=== PATIENT | male | born 1935 | race Two or more races ===

== ENCOUNTER 2018-09-14 08:21 | Emergency (ER) | payer OTHER, MEDICAID ==
[~2018-09-14] VITALS: Ht 165.1 cm; Wt 86.2 kg
[~2018-09-14 08:21] MED LIST: ALBU0.084 NEB; CARV12.544 PO; FLUT250M2 IN; GEMF600T7 PO; ISOS20TA49 PO; LISI2.5T47 PO; METF-489 PO; NITR0.4S29 SL; OMEP20TA44 PO; TAMS0.4C36 PO
[2018-09-14 08:34] VITALS: BP 181/76
[2018-09-14] MEDS ORDERED: cefTRIAXone SOD 1,000 MG VL IM ONE (09:45)
== END 2018-09-14 10:10 | disposition home or self-care (01) ==
LOC: ER 08:21
DX: S20.212A Contusion of left front wall of thorax, initial encounter (principal); J44.9 Chronic obstructive pulmonary disease, unspecified; E11.9 Type 2 diabetes mellitus without complications; K21.9 Gastro-esophageal reflux disease without esophagitis; E78.5 Hyperlipidemia, unspecified; I10 Essential (primary) hypertension; I25.10 Atherosclerotic heart disease of native coronary artery without angina pectoris; Z90.49 Acquired absence of other specified parts of digestive tract; Z79.899 Other long term (current) drug therapy; W01.0XXA Fall on same level from slipping, tripping and stumbling without subsequent striking against object, initial encounter; Y93.89 Activity, other specified; Y92.89 Other specified places as the place of occurrence of the external cause; Y99.8 Other external cause status
CPT/HCPCS: 71101; 82962; 96372; 99283; J0696

== ENCOUNTER 2018-11-13 18:16 | Emergency (ER) | payer OTHER, MEDICAID ==
[~2018-11-13] VITALS: Ht 165.1 cm; Wt 86.2 kg
[2018-11-13 22:35] LABS: Basophils # (auto) 0 uL; Basophils % (auto) 0.4 % (0.0-2.0); Eosinophils # (auto) 0.3 uL; Eosinophils % (auto) 5.2 % (0.0-7.0); Hematocrit 42.5 % (41.0-53.0); Hemoglobin 14.2 g/dL (13.5-17.5); Lymphocytes # (auto) 2.2 uL; Lymphocytes % (auto) 34.2 % (10.0-50.0); Mean Corpuscular Hemoglobin 30.5 pg (28.0-32.0); Mean Corpuscular Hgb Conc. 33.5 g/dL (32.0-36.0); Mean Corpuscular Volume 91.2 fL (80.0-100.0); Monocytes % (auto) 15.8 % (0.0-12.0); Neutrophils # (auto) 2.9 uL; Neutrophils % (auto) 44.4 % (37.0-80.0); Nucleated Red Blood Cells % 0.1 %; Platelet Count (auto) 248 10^3/uL (140-450); Red Blood Cells 4.66 10^6/uL (4.5-5.90); Red Cell Distribution Width 15.4 % (11.8-14.3); White Blood Cell 6.5 10^3/uL (4.4-10.8)
[2018-11-13 22:40] LABS: Albumin 3.9 g/dL (3.4-5.0); BUN/Creatinine Ratio 14.4; Calcium 8.7 mg/dL (8.5-10.1); Potassium 4.9 mmol/L (3.5-5.1)
[2018-11-13 22:43] LABS: Bilirubin, Total 0.6 mg/dL (0.2-1.0); Total Protein 8.2 g/dL (6.4-8.2)
[2018-11-14] MEDS ORDERED: ACETAMINOPHEN 325 MG TAB PO ONE (01:45)
[2018-11-14 04:44] VITALS: BP 137/57
== END 2018-11-14 05:10 | disposition home or self-care (01) ==
LOC: ER 18:16
DX: J01.00 Acute maxillary sinusitis, unspecified (principal); J44.9 Chronic obstructive pulmonary disease, unspecified; E11.9 Type 2 diabetes mellitus without complications; K21.9 Gastro-esophageal reflux disease without esophagitis; E78.5 Hyperlipidemia, unspecified; I25.10 Atherosclerotic heart disease of native coronary artery without angina pectoris; I10 Essential (primary) hypertension; Z90.49 Acquired absence of other specified parts of digestive tract
CPT/HCPCS: 36415; 71046; 80053; 85025; 87804; 93005

== ENCOUNTER 2020-08-22 13:18 | Inpatient (IN) | payer OTHER, MEDICAID ==
[~2020-08-22] VITALS: Ht 165.1 cm; Wt 80.8 kg
[~2020-08-22 13:18] MED LIST changes: +ASPI-394 PO; +CHOL20007 PO; +FLUT250M2 INH; +LORA10CA12 PO
[2020-08-22] MEDS ORDERED: SODIUM CHLORIDE 0.9% 1,000 ML IV ONE ×2 (13:45)
[2020-08-22 14:51] LABS: Basophils # (auto) 0 10 ^3/uL (0-0.2); Basophils % (auto) 0.6 % (0.0-2.0); Eosinophils # (auto) 0 10 ^3/uL (0-0.8); Eosinophils % (auto) 0.2 % (0.0-7.0); Hematocrit 46.3 % (41.0-53.0); Hemoglobin 15.2 g/dL (13.5-17.5); Lymphocytes # (auto) 1.4 10 ^3/uL (0.4-5.4); Lymphocytes % (auto) 22.7 % (10.0-50.0); Mean Corpuscular Hemoglobin 29.1 pg (28.0-32.0); Mean Corpuscular Hgb Conc. 32.8 g/dL (32.0-36.0); Mean Corpuscular Volume 88.8 fL (80.0-100.0); Monocytes # (auto) 0.6 10 ^3/uL (0-1.3); Monocytes % (auto) 9.6 % (0.0-12.0); Neutrophils # (auto) 4.2 10 ^3/uL (1.6-8.6); Neutrophils % (auto) 66.9 % (37.0-80.0); Nucleated Red Blood Cells % 0.1 %; Platelet Count (auto) 305 10^3/uL (140-450); Red Blood Cells 5.22 10^6/uL (4.5-5.90); Red Cell Distribution Width 16.5 % (11.8-14.3); White Blood Cell 6.2 10^3/uL (4.4-10.8)
[2020-08-22 15:06] LABS: INR 1.08 (0.9-1.15); Partial Thromboplastin Time 34.1 sec (23.0-31.2)
[2020-08-22 15:08] LABS: Potassium 4.2 mmol/L (3.5-5.1)
[2020-08-22 15:09] LABS: BUN/Creatinine Ratio 15.2
[2020-08-22 15:15] LABS: Bilirubin, Total 0.6 mg/dL (0.2-1.0); Total Protein 9.3 g/dL (6.4-8.2)
[2020-08-22] MEDS ORDERED: MORPHINE SULF INJ 2 MG/ML SYRINGE 1ML IV PRN ×3 (18:30→20:15)
[2020-08-22] MEDS ORDERED: NITROGLYCERIN 0.4 MG SL TAB SL PRN ×2 (18:30→20:15)
[2020-08-22] MEDS ORDERED: OMEP-260 PO (18:42)
[2020-08-22] MEDS ORDERED: METF-869 PO (18:42)
[2020-08-22] MEDS ORDERED: CARV3.1240 PO (18:42)
[2020-08-22] MEDS ORDERED: LISI-648 PO (18:42)
[2020-08-22] MEDS ORDERED: ASPI-498 PO (18:42)
[2020-08-22] MEDS ORDERED: ISOS1TAB37 PO (18:42)
[2020-08-22] MEDS ORDERED: ALBUAER3 IN (18:43)
[2020-08-22] MEDS ORDERED: PANTOPRAZOLE 40 MG/10 ML VIAL INJ IV ONE (20:00)
[2020-08-22] MEDS ORDERED: METOPROLOL SUCCINATE XL 50 MG TAB PO ONE (20:00)
[2020-08-22] MEDS ORDERED: SODIUM CHLORIDE 0.9% 2,000 ML IV ONE (20:00)
[2020-08-22] MEDS: SODIUM CHLORIDE 0.9% 1,000 ML IV SCH (20:00)
[2020-08-22] MEDS ORDERED: HYDROcodone-ACET 5/325MG TAB PO PRN (20:15)
[2020-08-22] MEDS ORDERED: ALUM & MAG HYDROX-SIMETH LIQ(MAALOX) 30 ML PO PRN (20:15)
[2020-08-22] MEDS ORDERED: ISOSORBIDE DINITRATE 10 MG TAB PO ONE (20:15)
[2020-08-22] MEDS ORDERED: LORazepam 0.5 MG TAB PO PRN (20:15)
[2020-08-22] MEDS ORDERED: hydrALAZINE HCL 25 MG TAB PO PRN (20:15)
[2020-08-22] MEDS ORDERED: DOCUSATE SOD 100 MG CAP PO PRN (20:15)
[2020-08-22] MEDS ORDERED: DEXTROSE (50%) 50ML SYRG IV PRN (20:15)
[2020-08-22] MEDS ORDERED: ONDANSETRON HCL 4 MG/2 ML VIAL IV PRN (20:15)
[2020-08-22] MEDS ORDERED: cefTRIAXone 1GM/50ML D5W 50 ML IV ONE ×3 (20:45)
[2020-08-22 21:09] VITALS: BP 126/56
--- NOTE | 2020-08-22 21:09 | NUR ---
Telemetry admit from ER AKI BUSH admitted to Telemetry Assumed care of patient, awake and alert x 3. No S/S of distress/SOB or pain. Tele box 96 matches pt all leads in place. Bed lowered and locked side rails up x 2. Call light and bedside table are within reach. Instructed on POC and to call for assist PRN, will continue to monitor for changes Q1hr and PRN.All questions and concerns addressed, patient verbalized understanding.
[2020-08-22] MEDS ORDERED: CLINDAMYCIN 600MG IV 50 ML IV ONE (21:30)
[2020-08-22 22:00] VITALS: BP 126/56
[2020-08-22] MEDS: BUDESONIDE (INHALATION) 0.5 MG/2 ML NEB NEB SCH (22:00)
[2020-08-22] MEDS: ACCU-CHEK COMFORT CURVE STRIP VI SCH (22:00)
[2020-08-22] MEDS: CARVEDILOL 3.125 MG TAB PO SCH (22:00)
[2020-08-22] MEDS: InsuLIN REG 1unit/0.01ml Soln (100units/ml) SC SCH (22:00)
[2020-08-22] MEDS: ISOSORBIDE DINITRATE 10 MG TAB PO SCH (22:00)
[2020-08-22] MEDS: IPRATROPIUM BROM 0.5 MG/2.5ML INH SOL NEB SCH (22:00)
[2020-08-22] MEDS: CLINDAMYCIN 600MG IV 50 ML IV SCH (22:00)
[2020-08-22] MEDS: ATORVASTATIN 20 MG TAB PO SCH (22:00)
[2020-08-23] MEDS: SODIUM CHLORIDE 0.9% 1,000 ML IV SCH ×2 (02:40→09:20)
[2020-08-23] MEDS: IPRATROPIUM BROM 0.5 MG/2.5ML INH SOL NEB SCH ×6 (04:04→22:37)
[2020-08-23 04:26] VITALS: BP 126/56
[2020-08-23 05:00] VITALS: BP 95/49
[2020-08-23] MEDS: BUDESONIDE (INHALATION) 0.5 MG/2 ML NEB NEB SCH ×2 (05:34→19:10)
[2020-08-23] MEDS: CLINDAMYCIN 600MG IV 50 ML IV SCH (06:01)
[2020-08-23] MEDS: InsuLIN REG 1unit/0.01ml Soln (100units/ml) SC SCH ×4 (07:00→22:30)
[2020-08-23] MEDS: ACCU-CHEK COMFORT CURVE STRIP VI SCH ×4 (07:11→22:27)
[2020-08-23 07:42] LABS: Potassium 4.1 mmol/L (3.5-5.1)
--- NOTE | 2020-08-23 07:45 | NUR ---
Opening Shift Note Assumed care of patient, awake and alert. No S/S of distress/SOB or pain. Instructed on POC and to call for assist PRN, will continue to monitor for changes Q1hr and PRN.
[2020-08-23 07:49] LABS: BUN/Creatinine Ratio 20.3; Calcium 8.2 mg/dL (8.5-10.1)
[2020-08-23 08:00] VITALS: BP 125/56
[2020-08-23 08:55] VITALS: BP 125/56
[2020-08-23] MEDS: cefTRIAXone 1GM/50ML D5W 50 ML IV SCH (08:58)
[2020-08-23] MEDS: PANTOPRAZOLE 40 MG/10 ML VIAL INJ IV SCH (09:03)
[2020-08-23] MEDS: ASPirin 81 mg TAB PO SCH (09:04)
[2020-08-23] MEDS: ISOSORBIDE DINITRATE 10 MG TAB PO SCH ×2 (09:04→22:27)
[2020-08-23] MEDS: CARVEDILOL 3.125 MG TAB PO SCH ×2 (09:05→22:30)
[2020-08-23] MEDS ORDERED: CHOLECALCIFEROL (VITD3) 2,000 UNIT CAP PO SCH (10:00)
[2020-08-23] MEDS ORDERED: ENOXAPARIN SOD 40 MG/0.4 ML SYRINGE SC SCH (10:00)
[2020-08-23] MEDS ORDERED: FLUT1AER6 IN (11:42)
[2020-08-23 13:00] VITALS: BP 110/49
[2020-08-23] MEDS ORDERED: MORPHINE SULF INJ 2 MG/ML SYRINGE 1ML IV PRN (13:00)
[2020-08-23] MEDS ORDERED: ZINC SULFATE 220mg CAP or TAB PO ONE (13:00)
--- NOTE | 2020-08-23 13:15 | NUR ---
COVID SWAB WALKED TO LAB
--- NOTE | 2020-08-23 14:00 | NUR ---
URINE SAMPLE SENT TO LAB
--- NOTE | 2020-08-23 14:00 | NUR ---
PATIENT ARRIVAL TO UNIT FROM [place] NO S/S OF DISTRESS OR SOB NOTED AT TIME OF ARRIVAL. PATENT HOOKED UP TO OXYGEN AND NEW TELE FOR [facility]
--- NOTE | 2020-08-23 14:00 | NUR ---
PATIENT TRANSFERRED TO [facility] FOR THE [facility]INDED ROOM 234 REPORT GIVEN TO JENNIFER HALL. NO DISTRESS NOTED. PATIENT TRANSFERRED VIA WHEELCHAIR WITH ALL PERSONAL BELONGINGS.
--- NOTE | 2020-08-23 14:10 | NUR ---
Respiratory note: MEDICATION HELD PENDING COVID RESULTS.
--- NOTE | 2020-08-23 14:23 | NUR ---
Nutrition Assessment/Consult Notes Please refer to link for full assessment notes. Est Energy needs: [id number] (17-20 kcal/kgBW) Est Protein needs: 90-99 gms/day (1.0-1.1 gm/kgBW) Will continue to monitor and reassess prn. Addendum: 08/23/20 at [address] Amended: Links added.
[2020-08-23 14:35] LABS: Urine Bacteria FEW /hpf (None Seen); Urine Blood 2+ /uL (Negative); Urine Mucus FEW (None Seen); Urine Specific Gravity 1.023 (1.001-1.035); Urine WBC 3 /hpf (0 - 3)
[2020-08-23 14:52] LABS: Alcohol, Urine < 3.0 mg/dL (0-10); Amphetamine Screen, Urine NEGATIVE (NEGATIVE); Barbiturate Scree,Urine NEGATIVE (NEGATIVE); Benzodiazephine Screen, Urine NEGATIVE (NEGATIVE); Cannabinoid Screen, Urine NEGATIVE (NEGATIVE); Cocaine Screen, Urine NEGATIVE (NEGATIVE); Opiate Scree,Urine NEGATIVE (NEGATIVE); Phencyclidine Screen, Urine NEGATIVE (NEGATIVE)
[2020-08-23] MEDS: TAMSULOSIN HYDROCHLORIDE 0.4 MG CAP PO SCH (18:05)
--- NOTE | 2020-08-23 19:40 | NUR ---
OPEN NOTE assumed care of pt upon entering room pt awake and alert. pt on 3L nc no distress noted or expressed. pt denies any pain. pt oriented to this nurse, pt updated on plan of care. pt bed locked, low and 2x rails up. pt voided on bed, pericare and new underpad placed. call light in reach. this nurse to round q1hr and prn. pt encouraged to call as needed.
[2020-08-23 22:06] VITALS: BP 143/61
--- NOTE | 2020-08-23 22:08 | NUR ---
pt had bm in bed, pericare performed and linens changed.
[2020-08-23] MEDS: SUCRALFATE 1 GM/10 ML ORAL SUSP PO SCH (22:27)
[2020-08-23] MEDS: ASCORBIC ACID 500 MG TAB PO SCH (22:27)
[2020-08-23] MEDS: ATORVASTATIN 20 MG TAB PO SCH (22:27)
--- NOTE | 2020-08-23 22:36 | NUR ---
pt had second bout of bowel incontinence in the bed, pt encouraged to stay in bed since his attempt at getting up to restroom prior to elimination unsuccessful and he risks slipping and falling. rehabilitation nurse used to convey this message to which patient agreed. violet care, performed. bed linens changes and evs cleaned floor. bed alarm active.
--- NOTE | 2020-08-23 22:40 | NUR ---
AT BEDSIDE FOR MED WILLARD ROBB.
[2020-08-24] MEDS: IPRATROPIUM BROM 0.5 MG/2.5ML INH SOL NEB SCH ×4 (02:09→23:31)
--- NOTE | 2020-08-24 02:14 | NUR ---
AT BEDSIDE FOR MED WILLARD ROBB.
--- NOTE | 2020-08-24 02:29 | NUR ---
rounds pt breathing even and unlabored on 3L nc. no s/s distress observed. bed locked, low and 2x rails up. call light in reach, will continue to monitor.
[2020-08-24 05:00] VITALS: BP 109/67
[2020-08-24 05:36] LABS: Basophils # (auto) 0 10 ^3/uL (0-0.2); Basophils % (auto) 0.5 % (0.0-2.0); Eosinophils # (auto) 0 10 ^3/uL (0-0.8); Eosinophils % (auto) 0.1 % (0.0-7.0); Hematocrit 41.1 % (41.0-53.0); Hemoglobin 13.2 g/dL (13.5-17.5); Lymphocytes # (auto) 1.2 10 ^3/uL (0.4-5.4); Lymphocytes % (auto) 22.5 % (10.0-50.0); Mean Corpuscular Hemoglobin 28.6 pg (28.0-32.0); Mean Corpuscular Hgb Conc. 32.2 g/dL (32.0-36.0); Mean Corpuscular Volume 88.8 fL (80.0-100.0); Monocytes # (auto) 0.4 10 ^3/uL (0-1.3); Monocytes % (auto) 7.1 % (0.0-12.0); Neutrophils # (auto) 3.8 10 ^3/uL (1.6-8.6); Neutrophils % (auto) 69.8 % (37.0-80.0); Nucleated Red Blood Cells % 0.3 %; Platelet Count (auto) 230 10^3/uL (140-450); Red Blood Cells 4.62 10^6/uL (4.5-5.90); White Blood Cell 5.4 10^3/uL (4.4-10.8)
[2020-08-24 06:01] LABS: Potassium 4.3 mmol/L (3.5-5.1)
[2020-08-24 06:15] LABS: BUN/Creatinine Ratio 19.5; Calcium 8.4 mg/dL (8.5-10.1)
[2020-08-24] MEDS: BUDESONIDE (INHALATION) 0.5 MG/2 ML NEB NEB SCH ×2 (06:25→23:31)
[2020-08-24] MEDS: SUCRALFATE 1 GM/10 ML ORAL SUSP PO SCH ×4 (06:55→22:56)
[2020-08-24] MEDS: InsuLIN REG 1unit/0.01ml Soln (100units/ml) SC SCH ×4 (06:55→21:34)
[2020-08-24] MEDS: ACCU-CHEK COMFORT CURVE STRIP VI SCH ×4 (06:55→21:35)
--- NOTE | 2020-08-24 07:20 | NUR ---
OPENING NOTE ASSUMED CARE OF PT. ALERT AND ORIENTED. NO S/S OF SOB/DISTRESS NOTED. BED SET TO LOWEST POSITION/LOCKED. BEDSIDE RAILS UP X2. CALL LIGHT WITHIN REACH. INSTRUCTED PT TO CALL FOR ASSISTANCE. UPDATE ON POC. PT VERBALIZED UNDERSTANDING. WILL CONTINUE TO MONITOR Q1HR AND PRN FOR CHANGES.
[2020-08-24] MEDS: cefTRIAXone 1GM/50ML D5W 50 ML IV SCH (08:58)
[2020-08-24] MEDS: PANTOPRAZOLE 40 MG/10 ML VIAL INJ IV SCH (08:59)
[2020-08-24] MEDS: ASPirin 81 mg TAB PO SCH (08:59)
[2020-08-24] MEDS: AZITHROMYCIN 500MG/ 250ML 250 ML IV SCH (08:59)
[2020-08-24 09:00] VITALS: BP 116/72
[2020-08-24] MEDS: ZINC SULFATE 220mg CAP or TAB PO SCH (09:00)
[2020-08-24] MEDS: CARVEDILOL 3.125 MG TAB PO SCH ×2 (09:00→22:00)
[2020-08-24] MEDS: ISOSORBIDE DINITRATE 10 MG TAB PO SCH (09:01)
[2020-08-24] MEDS: ASCORBIC ACID 500 MG TAB PO SCH ×2 (09:01→22:56)
[2020-08-24] MEDS: CHOLECALCIFEROL (VITD3) 2,000 UNIT CAP PO SCH (09:01)
--- NOTE | 2020-08-24 11:13 | NUR ---
PAGED RE: PATIENTS INCREASED HR. AWAITING CALL BACK.
[2020-08-24] MEDS ORDERED: CARVEDILOL 3.125 MG TAB PO ONE (12:45)
[2020-08-24 13:00] VITALS: BP 140/60
[2020-08-24 17:00] VITALS: BP 111/54
[2020-08-24] MEDS: TAMSULOSIN HYDROCHLORIDE 0.4 MG CAP PO SCH (17:08)
--- NOTE | 2020-08-24 19:05 | NUR ---
OPENING NOTE- NOC SHIFT PATIENT IS ALERT AND ORIENTED X4 AND MAKES APPROPRIATE EYE CONTACT. PATIENT IS DIVEHI SPEAKING ONLY AND WILL NEED COMPUTER SYSTEMS CONSULTANT. PATIENT IS SITTING IN BED, DANGLING FEET. PATIENT DENIES DIZZINESS. NO S/SX OF DISTRESS, SOB OR PAIN. DISCUSSED POC WITH PATIENT AND INSTRUCTED PATIENT TO CALL PRN; PATIENT VERBALIZED UNDERSTANDING. BEDSIDE TABLE WITHIN REACH, CALL LIGHT WITHIN REACH, PERSONAL BELONGINGS WITHIN REACH. WILL CONTINUE TO MONITOR Q1H AND PRN.
[2020-08-24 20:05] VITALS: BP 110/50
--- NOTE | 2020-08-24 20:48 | NUR ---
REFUSED DINNER TRAY
[2020-08-24 22:00] VITALS: BP 110/50
[2020-08-24] MEDS: ATORVASTATIN 20 MG TAB PO SCH (22:56)
[2020-08-25] VITALS (7 sets, daily range): BP systolic 107–144; BP diastolic 50–84
[2020-08-25 05:30] LABS: Basophils # (auto) 0.1 10 ^3/uL (0-0.2); Basophils % (auto) 1.1 % (0.0-2.0); Eosinophils # (auto) 0 10 ^3/uL (0-0.8); Hemoglobin 13.4 g/dL (13.5-17.5); Lymphocytes # (auto) 1.1 10 ^3/uL (0.4-5.4); Lymphocytes % (auto) 22.5 % (10.0-50.0); Mean Corpuscular Hemoglobin 28.5 pg (28.0-32.0); Mean Corpuscular Volume 89.2 fL (80.0-100.0); Monocytes # (auto) 0.4 10 ^3/uL (0-1.3); Monocytes % (auto) 8.3 % (0.0-12.0); Neutrophils # (auto) 3.3 10 ^3/uL (1.6-8.6); Neutrophils % (auto) 68.1 % (37.0-80.0); Nucleated Red Blood Cells % 0.1 %; Platelet Count (auto) 235 10^3/uL (140-450); Red Blood Cells 4.71 10^6/uL (4.5-5.90); Red Cell Distribution Width 16.2 % (11.8-14.3); White Blood Cell 4.8 10^3/uL (4.4-10.8)
[2020-08-25 05:53] LABS: BUN/Creatinine Ratio 15.3; Calcium 8.5 mg/dL (8.5-10.1)
[2020-08-25] MEDS: InsuLIN REG 1unit/0.01ml Soln (100units/ml) SC SCH ×4 (06:32→23:13)
[2020-08-25] MEDS: SUCRALFATE 1 GM/10 ML ORAL SUSP PO SCH ×4 (06:32→22:38)
[2020-08-25] MEDS: ACCU-CHEK COMFORT CURVE STRIP VI SCH ×4 (06:32→22:00)
[2020-08-25] MEDS: BUDESONIDE (INHALATION) 0.5 MG/2 ML NEB NEB SCH ×2 (07:08→22:00)
[2020-08-25] MEDS: IPRATROPIUM BROM 0.5 MG/2.5ML INH SOL NEB SCH ×3 (07:08→22:00)
--- NOTE | 2020-08-25 08:00 | NUR ---
OPEN NOTE assumed care of pt upon entering room pt awake and alert. pt on 3L nc no distress noted or expressed.pt sitting bedside finished breakfast ate 100%. pt denies any pain. pt oriented to this nurse, pt updated on plan of care. pt bed locked, low and 2x rails up. call light in reach. this nurse to round q1hr and prn. pt encouraged to call as needed.
[2020-08-25] MEDS: cefTRIAXone 1GM/50ML D5W 50 ML IV SCH (08:48)
[2020-08-25] MEDS: ASPirin 81 mg TAB PO SCH (08:52)
[2020-08-25] MEDS: CARVEDILOL 3.125 MG TAB PO SCH ×2 (08:53→22:39)
[2020-08-25] MEDS: ZINC SULFATE 220mg CAP or TAB PO SCH (08:54)
[2020-08-25] MEDS: ASCORBIC ACID 500 MG TAB PO SCH ×2 (08:54→22:39)
[2020-08-25] MEDS: ISOSORBIDE DINITRATE 10 MG TAB PO SCH (08:54)
[2020-08-25] MEDS: CHOLECALCIFEROL (VITD3) 2,000 UNIT CAP PO SCH (08:54)
[2020-08-25] MEDS: AZITHROMYCIN 500MG/ 250ML 250 ML IV SCH (08:55)
[2020-08-25] MEDS: PANTOPRAZOLE 40 MG/10 ML VIAL INJ IV SCH (08:55)
--- NOTE | 2020-08-25 10:30 | NUR ---
BM PATIENT AMBULATED WITH FWW TO THE RESTROOM; REQUIRED STAND BY WITH MINIMAL ASSISTANCE. PATIENT UNABLE TO WIPE SELF; STAFF WIPED CLEAN THE PATIENT AFTER BM. TOLERATED WELL.
[2020-08-25 10:35] LABS: Hepatitis B Surface Antigen Negative (Negative); Hepatitis C Antibody Negative (Negative)
--- NOTE | 2020-08-25 11:24 | NUR ---
caregiver updated this rn spoke with Jaswant one of the patients caregivers. Per cg patient is confirmed to make all his own decisions and is able to sign all documents for consent for plasma and remdesivir.
--- NOTE | 2020-08-25 11:24 | NUR ---
provider bedside new orders to be carried out.
[2020-08-25] MEDS ORDERED: DexAMETHasone SOD PHOS 10MG/1ML VIAL INJ IV ONE (11:30)
--- NOTE | 2020-08-25 13:25 | NUR ---
IV removal INFILTRATED IV DC'd from left wrist with clean sterile technique, catheter fully intact. Pressure dressing applied to site. Patient tolerated well.
--- NOTE | 2020-08-25 15:00 | NUR ---
REMDESIVIR STARTING VITALS BP 107/57 P 83 RR 20 T 98.4 O2% 95 ON 2L NASAL CANNULA. DENIED PAIN OR SOB Addendum: 08/25/20 at 1807 by MATTHIAS MAO RN TIME STARTED 1700
--- NOTE | 2020-08-25 16:30 | NUR ---
IV insertion IV access obtained, via clean sterile technique by inserting 20 gauge catheter at after 1 attempt(s). IV secured properly. No trauma to site. Patient tolerated well.
[2020-08-25] MEDS ORDERED: REMDESIVIR 200 MG in NS 210ml LOADING DOSE ADULT IV ONE (17:00)
--- NOTE | 2020-08-25 17:00 | NUR ---
REMDESIVIR START TIME SEE PREVIOUS NOTE
--- NOTE | 2020-08-25 17:15 | NUR ---
REMDESIVIR VITALS 15 MIN AFTER STARTED BP 123/61 P 83 RR 20 T 100. O2% 91 ON 2L NASAL CANNULA. DENIED PAIN OR SOB
--- NOTE | 2020-08-25 17:30 | NUR ---
IV removal INFILTRATED IV DC'd with clean sterile technique, catheter fully intact. Pressure dressing applied to site. Patient tolerated well.
--- NOTE | 2020-08-25 17:40 | NUR ---
IV insertion LEFT FOREARM IV access obtained, via clean sterile technique by inserting 20 gauge catheter at after 2 attempt(s). IV secured properly. No trauma to site. Patient tolerated well. REMDESIVIR RUNNING
--- NOTE | 2020-08-25 18:30 | NUR ---
REMDESIVIR ENDING VITALS BP 130/60 P 83 RR 16 T 97.9 O2% 91 ON 2L NASAL CANNULA. DENIED PAIN OR SOB. TOLERATED WELL. FLUSHED WITH NS FOLLOWING TREATMENT
[2020-08-25] MEDS: TAMSULOSIN HYDROCHLORIDE 0.4 MG CAP PO SCH (18:53)
--- NOTE | 2020-08-25 19:20 | NUR ---
Opening Shift Note Received report from Blake, Assumed care of patient, awake and alert. No S/S of distress/SOB or pain. Instructed on POC and to call for assist PRN, will continue to monitor for changes Q1hr and PRN. Bed placed in lowest position, bed alarm turned on and call light within reach.
[2020-08-25] MEDS: ATORVASTATIN 20 MG TAB PO SCH (22:39)
[2020-08-26] VITALS (10 sets, daily range): BP systolic 96–142; BP diastolic 52–76
--- NOTE | 2020-08-26 03:29 | NUR ---
Patient is ambulatory using his walker with standby assist but heart rate tends to go up to 140BPM when patient is ambulating but goes down to 80's when at rest. Denies pain this time
--- NOTE | 2020-08-26 05:24 | NUR ---
Plasma infusion started. Patient is resting in bed alert and awake, no distress noted. Vitals are stable.
[2020-08-26] MEDS: BUDESONIDE (INHALATION) 0.5 MG/2 ML NEB NEB SCH ×2 (05:36→21:36)
[2020-08-26] MEDS: IPRATROPIUM BROM 0.5 MG/2.5ML INH SOL NEB SCH ×3 (05:36→21:36)
--- NOTE | 2020-08-26 06:15 | NUR ---
Plasma transfused. No reactions noted. Patient is laying in bed alert and awake, no distress noted and denies pain. Vitals are Blood pressure 100/60, temp 97.8, resp 18, pulse 102.
[2020-08-26 06:35] LABS: Basophils # (auto) 0 10 ^3/uL (0-0.2); Basophils % (auto) 0.1 % (0.0-2.0); Eosinophils # (auto) 0 10 ^3/uL (0-0.8); Hematocrit 42.9 % (41.0-53.0); Lymphocytes # (auto) 0.8 10 ^3/uL (0.4-5.4); Lymphocytes % (auto) 18.8 % (10.0-50.0); Mean Corpuscular Hemoglobin 28.7 pg (28.0-32.0); Mean Corpuscular Hgb Conc. 32.6 g/dL (32.0-36.0); Monocytes # (auto) 0.3 10 ^3/uL (0-1.3); Monocytes % (auto) 7.1 % (0.0-12.0); Neutrophils # (auto) 3.2 10 ^3/uL (1.6-8.6); Nucleated Red Blood Cells % 0.3 %; Platelet Count (auto) 265 10^3/uL (140-450); Red Blood Cells 4.87 10^6/uL (4.5-5.90); Red Cell Distribution Width 16.5 % (11.8-14.3); White Blood Cell 4.3 10^3/uL (4.4-10.8)
[2020-08-26 06:40] LABS: Albumin 2.9 g/dL (3.4-5.0); Calcium 8.6 mg/dL (8.5-10.1); Potassium 4.2 mmol/L (3.5-5.1)
[2020-08-26] MEDS: ACCU-CHEK COMFORT CURVE STRIP VI SCH ×4 (06:41→22:00)
[2020-08-26] MEDS: SUCRALFATE 1 GM/10 ML ORAL SUSP PO SCH ×4 (06:41→22:48)
[2020-08-26] MEDS: InsuLIN REG 1unit/0.01ml Soln (100units/ml) SC SCH ×4 (06:47→23:03)
[2020-08-26 06:50] LABS: BUN/Creatinine Ratio 20.3; Bilirubin, Total 0.3 mg/dL (0.2-1.0); Total Protein 7.5 g/dL (6.4-8.2)
[2020-08-26] MEDS: cefTRIAXone 1GM/50ML D5W 50 ML IV SCH (09:29)
[2020-08-26] MEDS: PANTOPRAZOLE 40 MG/10 ML VIAL INJ IV SCH (09:29)
[2020-08-26] MEDS: DexAMETHasone SOD PHOS 10MG/1ML VIAL INJ IV SCH (09:29)
[2020-08-26] MEDS: ASPirin 81 mg TAB PO SCH (09:29)
[2020-08-26] MEDS: ASCORBIC ACID 500 MG TAB PO SCH ×2 (09:30→22:48)
[2020-08-26] MEDS: ISOSORBIDE DINITRATE 10 MG TAB PO SCH (09:30)
[2020-08-26] MEDS: CARVEDILOL 3.125 MG TAB PO SCH ×2 (09:30→22:48)
[2020-08-26] MEDS: ZINC SULFATE 220mg CAP or TAB PO SCH (09:30)
[2020-08-26] MEDS: CHOLECALCIFEROL (VITD3) 2,000 UNIT CAP PO SCH (09:31)
--- NOTE | 2020-08-26 09:42 | NUR ---
PATIENT SUSTAINING HEART RATE IN 150'S NO S/S OF DISTRESS NOTED AT THIS TIME. SCHEDULED BETA FRANKY ADMINISTERED AT THIS TIME.
--- NOTE | 2020-08-26 10:10 | NUR ---
PAGED MD Jeremias DOUGLASS RE: HR SUSTAINING IN 150'S. AWAITING CALL BACK
[2020-08-26] MEDS ORDERED: DIGOXIN (250MCG/ML) 2 ML AMPULE IV ONE (11:45)
[2020-08-26] MEDS: AZITHROMYCIN 500MG/ 250ML 250 ML IV SCH (12:10)
--- NOTE | 2020-08-26 14:48 | NUR ---
Nutrition Followup Notes Pt wt is 90.0 kg/m2 Pt is positive for COVID. Pt is with a CCHO 75g diet, appetite is fair aeb ave 50% PO intake over 3 meals per RN doc. Consider a Renal Specific 90g protein,2gNa,K2,low phos/CCHO 60g diet. Est Energy needs: [id number] (17-20 kcal/kgBW) Est Protein needs: 90-99 gms/day (1.0-1.1 gm/kgBW) Will continue to monitor and reassess prn. LABS: Gluc 142 H, Alb 2.9 L GI: Pt had 1 BM today per RN doc BS: 20 low risk. Refer to wound assessment report for further details. PES: 1) Obesity r/t energy intake in excess of energy needs aeb BMI of 32.9 kg/m2 2) Altered nutrition related lab values r/t current medical condition aeb elev RFTs, low GFR, hypocalcemia Comments Will continue to monitor PO status, skin status, pertinent labs and weight trends. Will f/u in 3-5 days 1) Continue to closely monitor pt PO intake to meet at least 75% of meals 2) Consider a Renal Specific 90g protein,2gNa,K2,low phos/CCHO 60g diet 3) Continue current plan of care
[2020-08-26] MEDS: TAMSULOSIN HYDROCHLORIDE 0.4 MG CAP PO SCH (17:15)
--- NOTE | 2020-08-26 18:00 | NUR ---
IV insertion IV access obtained, via clean sterile technique by inserting 22 gauge catheter at RIGHT FOREARM after 1 attempt(s). IV secured properly. No trauma to site. Patient tolerated well.
[2020-08-26] MEDS: REMDESIVIR 100mg in NS 230ml DAILYx4DAYS (NO VENT) IV SCH (18:30)
--- NOTE | 2020-08-26 18:30 | NUR ---
PRE-INFUSION VITAL SIGNS BP 95/58 HR 134
--- NOTE | 2020-08-26 18:45 | NUR ---
15 MINUTE INFUSION VITAL SIGNS BP 91/69 HR 72
--- NOTE | 2020-08-26 19:20 | NUR ---
Opening Shift Note Received report from emmie Son RN. Assumed care of patient, awake and alert eating dinner. Assisted patient to cut meat and fixed coffee. No S/S of distress/SOB or pain. Instructed on POC and to call for assist PRN, will continue to monitor for changes Q1hr and PRN. Bed placed in lowest position, bed alarm turned on and call light within reach.
--- NOTE | 2020-08-26 20:30 | NUR ---
Post Remdesivir infusion vitals: 142/67, 90% on 10L Oxymizer, respirations 18, 136HR, temp 97.6. Patient is resting in bed alert and awake, no distress noted.
[2020-08-26] MEDS: ATORVASTATIN 20 MG TAB PO SCH (22:48)
[2020-08-27 05:00] VITALS: BP 142/73
[2020-08-27] MEDS: SUCRALFATE 1 GM/10 ML ORAL SUSP PO SCH ×4 (06:35→22:43)
[2020-08-27] MEDS: ACCU-CHEK COMFORT CURVE STRIP VI SCH ×4 (06:35→22:55)
[2020-08-27] MEDS: BUDESONIDE (INHALATION) 0.5 MG/2 ML NEB NEB SCH ×2 (06:48→21:46)
[2020-08-27] MEDS: IPRATROPIUM BROM 0.5 MG/2.5ML INH SOL NEB SCH ×3 (06:48→21:46)
[2020-08-27] MEDS: InsuLIN REG 1unit/0.01ml Soln (100units/ml) SC SCH ×4 (06:55→22:55)
[2020-08-27 07:55] LABS: Calcium 8.4 mg/dL (8.5-10.1)
[2020-08-27 08:02] LABS: Albumin 2.7 g/dL (3.4-5.0); BUN/Creatinine Ratio 28.7; Bilirubin, Total 0.3 mg/dL (0.2-1.0); Total Protein 7.1 g/dL (6.4-8.2)
[2020-08-27 09:00] VITALS: BP 105/63
[2020-08-27] MEDS: ASPirin 81 mg TAB PO SCH (10:19)
[2020-08-27] MEDS: CHOLECALCIFEROL (VITD3) 2,000 UNIT CAP PO SCH (10:20)
[2020-08-27] MEDS: ASCORBIC ACID 500 MG TAB PO SCH ×2 (10:20→22:43)
[2020-08-27] MEDS: ISOSORBIDE DINITRATE 10 MG TAB PO SCH (10:27)
[2020-08-27] MEDS: ZINC SULFATE 220mg CAP or TAB PO SCH (10:30)
[2020-08-27] MEDS: cefTRIAXone 1GM/50ML D5W 50 ML IV SCH (10:30)
[2020-08-27] MEDS: CARVEDILOL 3.125 MG TAB PO SCH ×2 (10:30→22:43)
[2020-08-27] MEDS: DexAMETHasone SOD PHOS 10MG/1ML VIAL INJ IV SCH (10:31)
[2020-08-27] MEDS: PANTOPRAZOLE 40 MG/10 ML VIAL INJ IV SCH (10:31)
--- NOTE | 2020-08-27 11:40 | NUR ---
Opening Shift Note Assumed patient care from RAFAEL Son. Patient currently out of bed with physical therapy using front wheel walker. No signs of distress at this time. Will continue to monitor q1hr and PRN.
--- NOTE | 2020-08-27 11:41 | NUR ---
CARE ENDORSED TO RAFAEL WELDON
[2020-08-27 12:27] VITALS: BP 89/47
[2020-08-27] MEDS: AZITHROMYCIN 500MG/ 250ML 250 ML IV SCH (12:46)
[2020-08-27 17:16] VITALS: BP 115/56
[2020-08-27] MEDS: TAMSULOSIN HYDROCHLORIDE 0.4 MG CAP PO SCH (17:59)
[2020-08-27] MEDS: REMDESIVIR 100mg in NS 230ml DAILYx4DAYS (NO VENT) IV SCH (17:59)
--- NOTE | 2020-08-27 18:05 | NUR ---
Remdesivir Medication administration starting BP 127/86 HR 84 15minute reassessment: 125/80 HR 69
--- NOTE | 2020-08-27 19:08 | NUR ---
Remdesivir Complete Medication administration complete. No signs of distress at this time. BP 116/53 HR 110 SpO2 93% on 12L oxymizer. Respirations even and unlabored.
--- NOTE | 2020-08-27 19:44 | NUR ---
Closing Shift Note Report given to NOC RN. No signs of distress at this time. Respirations even and unlabored on 12L oxymizer 93%SpO2.
--- NOTE | 2020-08-27 19:48 | NUR ---
Opening Shift Note Assumed care of patient, awake and alert. No S/S of distress/SOB or pain. Patient assisted to use the restroom. heart rate elevates with activity. Denies sob distress or pain. patient assisted back in bed. Instructed on POC and to call for assist PRN, will continue to monitor for changes Q1hr and PRN. bed in low position and call light within reach.
[2020-08-27 22:00] VITALS: BP 147/69
[2020-08-27] MEDS: ATORVASTATIN 20 MG TAB PO SCH (22:43)
--- NOTE | 2020-08-27 22:43 | NUR ---
Patient educated on how to use Incentive spirometer patient verbalized understanding
[2020-08-28] VITALS (8 sets, daily range): BP systolic 109–154; BP diastolic 48–79
--- NOTE | 2020-08-28 05:00 | NUR ---
0500 Patient assisted to use restroom. Upon ambulating and using restroom oxygen saturation is fluctuating between 85%-88%. Patient becomes SOB with activity. patient assisted back in bed, HOB elevated, Oxymizer at 13l, rr 22, HR 65bpm, denies pain.
--- NOTE | 2020-08-28 05:20 | NUR ---
Patient continues to fluctuate within 85%-88% patient denies distress or sob, patient placed on nonrebreather mask 15l, oxygen saturation 92% heart rate 74bpm, rr 21, denies sob distress or pain.
[2020-08-28 05:35] LABS: Basophils # (auto) 0 10 ^3/uL (0-0.2); Eosinophils # (auto) 0 10 ^3/uL (0-0.8); Hematocrit 44.1 % (41.0-53.0); Hemoglobin 14.3 g/dL (13.5-17.5); Lymphocytes # (auto) 0.8 10 ^3/uL (0.4-5.4); Lymphocytes % (auto) 7.1 % (10.0-50.0); Mean Corpuscular Hemoglobin 28.4 pg (28.0-32.0); Mean Corpuscular Hgb Conc. 32.5 g/dL (32.0-36.0); Mean Corpuscular Volume 87.4 fL (80.0-100.0); Monocytes # (auto) 0.9 10 ^3/uL (0-1.3); Monocytes % (auto) 8.2 % (0.0-12.0); Neutrophils % (auto) 84.7 % (37.0-80.0); Nucleated Red Blood Cells % 0.1 %; Platelet Count (auto) 368 10^3/uL (140-450); Red Blood Cells 5.05 10^6/uL (4.5-5.90); Red Cell Distribution Width 16.1 % (11.8-14.3); White Blood Cell 10.6 10^3/uL (4.4-10.8)
[2020-08-28 05:59] LABS: Albumin 3.1 g/dL (3.4-5.0); Bilirubin, Total 0.3 mg/dL (0.2-1.0); Calcium 8.8 mg/dL (8.5-10.1); Total Protein 7.5 g/dL (6.4-8.2)
[2020-08-28] MEDS: InsuLIN REG 1unit/0.01ml Soln (100units/ml) SC SCH ×4 (06:21→22:00)
[2020-08-28] MEDS: ACCU-CHEK COMFORT CURVE STRIP VI SCH ×4 (06:21→22:49)
[2020-08-28] MEDS: SUCRALFATE 1 GM/10 ML ORAL SUSP PO SCH ×4 (06:21→22:47)
--- NOTE | 2020-08-28 06:54 | NUR ---
patient rounds patient resting in bed denies sob distress or pain. patient oxygen titrated down to 13l nonrebreather oxygen saturation 94%. IV is intact and patent . Call light within reach and bed in low position.
--- NOTE | 2020-08-28 07:05 | NUR ---
REPORT GIVEN TO DAYSHIFT RN PATIENT DENIES SOB DISTRESS OR PAIN
[2020-08-28] MEDS: BUDESONIDE (INHALATION) 0.5 MG/2 ML NEB NEB SCH ×2 (07:40→22:21)
[2020-08-28] MEDS: IPRATROPIUM BROM 0.5 MG/2.5ML INH SOL NEB SCH ×3 (07:40→22:21)
[2020-08-28] MEDS: DexAMETHasone SOD PHOS 10MG/1ML VIAL INJ IV SCH (09:32)
[2020-08-28] MEDS: AZITHROMYCIN 500MG/ 250ML 250 ML IV SCH (09:32)
[2020-08-28] MEDS: PANTOPRAZOLE 40 MG/10 ML VIAL INJ IV SCH (09:32)
[2020-08-28] MEDS: cefTRIAXone 1GM/50ML D5W 50 ML IV SCH (09:32)
[2020-08-28] MEDS: CHOLECALCIFEROL (VITD3) 2,000 UNIT CAP PO SCH (09:33)
[2020-08-28] MEDS: ZINC SULFATE 220mg CAP or TAB PO SCH (09:33)
[2020-08-28] MEDS: ASPirin 81 mg TAB PO SCH (09:33)
[2020-08-28] MEDS: ASCORBIC ACID 500 MG TAB PO SCH ×2 (09:33→22:49)
[2020-08-28] MEDS: ISOSORBIDE DINITRATE 10 MG TAB PO SCH (09:34)
[2020-08-28] MEDS: CARVEDILOL 3.125 MG TAB PO SCH ×2 (09:34→22:49)
--- NOTE | 2020-08-28 11:22 | NUR ---
SPOKE WITH HOSPITALIST MARYCRUZ ABOUT PT STATUS. RECEIVED ORDER FOR HF THERAPY. PT WILL BE UPGRADED TO [facility] STATUS. ONCE MOVED HE WILL BE PLACED ON HIGH FLOW.
[2020-08-28] MEDS ORDERED: METOPROLOL TARTRATE 1MG/1ML-5ML VIAL IV ONE (11:44)
--- NOTE | 2020-08-28 12:30 | NUR ---
TELE PT TRANSFER TO [facility] AKI BUSH transferred to 262 via bed on separator operator and portable 02 on non-rebreather mask, oxygen saturation 91%, no distress noted. Patient connected to bedside monitor and oxygen. All patient medications and personal belongings transferred with patient to receiving floor. Physical assessment completed. RT transitioned patient to high flow. Tolerating well at this time with oxygen saturations maintaining greater than 92%. Denies pain or shortness of breath at this time. Patient educated to keep oxygen on as well as no ambulation without RN or tech at bedside. Patient verbalized understanding. Call light and personal belongings placed within reach. Will continue to monitor.
--- NOTE | 2020-08-28 12:36 | NUR ---
PT TRANSPORTED TO [facility] AND TRANSITIONED TO HF AT 60L 100% POX 92-93% PT APPEARS COMFORTABLE. NO DISTRESS NOTED.
--- NOTE | 2020-08-28 12:40 | NUR ---
CARDIOLOGY CONSULT DR.MEHTA MARIA MD REVIEWING MEDICAL CHART. ORDERS RECEIVED.
[2020-08-28] MEDS ORDERED: DIGOXIN (250MCG/ML) 2 ML AMPULE IV ONE (13:00)
--- NOTE | 2020-08-28 14:33 | NUR ---
AFIB RVR PATIENT HAS INTERMITTENT EPISODES OF ATRIAL FIBRILLATION WITH RAPID VENTRICULAR RATE 120-150'S, UNSUSTAINED. RATE WILL STAY FOR APPROXIMATELY 1 MINUTE AND CONVERT BACK TO SINUS 60-70'S. PATIENT RESTING IN BED WITHOUT ACTIVITY DURING EVENT. AWARE DUE TO PATIENT EXPERIENCING EPISODES PRIOR TO ARRIVAL TO [facility]. IV DIGOXIN DOSE ADMINISTERED. PATIENT DENIES PAIN OR DISTRESS.
--- NOTE | 2020-08-28 14:50 | NUR ---
ECHO LOCAL BULK DRIVER AT BEDSIDE.
--- NOTE | 2020-08-28 16:00 | NUR ---
REPOSITIONING PATIENT REFUSING TO BE REPOSITIONED AT THIS TIME. PATIENT NORMALLY ACTIVE AND AMBULATORY. PATIENT EDUCATED ON IMPORTANCE OF REPOSITIONING. PATIENT VERBALIZED UNDERSTANDING.
[2020-08-28] MEDS: REMDESIVIR 100mg in NS 230ml DAILYx4DAYS (NO VENT) IV SCH (17:00)
[2020-08-28] MEDS: TAMSULOSIN HYDROCHLORIDE 0.4 MG CAP PO SCH (17:44)
--- NOTE | 2020-08-28 17:56 | NUR ---
INTAKE/CARES PATIENT REPOSITIONED ON SIDE IN BED. PATIENT DOES NOT WANT TO EAT DINNER AT THIS TIME. CALL LIGHT AND PERSONAL BELONGINGS WITHIN REACH.
--- NOTE | 2020-08-28 18:19 | NUR ---
Respiratory note: RECEIVED PT ON HFNC UNIT, UNIT CHECK DONE FROM PTS ROOM DOOR DUE TO COVID PRECAUTIONS. UNIT CONNECTED TO RED OUTLET, MEDICAL AIR AND WALL O2 SOURCE, AMBU BAG AND MASK AT BEDSIDE. PT COMFORTABLY RESTING IN BEDS. NO S/S OF OF ACTIVE DISTRESS NOTED. WILL CONTINUE TO MONITOR.
--- NOTE | 2020-08-28 19:38 | NUR ---
REPORT REPORT GIVEN TO LEN HALL, CARE ENDORSED.
--- NOTE | 2020-08-28 20:00 | NUR ---
Opening Shift Note Assumed care of patient, awake and alert. No S/S of distress/SOB or pain. Instructed on POC and to call for assist PRN, will continue to monitor for changes. Pt resting, watching TV, and seems calm.
[2020-08-28] MEDS: AMIODARONE HCL 200 MG TAB PO SCH (22:48)
[2020-08-28] MEDS: ATORVASTATIN 20 MG TAB PO SCH (22:49)
[2020-08-29] VITALS (14 sets, daily range): BP systolic 105–156; BP diastolic 48–79
[2020-08-29 04:56] LABS: Albumin 2.6 g/dL (3.4-5.0); Calcium 8.2 mg/dL (8.5-10.1); Potassium 3.7 mmol/L (3.5-5.1)
[2020-08-29 05:02] LABS: BUN/Creatinine Ratio 31.7; Bilirubin, Total 0.4 mg/dL (0.2-1.0); Total Protein 6.3 g/dL (6.4-8.2)
--- NOTE | 2020-08-29 05:11 | NUR ---
Pt has remained stable this shift. Bathed and linens changed this morning. No S/S of distress but there was a recovery time after the bath of O2 sat from 86 up to 91% which took approx 30 minutes to recover. However, during this time pt did not show any stress or physical signs of shortness of breath.
[2020-08-29] MEDS: IPRATROPIUM BROM 0.5 MG/2.5ML INH SOL NEB SCH ×3 (06:37→21:49)
[2020-08-29] MEDS: BUDESONIDE (INHALATION) 0.5 MG/2 ML NEB NEB SCH ×2 (06:38→21:49)
[2020-08-29] MEDS: InsuLIN REG 1unit/0.01ml Soln (100units/ml) SC SCH ×4 (07:00→22:00)
[2020-08-29] MEDS: ACCU-CHEK COMFORT CURVE STRIP VI SCH ×4 (07:01→22:52)
[2020-08-29] MEDS: SUCRALFATE 1 GM/10 ML ORAL SUSP PO SCH ×4 (07:20→22:50)
[2020-08-29] MEDS: cefTRIAXone 1GM/50ML D5W 50 ML IV SCH (09:42)
[2020-08-29] MEDS: PANTOPRAZOLE 40 MG/10 ML VIAL INJ IV SCH (09:50)
[2020-08-29] MEDS: ASPirin 81 mg TAB PO SCH (09:51)
[2020-08-29] MEDS: DexAMETHasone SOD PHOS 10MG/1ML VIAL INJ IV SCH (09:51)
[2020-08-29] MEDS: CHOLECALCIFEROL (VITD3) 2,000 UNIT CAP PO SCH (09:55)
[2020-08-29] MEDS: ISOSORBIDE DINITRATE 10 MG TAB PO SCH (09:55)
[2020-08-29] MEDS: ZINC SULFATE 220mg CAP or TAB PO SCH (09:55)
[2020-08-29] MEDS: ASCORBIC ACID 500 MG TAB PO SCH ×2 (09:56→22:52)
[2020-08-29] MEDS: AMIODARONE HCL 200 MG TAB PO SCH ×2 (09:56→22:50)
[2020-08-29] MEDS: CARVEDILOL 3.125 MG TAB PO SCH ×2 (09:58→22:51)
[2020-08-29] MEDS: AZITHROMYCIN 500MG/ 250ML 250 ML IV SCH (10:54)
[2020-08-29] MEDS ORDERED: FUROSEMIDE 20 MG/2 ML VIAL IV ONE (12:30)
[2020-08-29] MEDS ORDERED: POTASSIUM CHL 20 Meq TABLET PO ONE (12:30)
[2020-08-29] MEDS ORDERED: ENOXAPARIN SOD 40 MG/0.4 ML SYRINGE SC ONE (12:30)
--- NOTE | 2020-08-29 13:02 | NUR ---
Nutrition Followup Notes WT: 90.0 kg Pt is positive for COVID. Pt is with a CCHO 75g 2 gm na ground diet, with adequte PO of 75% x 5 per RN doc. pt with no distress noted per RN Est Energy needs: [id number] (17-20 kcal/kgBW), Est Protein needs: 90-99 gms/day (1.0-1.1 gm/kgBW). Will continue to monitor and reassess prn. LABS: GLU 133 H CA 8.2 L ALB 2.6 L GI: Pt had 1 BM today per RN doc BS: 20 low risk. Refer to wound assessment report for further details. PES: 1) Obesity r/t energy intake in excess of energy needs aeb BMI of 32.9 kg/m2 2) Altered nutrition related lab values r/t current medical condition aeb elev RFTs, low GFR, hypocalcemia Comments Will continue to monitor PO status, skin status, pertinent labs and weight trends. Will f/u in 3-5 days 1) Refer to CDE on DC. 2) Continue current plan of care
--- NOTE | 2020-08-29 15:33 | NUR ---
Villa catheter insertion Patient assessed and determined to be in need of villa catheter. Order obtained from MD. Patient educated on catheter and reason for insertion. All questions answered. Villa catheter 16 gauge Danish inserted with clean sterile technique. Patient tolerated well.
--- NOTE | 2020-08-29 16:58 | NUR ---
REPORT GIVEN TO RECEIVING RAFAEL HUTCHINS RN VERBALIZED UNDERSTANDING. WILL PREPARE PATIENT FOR TRANSFER AFTER ACCU CHECK COMPLETE. Addendum: 08/29/20 at 1700 by Carlene Pena RN LAST ENTRY IN ERROR, WRONG PATIENT.
[2020-08-29] MEDS: TAMSULOSIN HYDROCHLORIDE 0.4 MG CAP PO SCH (17:02)
[2020-08-29] MEDS: REMDESIVIR 100mg in NS 230ml DAILYx4DAYS (NO VENT) IV SCH (17:07)
--- NOTE | 2020-08-29 20:00 | NUR ---
Opening Shift Note Assumed care of patient, awake and alert. No S/S of distress/SOB or pain. Instructed on POC and to call for assist PRN, will continue to monitor for changes.
[2020-08-29] MEDS: ATORVASTATIN 20 MG TAB PO SCH (22:52)
--- NOTE | 2020-08-29 23:48 | NUR ---
Pt remains stable. Pt was able to assist nurse in pushing himself up in bed with assist from nurse and bed positioning. Denies pain. Resting in bed watching TV, extra blanket given for comfort. Will continue to monitor.
[2020-08-30] VITALS (8 sets, daily range): BP systolic 97–173; BP diastolic 45–137
[2020-08-30 04:09] LABS: Calcium 8.2 mg/dL (8.5-10.1); Potassium 3.8 mmol/L (3.5-5.1)
[2020-08-30 04:12] LABS: BUN/Creatinine Ratio 31.3
[2020-08-30] MEDS: IPRATROPIUM BROM 0.5 MG/2.5ML INH SOL NEB SCH ×3 (06:48→18:38)
[2020-08-30] MEDS: BUDESONIDE (INHALATION) 0.5 MG/2 ML NEB NEB SCH ×2 (06:48→18:38)
--- NOTE | 2020-08-30 06:48 | NUR ---
Respiratory note: RECEIVED PT FROM PEANUT SHAKER ON HFNC ON 70L, 95% FIO2. NASAL PRONGS IN PLACE. NO SKIN REDNESS/BREAK DOWN NOTED. WATER LEVEL ADEQUATE. BS ARE COARSE/DIMINISHED BILATERALLY. MEDNEB TX GIVEN INLINE VIA AEROGEN WITH NO ADVERSE EFFECTS NOTED. FLOW DECREASED TO 60L, FIO2 85%. PT TOLERATED CHANGE WELL. RN AWARE OF CHANGES. WILL CONTINUE TO MONITOR PT. CHARTING COMPLETE FROM OUTSIDE OF PT ROOM PER COVID-19 PRECAUTIONS/PROTOCOL.
[2020-08-30] MEDS: InsuLIN REG 1unit/0.01ml Soln (100units/ml) SC SCH ×3 (07:00→18:16)
--- NOTE | 2020-08-30 08:09 | NUR ---
Pt remained stable this shift. No changes. Report given to AM shift, care endorsed.
[2020-08-30] MEDS: ACCU-CHEK COMFORT CURVE STRIP VI SCH ×4 (08:15→22:40)
[2020-08-30] MEDS: SUCRALFATE 1 GM/10 ML ORAL SUSP PO SCH ×4 (08:15→22:37)
[2020-08-30] MEDS: CARVEDILOL 3.125 MG TAB PO SCH ×2 (08:53→22:38)
[2020-08-30] MEDS: ASCORBIC ACID 500 MG TAB PO SCH ×2 (08:54→22:39)
[2020-08-30] MEDS: PANTOPRAZOLE 40 MG/10 ML VIAL INJ IV SCH (08:54)
[2020-08-30] MEDS: ASPirin 81 mg TAB PO SCH (08:54)
[2020-08-30] MEDS: DexAMETHasone SOD PHOS 10MG/1ML VIAL INJ IV SCH (08:54)
[2020-08-30] MEDS: AMIODARONE HCL 200 MG TAB PO SCH ×2 (08:54→22:37)
[2020-08-30] MEDS: ENOXAPARIN SOD 40 MG/0.4 ML SYRINGE SC SCH (08:54)
[2020-08-30] MEDS: ISOSORBIDE DINITRATE 10 MG TAB PO SCH (08:55)
[2020-08-30] MEDS: ZINC SULFATE 220mg CAP or TAB PO SCH (08:55)
[2020-08-30] MEDS: cefTRIAXone 1GM/50ML D5W 50 ML IV SCH (08:56)
[2020-08-30] MEDS: CHOLECALCIFEROL (VITD3) 2,000 UNIT CAP PO SCH (08:56)
[2020-08-30] MEDS: AZITHROMYCIN 500MG/ 250ML 250 ML IV SCH (10:00)
--- NOTE | 2020-08-30 10:12 | NUR ---
Family updated on pt status Family of AKI BUSH updated on patient's status and condition after password verification. All questions and concerns addressed. Jaswant verbalized understanding.
--- NOTE | 2020-08-30 12:10 | NUR ---
Respiratory note: ROUTINE HFNC CHECK COMPLETE. NASAL PRONGS IN PLACE. NO SKIN BREAK DOWN NOTED. WATER LEVEL ADEQUATE. DECREASED FLOW TO 55L, 70% FIO2. PT TOLERATED CHANGE WELL. SPO2 94%, HR 60, RR 16. RN AWARE. WILL CONTINUE TO MONITOR PT. CHARTING COMPLETE FROM OUTSIDE OF PT ROOM PER COVID-19 PRECAUTIONS/PROTOCOL.
[2020-08-30] MEDS ORDERED: FUROSEMIDE 20 MG/2 ML VIAL IV ONE (12:45)
[2020-08-30] MEDS ORDERED: POTASSIUM CHL 20 Meq TABLET PO ONE (12:45)
--- NOTE | 2020-08-30 14:48 | NUR ---
Respiratory note: ROUTINE HFNC CHECK COMPLETE. NASAL PRONGS IN PLACE. NO SKIN BREAK DOWN NOTED. WATER LEVEL ADEQUATE. INCREASED FLOW TO 60L, 85% FIO2 DUE TO PT DESATURATIONS IN MID 70'S. MEDNEB TX GIVEN INLINE VIA AEROGEN. CXR ORDERED FOR POSSIBLE ASPIRATION. RN AWARE. WILL CONTINUE TO MONITOR PT. CHARTING COMPLETE FROM OUTSIDE OF PT ROOM PER COVID-19 PRECAUTIONS/PROTOCOL.
[2020-08-30] MEDS: TAMSULOSIN HYDROCHLORIDE 0.4 MG CAP PO SCH (16:56)
--- NOTE | 2020-08-30 17:18 | NUR ---
Pt is an alert and oriented, primarily bengali speaking male. Pt resides alone and has an [facility] caregiver that comes for 5 hours a day , 5 days a week. Per caregiver she was ill for several days and unable to see patient. Pt has no family in the area and will be returning home or possible SNF. Pt will have to be reassessed once closer to discharge and more stable. Will followup and provide intervention as appropriate. Addendum: 08/30/20 at 1720 by CODY FOLEY Amended: Links added.
[2020-08-30] MEDS: ATORVASTATIN 20 MG TAB PO SCH (22:39)
[2020-08-31] VITALS (12 sets, daily range): BP systolic 106–148; BP diastolic 50–73
--- NOTE | 2020-08-31 | NUR ---
Pt remains stable. Desat to 67% but able to rebound after 15 min of coaching. Will continue to monitor.
[2020-08-31] MEDS: InsuLIN REG 1unit/0.01ml Soln (100units/ml) SC SCH ×5 (00:03→21:54)
[2020-08-31] MEDS: BUDESONIDE (INHALATION) 0.5 MG/2 ML NEB NEB SCH ×2 (06:29→22:38)
[2020-08-31] MEDS: IPRATROPIUM BROM 0.5 MG/2.5ML INH SOL NEB SCH ×3 (06:29→22:38)
[2020-08-31] MEDS: SUCRALFATE 1 GM/10 ML ORAL SUSP PO SCH ×4 (07:00→21:49)
[2020-08-31] MEDS: ACCU-CHEK COMFORT CURVE STRIP VI SCH ×4 (07:00→21:52)
--- NOTE | 2020-08-31 07:00 | NUR ---
Pt remains stable this shift. No further episodes of desat. Report given, care endorsed.
--- NOTE | 2020-08-31 08:00 | NUR ---
REPORT REPORT RECEIVED FROM LEN HALL, CARE ASSUMED. PT RESTING IN BED, NO DISTRESS. VS REMAIN STABLE.
--- NOTE | 2020-08-31 08:25 | NUR ---
INITIAL CONTACT MALE PATIENT SITTING IN HIGH FOWLERS FOR BREAKFAST. DENIES PAIN OR DISTRESS AT THIS TIME. AFEBRILE. PATIENT IS ALERT AND ORIENTED. MOVES ALL EXTREMITIES WITH EQUAL STRENGTH, ABLE TO REPOSITION SELF WITH SOME ASSISTANCE. PULSES PALPABLE RADIAL AND PEDAL BILATERALLY NO EDEMA NOTED. LUNGS HAVE EXPIRATORY WHEEZES. TOLERATING HIGH FLOW OXYGEN SATURATION 94% WITH 60 L AND FIO2 80%. NON-PRODUCTIVE COUGH, DESATURATION OCCURS WITH COUGHING TO 80%. HATFIELD CATHETER PRESENT, PATENT, AND SECURED BELOW BLADDER. PERFORMED ORAL AND PERSONAL CARE. SKIN INTACT. BED LOCKED IN LOWEST POSITION, ALL PERSONAL BELONGINGS PLACED WITHIN REACH. PATIENT INSTRUCTED TO CALL FOR ASSISTANCE. PATIENT VERBALIZED UNDERSTANDING.
[2020-08-31] MEDS: ASCORBIC ACID 500 MG TAB PO SCH ×2 (09:11→21:52)
[2020-08-31] MEDS: ASPirin 81 mg TAB PO SCH (09:11)
[2020-08-31] MEDS: ENOXAPARIN SOD 40 MG/0.4 ML SYRINGE SC SCH (09:11)
[2020-08-31] MEDS: AMIODARONE HCL 200 MG TAB PO SCH ×2 (09:11→21:49)
[2020-08-31] MEDS: PANTOPRAZOLE 40 MG/10 ML VIAL INJ IV SCH (09:11)
[2020-08-31] MEDS: ZINC SULFATE 220mg CAP or TAB PO SCH (09:11)
[2020-08-31] MEDS: CHOLECALCIFEROL (VITD3) 2,000 UNIT CAP PO SCH (09:12)
[2020-08-31] MEDS: CARVEDILOL 3.125 MG TAB PO SCH ×2 (09:12→21:51)
[2020-08-31] MEDS: ISOSORBIDE DINITRATE 10 MG TAB PO SCH (09:13)
--- NOTE | 2020-08-31 10:45 | NUR ---
PT PHYSICAL THERAPIST AT BEDSIDE FOR RANGE OF MOTION EXERCISE.
[2020-08-31] MEDS: cefTRIAXone 1GM/50ML D5W 50 ML IV SCH (10:49)
[2020-08-31] MEDS: DexAMETHasone SOD PHOS 10MG/1ML VIAL INJ IV SCH (11:02)
[2020-08-31] MEDS: AZITHROMYCIN 500MG/ 250ML 250 ML IV SCH (11:02)
--- NOTE | 2020-08-31 11:32 | NUR ---
DESATURATION PATIENT HAS FREQUENT COUGHING EPISODES CAUSING PATIENTS O2 SATURATIONS TO DROP TO 77%. PATIENT WAS NOT RECOVERING, SATURATIONS MAINTAINING ONLY 74-77%. RT PAGED. HIGH FLOW CHANGED TO 60L AND 90% FIO2. PATIENT POSITIONED IN HIGH FOWLERS. SATURATIONS INCREASED BRIEFLY TO 88-90%. PATIENT HAD ANOTHER COUGHING EPISODE WITH O2 SATURATIONS DECREASING TO 77%. MD PAGED FOR COUGHING MEDICATION.
--- NOTE | 2020-08-31 11:39 | NUR ---
MD RETURNED PAGED AWARE OF COUGHING EPISODES AND DESATURATION. ORDERS OBTAINED FOR COUGH MEDICATION.
[2020-08-31] MEDS ORDERED: PROMETHAZINE W/CODEINE 5 ML ORAL SYRUP PO PRN (11:45)
--- NOTE | 2020-08-31 12:08 | NUR ---
MD VISIT DR.GOMEZ SIFUENTES AT BEDSIDE. WANING TO ODER FIVE ADDITIONAL DOSES OF REMDESIVER FOR PATIENT. SPOKE WITH ESSIE PHARMACIST, SHE IS CONTACTING HER DATABASE PROGRAMMER ANALYST. PER PHARMACIST, THEY WILL NOT APPROVE OF ADDITIONAL DOSES. WILL NOTIFY .
--- NOTE | 2020-08-31 12:16 | NUR ---
MD VISIT DR.NOROHNA SIFUENTES AT BEDSIDE.
[2020-08-31] MEDS ORDERED: FUROSEMIDE 20 MG/2 ML VIAL IV ONE (12:45)
[2020-08-31] MEDS ORDERED: POTASSIUM CHL 20 Meq TABLET PO ONE (12:45)
--- NOTE | 2020-08-31 13:41 | NUR ---
ROUNDS PATIENT SLEEPING IN HIGH FOWLERS. NO SIGNS OF DISTRESS. OXYGEN SATURATION 96%. WILL CONTINUE TO MONITOR.
--- NOTE | 2020-08-31 14:30 | NUR ---
IV INSERTION IV access obtained, via clean sterile technique by inserting 22 gauge catheter at right hand after 1 attempt. IV secured properly. No trauma to site. Patient tolerated well.
--- NOTE | 2020-08-31 16:26 | NUR ---
CONTACT CALLED FOR UPDATED ON PATIENT. PASSWORD VERIFIED.
[2020-08-31] MEDS: TAMSULOSIN HYDROCHLORIDE 0.4 MG CAP PO SCH (17:28)
--- NOTE | 2020-08-31 17:50 | NUR ---
ROUNDS PATIENT REPOSITIONED IN BED FOR DINNER. VITAL REMAIN STABLE AT THIS TIME. OXYGEN SATURATION MAINTAINING 90-91%. DENIES PAIN OR DISTRESS. CALL LIGHT AND PERSONAL BELONGINGS WITHIN REACH.
--- NOTE | 2020-08-31 19:05 | NUR ---
Opening Shift Note Received shift report and assumed care of patient, awake and alert watching TV patient currently on HF NC 50L @ 90% FIO2 No S/s of distress at this time.
--- NOTE | 2020-08-31 19:11 | NUR ---
REPORT REPORT GIVEN TO BRYSON HALL, CARE ENDORSED.
--- NOTE | 2020-08-31 20:00 | NUR ---
Elevated Temp Patient temp is 99.0 cooling measures implemented will continue to monitor. Addendum: 08/31/20 at 2101 by BRYSON AMBROCIO RN RN Documented on the wrong patient.
[2020-08-31] MEDS: ATORVASTATIN 20 MG TAB PO SCH (21:52)
--- NOTE | 2020-08-31 22:12 | NUR ---
Medication Held Coreg Held HR 56 BP 114/52
[2020-09-01] VITALS (11 sets, daily range): BP systolic 116–148; BP diastolic 54–70
--- NOTE | 2020-09-01 00:24 | NUR ---
Patient Rounding Patient resting quietly in bed without any s/s of distress, assisted patient with position changed, patient tolerated process with Minimal distress.
--- NOTE | 2020-09-01 03:00 | NUR ---
PATIENT ROUNDING Patient resting quietly in bed with eyes closed without s/s of distress
[2020-09-01 04:47] LABS: Hematocrit 44.2 % (41.0-53.0); Hemoglobin 14.2 g/dL (13.5-17.5); Mean Corpuscular Hemoglobin 28.2 pg (28.0-32.0); Mean Corpuscular Hgb Conc. 32.1 g/dL (32.0-36.0); Mean Corpuscular Volume 87.9 fL (80.0-100.0); Platelet Count (auto) 456 10^3/uL (140-450); Red Blood Cells 5.03 10^6/uL (4.5-5.90); Red Cell Distribution Width 16.7 % (11.8-14.3); White Blood Cell 9.7 10^3/uL (4.4-10.8)
[2020-09-01 04:48] LABS: Potassium 4.3 mmol/L (3.5-5.1)
[2020-09-01 04:53] LABS: BUN/Creatinine Ratio 34.4; Calcium 8.8 mg/dL (8.5-10.1)
[2020-09-01 05:13] LABS: Basophils % (manual) 0 (0.0-2.0); Blast Cells 0; Eosinophils % (manual) 0 (0-7); Myelocytes % 0; Promyelocytes % 0; Reactive Lymphocytes 0
[2020-09-01 05:50] LABS: Band Neutrophils % (manual) 2; Lymphocytes % (manual) 17 (10.0-50.0); Metamyelocytes % 1; Monocytes % (manual) 5 (0-12)
[2020-09-01] MEDS: IPRATROPIUM BROM 0.5 MG/2.5ML INH SOL NEB SCH ×3 (06:04→21:22)
[2020-09-01] MEDS: BUDESONIDE (INHALATION) 0.5 MG/2 ML NEB NEB SCH ×2 (06:04→21:22)
[2020-09-01] MEDS: SUCRALFATE 1 GM/10 ML ORAL SUSP PO SCH ×4 (06:12→22:29)
[2020-09-01] MEDS: ACCU-CHEK COMFORT CURVE STRIP VI SCH ×4 (06:13→22:31)
[2020-09-01] MEDS: InsuLIN REG 1unit/0.01ml Soln (100units/ml) SC SCH ×4 (06:23→22:30)
--- NOTE | 2020-09-01 06:36 | NUR ---
Shift END Note Will provide report and endorse care, patient has been stable thought out the shift, patient remains sinus jose c on HF NC 60L@ 90% FIO2 with oxygen saturation in the mid 90's through out the shift.
--- NOTE | 2020-09-01 07:45 | NUR ---
INITIAL CONTACT REPORT RECEIVED FROM BRYSON HALL, CARE ASSUMED. MALE PATIENT OBSERVED SITTING IN HIGH FOWLERS. DENIES PAIN OR DISTRESS AT THIS TIME. AFEBRILE. PATIENT IS ALERT AND ORIENTED. MOVES ALL EXTREMITIES WITH EQUAL STRENGTH, NEEDS ASSISTANCE WITH REPOSITIONING. LOWER EXTREMITIES OFF LOADED ON PILLOWS. PULSES PALPABLE RADIAL AND PEDAL BILATERALLY NO EDEMA NOTED. LUNGS DIMINISHED, TOLERATING HIGH FLOW. OXYGEN SATURATION 96%. NON-PRODUCTIVE COUGH. HATFIELD CATHETER PRESENT, PATENT, AND SECURED BELOW BLADDER. PERFORMED ORAL AND PERSONAL CARE. SKIN INTACT. BED LOCKED IN LOWEST POSITION, ALL PERSONAL BELONGINGS PLACED WITHIN REACH. PATIENT INSTRUCTED TO CALL FOR ASSISTANCE. PATIENT VERBALIZED UNDERSTANDING.
[2020-09-01] MEDS: cefTRIAXone 1GM/50ML D5W 50 ML IV SCH (08:57)
--- NOTE | 2020-09-01 09:20 | NUR ---
PT PHYSICAL THERAPIST AT BEDSIDE.
--- NOTE | 2020-09-01 09:29 | NUR ---
CONTACT PATIENT BROTHER WHO LIVES IN [place] CALLED FOR UPDATE. DID NOT KNOW PASSWORD. PHONE CALL TRANSFERRED TO BEDSIDE PHONE.
[2020-09-01] MEDS: AZITHROMYCIN 250 MG TAB PO SCH (09:43)
[2020-09-01] MEDS: ENOXAPARIN SOD 40 MG/0.4 ML SYRINGE SC SCH (09:44)
[2020-09-01] MEDS: DexAMETHasone SOD PHOS 10MG/1ML VIAL INJ IV SCH (09:44)
[2020-09-01] MEDS: ZINC SULFATE 220mg CAP or TAB PO SCH (09:44)
[2020-09-01] MEDS: POTASSIUM CHL 20 Meq TABLET PO SCH (09:44)
[2020-09-01] MEDS: ASCORBIC ACID 500 MG TAB PO SCH ×2 (09:44→22:30)
[2020-09-01] MEDS: CHOLECALCIFEROL (VITD3) 2,000 UNIT CAP PO SCH (09:44)
[2020-09-01] MEDS: PANTOPRAZOLE 40 MG/10 ML VIAL INJ IV SCH (09:44)
[2020-09-01] MEDS: ASPirin 81 mg TAB PO SCH (09:44)
[2020-09-01] MEDS: ISOSORBIDE DINITRATE 10 MG TAB PO SCH (09:45)
[2020-09-01] MEDS: AMIODARONE HCL 200 MG TAB PO SCH ×2 (09:46→22:32)
[2020-09-01] MEDS: CARVEDILOL 3.125 MG TAB PO SCH ×2 (09:46→22:00)
[2020-09-01] MEDS: FUROSEMIDE 20 MG/2 ML VIAL IV SCH (10:00)
--- NOTE | 2020-09-01 10:20 | NUR ---
CARES PARTIAL LINEN CHANGE COMPLETED. PATIENT HAD SMALL SMEAR BOWEL MOVEMENT. EMILEE CARE COMPLETED AND GENTLE OPTIFOAM PLACED ON SACRUM FOR PREVENTION. PATIENT PULLED UP AND REPOSITION IN BED IN HIGH FOWLERS. PATIENT TOLERATED ACTIVITY WITHOUT DESATURATION LESS THAN 90%. PATIENT DID HAVE COUGHING EPISODE AFTER MEDICATION ADMINISTRATION IN WHICH HIS OXYGEN SATURATION DROPPED TO 77%, RECOVERED TO 89% AFTER 5 MINUTES. HEART RATE INCREASED TO 120'S FOR SHORT PERIOD, BUT THEN CONVERTED BACK TO SINUS RHYTHM WITH PAC'S 60'S. ALL OTHER VIAL SIGNS REMAIN STABLE. ALL EXTREMITIES OFF LOADED ON PILLOWS. CALL LIGHT AND PERSONAL BELONGINGS PLACED WITHIN REACH. PATIENT INSTRUCTED TO CALL FOR ASSISTANCE. PATIENT VERBALIZED UNDERSTANDING.
--- NOTE | 2020-09-01 12:08 | NUR ---
Nutrition Followup Notes WT: 89.6 kg Pt is positive for COVID. Pt is with a CCHO 75g 2 gm na ground diet, with a fair appetite aeb pt with 59% of po intake avg x 2 days per Rn nutrition note Est Energy needs: 6550-3867 (17-20 kcal/kgBW), Est Protein needs: 90-99 gms/day (1.0-1.1 gm/kgBW). Will continue to monitor and reassess prn. LABS: GLU 137H, alb 2.6L, BUN 42H GI: Pt had 1 BM 08/31 per RN doc BS: 18 mod risk. Refer to wound assessment report for further details. PES: 1) Obesity r/t energy intake in excess of energy needs aeb BMI of 32.9 kg/m2 2) Altered nutrition related lab values r/t current medical condition aeb elev RFTs, low GFR, hypocalcemia Comments Will continue to monitor PO intake, skin status, pertinent labs and weight trends. Will f/u in 3-5 days 1) Refer to CDE on DC. 2) Continue current plan of care
--- NOTE | 2020-09-01 12:10 | NUR ---
ROUNDS PATIENT REPOSITIONED IN HIGH FOWLERS FOR LUNCH. VITAL SIGNS STABLE. CALL LIGHT WITHIN REACH.
--- NOTE | 2020-09-01 14:40 | NUR ---
MD VISIT DR.NOROHNA SIFUENTES AT BEDSIDE.
[2020-09-01] MEDS: TAMSULOSIN HYDROCHLORIDE 0.4 MG CAP PO SCH (18:04)
--- NOTE | 2020-09-01 18:10 | NUR ---
ROUNDS PATIENT REPOSITIONED IN BED FOR DINNER. DENIES PAIN OR DISTRESS. VITALS REMAIN STABLE. CALL LIGHT AND PERSONAL BELONGINGS PLACED WITHIN REACH. WILL CONTINUE TO MONITOR.
--- NOTE | 2020-09-01 19:13 | NUR ---
REPORT REPORT GIVEN TO TERESA HALL, CARE ENDORSED.
--- NOTE | 2020-09-01 20:00 | NUR ---
Opening Shift Note Received report from day shift RN Lauren Jang RN. Pt came in on 08/22/20 with a CC of weakness and body pain for 4 days. Patient was COVID positive. Patient was admitted to TELE with a diagnosis of COVID, dehydration, and ROD. On 08/28 the patient was brought to [facility] due to the requirement of high flow o2. Pt's pertinent PMH includes CHF, COPD, Asthma, CAD, HTN, jeremías, Afib. Pt has had 4 doses of remdesivir and 1 dose of convalescent plasma. In this visit, patient has had intermittent episodes of A Fib RVR in which he is getting Amiodarone and digoxin PO. Pt is currently AAOx4, afebrile, oriented to staff and POC. Pt is currently on high flow o2 60L FIO2 at 90% spo2 95%. VSS at this time. Bed is locked at lowest position, side rails are up, call light is within reach. Pt educated aviation technical systems specialist light use and instructed to call if he needs anything. Pt verbalized understanding. Will continue to monitor.
--- NOTE | 2020-09-01 22:00 | NUR ---
Carvedilol held beta rosalia held due to patients HR being in the 50's, at times in the 40's.
[2020-09-01] MEDS: ATORVASTATIN 20 MG TAB PO SCH (22:30)
[2020-09-02] VITALS (10 sets, daily range): BP systolic 100–152; BP diastolic 43–80
--- NOTE | 2020-09-02 03:45 | NUR ---
Linen change provided Linen change provided for the patient. Pt spo2 desaturation to 81% upon turning. Within a couple minutes pt went up to 92-94%. No s/s of distress noted. Will continue to monitor
[2020-09-02] MEDS: BUDESONIDE (INHALATION) 0.5 MG/2 ML NEB NEB SCH ×2 (05:43→23:12)
[2020-09-02] MEDS: IPRATROPIUM BROM 0.5 MG/2.5ML INH SOL NEB SCH ×3 (05:44→23:12)
[2020-09-02] MEDS: InsuLIN REG 1unit/0.01ml Soln (100units/ml) SC SCH ×4 (06:34→22:38)
[2020-09-02] MEDS: ACCU-CHEK COMFORT CURVE STRIP VI SCH ×4 (06:34→22:17)
[2020-09-02] MEDS: SUCRALFATE 1 GM/10 ML ORAL SUSP PO SCH ×4 (06:34→22:17)
[2020-09-02] MEDS: cefTRIAXone 1GM/50ML D5W 50 ML IV SCH (07:51)
[2020-09-02] MEDS: DexAMETHasone SOD PHOS 10MG/1ML VIAL INJ IV SCH (07:51)
[2020-09-02] MEDS: FUROSEMIDE 20 MG/2 ML VIAL IV SCH (07:52)
[2020-09-02] MEDS: ASCORBIC ACID 500 MG TAB PO SCH ×2 (07:52→22:17)
[2020-09-02] MEDS: ENOXAPARIN SOD 40 MG/0.4 ML SYRINGE SC SCH (07:52)
[2020-09-02] MEDS: PANTOPRAZOLE 40 MG/10 ML VIAL INJ IV SCH (07:52)
[2020-09-02] MEDS: ISOSORBIDE DINITRATE 10 MG TAB PO SCH (07:53)
[2020-09-02] MEDS: POTASSIUM CHL 20 Meq TABLET PO SCH (07:53)
[2020-09-02] MEDS: CHOLECALCIFEROL (VITD3) 2,000 UNIT CAP PO SCH (07:54)
[2020-09-02] MEDS: AZITHROMYCIN 250 MG TAB PO SCH (07:54)
[2020-09-02] MEDS: ZINC SULFATE 220mg CAP or TAB PO SCH (07:54)
[2020-09-02] MEDS: ASPirin 81 mg TAB PO SCH (07:54)
--- NOTE | 2020-09-02 08:00 | NUR ---
HFNC PT RESTING IN BED. NO DISTRESS NOTED. BREATHING EVEN AND UNLABORED. CONNECTED TO MONITOR POX 93%, CALL LIGHT WITHIN REACH.
[2020-09-02] MEDS: CARVEDILOL 3.125 MG TAB PO SCH (09:19)
[2020-09-02] MEDS: AMIODARONE HCL 200 MG TAB PO SCH (09:20)
[2020-09-02] MEDS ORDERED: FUROSEMIDE 20 MG/2 ML VIAL IV ONE (14:30)
[2020-09-02] MEDS ORDERED: POTASSIUM EFFERVESENT TAB 25 MEQ PO ONE (14:30)
[2020-09-02] MEDS ORDERED: hydrALAZINE HCL 20 MG/ML VL IV PRN (14:45)
[2020-09-02] MEDS: TAMSULOSIN HYDROCHLORIDE 0.4 MG CAP PO SCH (16:34)
--- NOTE | 2020-09-02 20:00 | NUR ---
Opening Shift Note Received report from day shift Josue. HALL. Pt came in on 08/22/20 with a CC of weakness and body pain for 4 days. Patient was COVID positive. Patient was admitted to TELE with a diagnosis of COVID, dehydration, and ROD. On 08/28 the patient was brought to [facility] due to the requirement of high flow o2. Pt's pertinent PMH includes CHF, COPD, Asthma, CAD, HTN, jeremías, Afib. Pt has had 4 doses of remdesivir and 1 dose of convalescent plasma. Per report, RT tried titrating down the FIO2 by 5% and pt spo2 went down to hgih 80's-low 90's. RT then went back up on FIO2. Pt is currently AAOx4, afebrile, oriented to staff and POC. Pt is currently on high flow o2 60L FIO2 at 90% spo2 97%. VSS at this time. Bed is locked at lowest position, side rails are up, call light is within reach. Pt educated mobile application development lead light use and instructed to call if he needs anything. Pt verbalized understanding. Will continue to monitor.
--- NOTE | 2020-09-02 20:30 | NUR ---
IV dressing change Left wrist IV dressing changed with aseptic technique. Pt tolerated well. IV saline flush with no tenderness at the site. Site is clean and free of any redness of s/s of infection. Will continue to monitor.
[2020-09-02] MEDS: ATORVASTATIN 20 MG TAB PO SCH (22:17)
[2020-09-03] VITALS (10 sets, daily range): BP systolic 115–147; BP diastolic 56–112
--- NOTE | 2020-09-03 00:10 | NUR ---
Complete linen change/CHG wipes Complete linen change provided at this time. CHG wipes used for bed bath. Pt tolerated well. Will continue to monitor.
[2020-09-03 04:25] LABS: Eosinophils # (auto) 0 10 ^3/uL (0-0.8); Hematocrit 46.5 % (41.0-53.0); Hemoglobin 15.2 g/dL (13.5-17.5); Lymphocytes # (auto) 0.6 10 ^3/uL (0.4-5.4); Mean Corpuscular Volume 87.6 fL (80.0-100.0); Red Blood Cells 5.31 10^6/uL (4.5-5.90)
[2020-09-03 04:31] LABS: Basophils # (auto) 0 10 ^3/uL (0-0.2); Basophils % (auto) 0.4 % (0.0-2.0); Mean Corpuscular Hemoglobin 28.7 pg (28.0-32.0); Mean Corpuscular Hgb Conc. 32.8 g/dL (32.0-36.0); Monocytes # (auto) 0.8 10 ^3/uL (0-1.3); Monocytes % (auto) 6.4 % (0.0-12.0); Neutrophils # (auto) 10.6 10 ^3/uL (1.6-8.6); Neutrophils % (auto) 88.2 % (37.0-80.0); Nucleated Red Blood Cells % 0.2 %; Platelet Count (auto) 511 10^3/uL (140-450); Red Cell Distribution Width 15.9 % (11.8-14.3); White Blood Cell 12.1 10^3/uL (4.4-10.8)
[2020-09-03 05:06] LABS: Calcium 8.9 mg/dL (8.5-10.1); Potassium 4.2 mmol/L (3.5-5.1)
[2020-09-03] MEDS: IPRATROPIUM BROM 0.5 MG/2.5ML INH SOL NEB SCH ×3 (06:09→22:00)
[2020-09-03] MEDS: BUDESONIDE (INHALATION) 0.5 MG/2 ML NEB NEB SCH ×2 (06:09→22:00)
[2020-09-03] MEDS: ACCU-CHEK COMFORT CURVE STRIP VI SCH ×4 (06:14→22:27)
[2020-09-03] MEDS: SUCRALFATE 1 GM/10 ML ORAL SUSP PO SCH ×4 (06:15→22:26)
[2020-09-03] MEDS: InsuLIN REG 1unit/0.01ml Soln (100units/ml) SC SCH ×4 (06:35→22:28)
[2020-09-03] MEDS: cefTRIAXone 1GM/50ML D5W 50 ML IV SCH (08:33)
[2020-09-03] MEDS: DexAMETHasone SOD PHOS 10MG/1ML VIAL INJ IV SCH (08:36)
[2020-09-03] MEDS: FUROSEMIDE 20 MG/2 ML VIAL IV SCH (08:36)
[2020-09-03] MEDS: PANTOPRAZOLE 40 MG/10 ML VIAL INJ IV SCH (08:38)
[2020-09-03] MEDS: AMIODARONE HCL 200 MG TAB PO SCH (08:39)
[2020-09-03] MEDS: ZINC SULFATE 220mg CAP or TAB PO SCH (08:39)
[2020-09-03] MEDS: ASPirin 81 mg TAB PO SCH (08:39)
[2020-09-03] MEDS: ISOSORBIDE DINITRATE 10 MG TAB PO SCH (08:40)
[2020-09-03] MEDS: POTASSIUM CHL 20 Meq TABLET PO SCH (08:41)
[2020-09-03] MEDS: ASCORBIC ACID 500 MG TAB PO SCH ×2 (08:41→22:27)
[2020-09-03] MEDS: ENOXAPARIN SOD 40 MG/0.4 ML SYRINGE SC SCH (08:41)
[2020-09-03] MEDS: CHOLECALCIFEROL (VITD3) 2,000 UNIT CAP PO SCH (08:41)
[2020-09-03] MEDS: AZITHROMYCIN 250 MG TAB PO SCH (08:41)
--- NOTE | 2020-09-03 09:00 | NUR ---
RESTING IN BED NO DISTRESS NOTED. HFNC, POX 94%. WILL CONTINUE TO MONITOR.
--- NOTE | 2020-09-03 13:00 | NUR ---
BM PT ASSISTED AFTER HAVING BM. PT TOLERATED TURNING. CALL LIGHT REMAINS WITHIN REACH.
[2020-09-03] MEDS: TAMSULOSIN HYDROCHLORIDE 0.4 MG CAP PO SCH (17:55)
--- NOTE | 2020-09-03 20:00 | NUR ---
Opening Shift Note Received report from day shift Josue. HALL. Pt came in on 08/22/20 with a CC of weakness and body pain for 4 days. Patient was COVID positive. Patient was admitted to TELE with a diagnosis of COVID, dehydration, and ROD. On 08/28 the patient was brought to [facility] due to the requirement of high flow o2. Pt's pertinent PMH includes CHF, COPD, Asthma, CAD, HTN, jeremías, Afib. Pt has had 4 doses of remdesivir and 1 dose of convalescent plasma. Per report, RT titrated down FIO2 slowly during the day and patient tolerated well. Pt is currently AAOx4, afebrile, oriented to staff and POC. Pt is currently on high flow o2 60L FIO2 at 70% spo2 100%. VSS at this time. Bed is locked at lowest position, side rails are up, call light is within reach. Pt educated quality control projectionist light use and instructed to call if he needs anything. Pt verbalized understanding. Will continue to monitor.
[2020-09-03] MEDS: ATORVASTATIN 20 MG TAB PO SCH (22:27)
[2020-09-04] VITALS (12 sets, daily range): BP systolic 132–169; BP diastolic 44–98
--- NOTE | 2020-09-04 03:00 | NUR ---
Lab at bedside for blood draw
[2020-09-04 03:18] LABS: Eosinophils # (auto) 0 10 ^3/uL (0-0.8); Mean Corpuscular Hemoglobin 28.6 pg (28.0-32.0); Monocytes # (auto) 0.8 10 ^3/uL (0-1.3)
[2020-09-04 03:22] LABS: Basophils # (auto) 0 10 ^3/uL (0-0.2); Basophils % (auto) 0.2 % (0.0-2.0); Hematocrit 47.8 % (41.0-53.0); Hemoglobin 15.4 g/dL (13.5-17.5); Lymphocytes # (auto) 0.6 10 ^3/uL (0.4-5.4); Lymphocytes % (auto) 4.5 % (10.0-50.0); Mean Corpuscular Hgb Conc. 32.3 g/dL (32.0-36.0); Mean Corpuscular Volume 88.6 fL (80.0-100.0); Monocytes % (auto) 5.9 % (0.0-12.0); Neutrophils # (auto) 12.3 10 ^3/uL (1.6-8.6); Neutrophils % (auto) 89.4 % (37.0-80.0); Platelet Count (auto) 458 10^3/uL (140-450); Red Cell Distribution Width 16.3 % (11.8-14.3); White Blood Cell 13.8 10^3/uL (4.4-10.8)
[2020-09-04 03:46] LABS: Calcium 8.8 mg/dL (8.5-10.1); Potassium 4.4 mmol/L (3.5-5.1)
[2020-09-04 03:59] LABS: BUN/Creatinine Ratio 36.4; CRP High Sensitivity 1.26 mg/dL (< 0.3)
--- NOTE | 2020-09-04 05:30 | NUR ---
Complete linen change/CHG wipes Complete linen change and CHG bath provided for the patient by CCT. Pt tolerated well. Will continue to monitor.
[2020-09-04] MEDS: ACCU-CHEK COMFORT CURVE STRIP VI SCH ×4 (06:17→22:43)
[2020-09-04] MEDS: IPRATROPIUM BROM 0.5 MG/2.5ML INH SOL NEB SCH ×3 (06:21→21:52)
[2020-09-04] MEDS: BUDESONIDE (INHALATION) 0.5 MG/2 ML NEB NEB SCH ×2 (06:21→21:52)
[2020-09-04] MEDS: InsuLIN REG 1unit/0.01ml Soln (100units/ml) SC SCH ×4 (06:39→22:46)
[2020-09-04] MEDS: SUCRALFATE 1 GM/10 ML ORAL SUSP PO SCH ×4 (06:39→22:43)
[2020-09-04] MEDS: ISOSORBIDE DINITRATE 10 MG TAB PO SCH (08:30)
[2020-09-04] MEDS: AMIODARONE HCL 200 MG TAB PO SCH (08:30)
[2020-09-04] MEDS: ASCORBIC ACID 500 MG TAB PO SCH ×2 (10:16→22:43)
[2020-09-04] MEDS: POTASSIUM CHL 20 Meq TABLET PO SCH (10:16)
[2020-09-04] MEDS: DexAMETHasone SOD PHOS 10MG/1ML VIAL INJ IV SCH (10:16)
[2020-09-04] MEDS: ASPirin 81 mg TAB PO SCH (10:16)
[2020-09-04] MEDS: ZINC SULFATE 220mg CAP or TAB PO SCH (10:16)
[2020-09-04] MEDS: PANTOPRAZOLE 40 MG/10 ML VIAL INJ IV SCH (10:16)
[2020-09-04] MEDS: ENOXAPARIN SOD 40 MG/0.4 ML SYRINGE SC SCH (10:17)
[2020-09-04] MEDS: CHOLECALCIFEROL (VITD3) 2,000 UNIT CAP PO SCH (10:17)
[2020-09-04] MEDS: AZITHROMYCIN 250 MG TAB PO SCH (10:17)
--- NOTE | 2020-09-04 10:45 | NUR ---
FAMILY CALLED: UPDATE TALKED WITH PATIENT'S BROTHER, PW VERIFIED. UPDATED FAMILY ON PT'S CURRENT STATUS, V/S AND POC FOR TODAY. WILL CONTINUE TO MONITOR.
[2020-09-04] MEDS: cefTRIAXone 1GM/50ML D5W 50 ML IV SCH (11:15)
--- NOTE | 2020-09-04 12:18 | NUR ---
Nutrition Followup Notes WT: 84.8 kg Pt is positive for COVID. Pt is with a CCHO 75g 2 gm na ground diet, with adequate Po of 75% x 2 days per RN doc Est Energy needs: 1573-7103 (17-20 kcal/kgBW), Est Protein needs: 90-99 gms/day (1.0-1.1 gm/kgBW). Will continue to monitor and reassess prn. LABS: BUN 55 H CREAT 1.51 H GLU 146 H GI: Pt had 1 BM today per RN doc BS: 18 mod risk. Refer to wound assessment report for further details. PES: 1) Obesity r/t energy intake in excess of energy needs aeb BMI of 32.9 kg/m2 2) Altered nutrition related lab values r/t current medical condition aeb elev RFTs, low GFR, hypocalcemia Comments Will continue to monitor PO intake, skin status, pertinent labs and weight trends. Will f/u in 3-5 days 1) Refer to CDE on DC. 2) Continue current plan of care
--- NOTE | 2020-09-04 16:00 | NUR ---
REPORT: Report received, assumed care of patient.
[2020-09-04] MEDS: TAMSULOSIN HYDROCHLORIDE 0.4 MG CAP PO SCH (17:35)
[2020-09-04] MEDS: ATORVASTATIN 20 MG TAB PO SCH (22:43)
[2020-09-05] VITALS (8 sets, daily range): BP systolic 120–151; BP diastolic 42–110
[2020-09-05 04:32] LABS: BUN/Creatinine Ratio 38.2; Calcium 8.6 mg/dL (8.5-10.1); Potassium 4.3 mmol/L (3.5-5.1)
[2020-09-05] MEDS: ACCU-CHEK COMFORT CURVE STRIP VI SCH ×4 (06:12→21:25)
[2020-09-05] MEDS: SUCRALFATE 1 GM/10 ML ORAL SUSP PO SCH ×4 (06:13→21:24)
[2020-09-05] MEDS: InsuLIN REG 1unit/0.01ml Soln (100units/ml) SC SCH ×4 (06:13→21:25)
[2020-09-05] MEDS: IPRATROPIUM BROM 0.5 MG/2.5ML INH SOL NEB SCH ×3 (06:15→22:13)
[2020-09-05] MEDS: BUDESONIDE (INHALATION) 0.5 MG/2 ML NEB NEB SCH ×2 (06:16→22:13)
--- NOTE | 2020-09-05 06:16 | NUR ---
Respiratory note: RECEIVED PT ON HFNC ON ABOVE SETTINGS, WITH NASAL PRONGS IN PLACE. NO SKIN REDNESS, OR BREAK DOWN NOTED. WATER LEVEL ADEQUATE. BS ARE SLIGHTLY COARSE/DIMINISHED BILATERALLY. MEDNEB TX GIVEN VIA AEROGEN. WITH NO ADVERSE EFFECTS NOTED. NO NEW CHANGES ORDERED AT THIS TIME. WILL CONTINUE TO MONITOR PT.
--- NOTE | 2020-09-05 07:00 | NUR ---
Pt remained stable this shift. Independently worked IS. Denies pain. Report given to AM shift, care endorsed.
[2020-09-05] MEDS: cefTRIAXone 1GM/50ML D5W 50 ML IV SCH (09:00)
[2020-09-05] MEDS: AZITHROMYCIN 250 MG TAB PO SCH (10:00)
[2020-09-05] MEDS: PANTOPRAZOLE 40 MG/10 ML VIAL INJ IV SCH (10:00)
[2020-09-05] MEDS: POTASSIUM CHL 20 Meq TABLET PO SCH (10:00)
[2020-09-05] MEDS: ASCORBIC ACID 500 MG TAB PO SCH ×2 (10:00→21:25)
[2020-09-05] MEDS: DexAMETHasone SOD PHOS 10MG/1ML VIAL INJ IV SCH (10:00)
[2020-09-05] MEDS: ASPirin 81 mg TAB PO SCH (10:00)
[2020-09-05] MEDS: ENOXAPARIN SOD 40 MG/0.4 ML SYRINGE SC SCH (10:00)
[2020-09-05] MEDS: ZINC SULFATE 220mg CAP or TAB PO SCH (10:00)
[2020-09-05] MEDS: ISOSORBIDE DINITRATE 10 MG TAB PO SCH (10:00)
[2020-09-05] MEDS: CHOLECALCIFEROL (VITD3) 2,000 UNIT CAP PO SCH (10:00)
[2020-09-05] MEDS: AMIODARONE HCL 200 MG TAB PO SCH (10:00)
--- NOTE | 2020-09-05 10:30 | NUR ---
Respiratory note: PT TAKEN OFF HFNC, AND PLACED ON 15L OXYMIZER. RN AWARE. PT TOLERATED CHANGE WELL. SPO2 91%, HR 78, RR 20. WILL CONTINUE TO MONITOR PT. CHARTING COMPLETER FROM OUTSIDE OF PT ROOM PER COVID-19 PRECAUTIONS/PROTOCOL.
--- NOTE | 2020-09-05 13:35 | NUR ---
Respiratory note: PT FIO2 TITRATED TO 12L OXYMIZER. PT TOLERATED CHANGE WELL. SPO2 92%, HR 77, RR 22. RN AWARE. WILL CONTINUE TO MONITOR PT. CHARTING COMPLETE FROM OUT SIDE OF PT ROOM PER COVID-19 PRECAUTIONS/PROTOCOL.
[2020-09-05] MEDS ORDERED: FUROSEMIDE 40 MG TAB PO ONE (14:30)
[2020-09-05] MEDS: TAMSULOSIN HYDROCHLORIDE 0.4 MG CAP PO SCH (17:17)
[2020-09-05] MEDS: ATORVASTATIN 20 MG TAB PO SCH (21:25)
[2020-09-06 04:15] VITALS: BP 134/96
[2020-09-06 04:38] LABS: Basophils # (auto) 0 10 ^3/uL (0-0.2); Basophils % (auto) 0.2 % (0.0-2.0); Eosinophils # (auto) 0 10 ^3/uL (0-0.8); Hematocrit 47.6 % (41.0-53.0); Hemoglobin 15.4 g/dL (13.5-17.5); Lymphocytes # (auto) 0.6 10 ^3/uL (0.4-5.4); Lymphocytes % (auto) 5.5 % (10.0-50.0); Mean Corpuscular Hemoglobin 28.6 pg (28.0-32.0); Mean Corpuscular Hgb Conc. 32.4 g/dL (32.0-36.0); Mean Corpuscular Volume 88.3 fL (80.0-100.0); Monocytes # (auto) 0.5 10 ^3/uL (0-1.3); Monocytes % (auto) 4.7 % (0.0-12.0); Neutrophils # (auto) 9.6 10 ^3/uL (1.6-8.6); Neutrophils % (auto) 89.6 % (37.0-80.0); Nucleated Red Blood Cells % 0.1 %; Platelet Count (auto) 391 10^3/uL (140-450); White Blood Cell 10.7 10^3/uL (4.4-10.8)
[2020-09-06 05:04] LABS: Potassium 4.1 mmol/L (3.5-5.1)
[2020-09-06 05:12] LABS: BUN/Creatinine Ratio 32.7; Calcium 8.6 mg/dL (8.5-10.1)
[2020-09-06] MEDS: IPRATROPIUM BROM 0.5 MG/2.5ML INH SOL NEB SCH ×3 (06:05→21:28)
[2020-09-06] MEDS: BUDESONIDE (INHALATION) 0.5 MG/2 ML NEB NEB SCH ×2 (06:06→21:28)
[2020-09-06] MEDS: SUCRALFATE 1 GM/10 ML ORAL SUSP PO SCH ×4 (06:39→21:22)
[2020-09-06] MEDS: ACCU-CHEK COMFORT CURVE STRIP VI SCH ×4 (06:39→21:22)
[2020-09-06] MEDS: InsuLIN REG 1unit/0.01ml Soln (100units/ml) SC SCH ×4 (06:40→21:20)
--- NOTE | 2020-09-06 06:44 | NUR ---
Pt has remained stable this shift. No S/S of distress and has tolerated Oxymizer well at 8LPM. BM this morning, normal. Pt doing well and transferred to room [address] [facility], report given to Stephanie HALL, care endorsed.
--- NOTE | 2020-09-06 06:49 | NUR ---
Patient transferred to tele from [facility] FLOWERS admitted to Telemetry unit after SBAR received. Patient oriented to YANET HASKINS RN primary RN, unit, room, bed, and unit policies regarding patient care and visiting hours. Patient now on continuous telemetry monitoring, tele box # 21 and telemetry reading on arrival to unit is Sr 99bpm. Patient placed on bedside oxygen, weighed by bedscale and encouraged to call if they need something. All questions and concerns addressed, patient verbalized understanding.
[2020-09-06 07:01] VITALS: BP 144/70
--- NOTE | 2020-09-06 07:30 | NUR ---
Report given to dayshift rn patient denies sob distress or pain.
--- NOTE | 2020-09-06 07:30 | NUR ---
Opening Shift Note Assumed care of patient, awake and alert. No S/S of distress/SOB or pain. Instructed on POC and to call for assist PRN, will continue to monitor for changes Q1hr and PRN. Fall precautions in place per safety protocol. Patient currently on 8L Via Oxymizer with an 02 saturation of 94%.
--- NOTE | 2020-09-06 08:00 | NUR ---
Respiratory note: PT FIO2 TITRATED TO 8L OXYMIZER. PT TOLERATED CHANGE WELL. SPO2 94%, HR 78, RR 20. RN AWARE. WILL CONTINUE TO MONITOR PT.
[2020-09-06] MEDS: cefTRIAXone 1GM/50ML D5W 50 ML IV SCH (09:37)
[2020-09-06] MEDS: DexAMETHasone SOD PHOS 10MG/1ML VIAL INJ IV SCH (09:38)
[2020-09-06] MEDS: ZINC SULFATE 220mg CAP or TAB PO SCH (09:38)
[2020-09-06] MEDS: ASPirin 81 mg TAB PO SCH (09:38)
[2020-09-06] MEDS: AMIODARONE HCL 200 MG TAB PO SCH (09:39)
[2020-09-06] MEDS: ISOSORBIDE DINITRATE 10 MG TAB PO SCH (09:40)
[2020-09-06] MEDS: POTASSIUM CHL 20 Meq TABLET PO SCH (09:40)
[2020-09-06] MEDS: FUROSEMIDE 40 MG TAB PO SCH (09:41)
[2020-09-06] MEDS: FAMOTIDINE 20 MG TAB PO SCH (09:43)
[2020-09-06] MEDS: ASCORBIC ACID 500 MG TAB PO SCH ×2 (09:43→21:23)
[2020-09-06] MEDS: CHOLECALCIFEROL (VITD3) 2,000 UNIT CAP PO SCH (09:43)
[2020-09-06] MEDS: AZITHROMYCIN 250 MG TAB PO SCH (09:44)
[2020-09-06] MEDS: ENOXAPARIN SOD 40 MG/0.4 ML SYRINGE SC SCH ×2 (09:44→21:23)
--- NOTE | 2020-09-06 11:00 | NUR ---
Hospitalist MD Ignacio paged to notify of patients HR in the 130's. Patient Asymptomatic, however 02 Saturation in the high 80's. Patient changed from on Oxymizer to Non-Rebreather on 11L, patient's O2 now 95%. Awaiting call back at this time. Will cont to monitor patient.
--- NOTE | 2020-09-06 11:30 | NUR ---
Hospitalist MD Ignacio repaged, Patient HR continues to be ST in the 130's. Now on 15L non-rebreather with an O2 sat of 93%. Will cont to monitor patient.
--- NOTE | 2020-09-06 12:00 | NUR ---
Cardio Paged MD Wilkerson as patients HR continues to be in the 130's. Awaiting call back at this time. Will cont to monitor patient.
[2020-09-06 13:00] VITALS: BP 115/75
[2020-09-06] MEDS ORDERED: CARVEDILOL 3.125 MG TAB PO ONE (13:15)
[2020-09-06] MEDS ORDERED: FUROSEMIDE 20 MG/2 ML VIAL IV ONE (13:15)
--- NOTE | 2020-09-06 13:15 | NUR ---
Hospitalist MD Ignacio at bedside, aware of patient status. Per MD Ignacio, he will look over chart, make changes to medication, and order new tests. Will cont to monitor patient. Patient currently cont to be in the 130's HR with 15L Oxymizer.
[2020-09-06 17:00] VITALS: BP 101/54
[2020-09-06 17:52] VITALS: BP 101/54
[2020-09-06] MEDS: TAMSULOSIN HYDROCHLORIDE 0.4 MG CAP PO SCH (17:56)
--- NOTE | 2020-09-06 19:30 | NUR ---
Opening Shift Note Assumed care of patient, awake and alert. No S/S of distress/SOB or pain. Provided patient with water, patient tolerated well no signs or symptoms of aspiration noted or reported. HR 68bpm and oxygen saturation via 8l Oxymizer is at 93% Instructed on POC and to call for assist PRN, will continue to monitor for changes Q1hr and PRN.Bed in low position and call light within reach. fall precautions in place.
[2020-09-06] MEDS: ATORVASTATIN 20 MG TAB PO SCH (21:22)
[2020-09-06] MEDS: CARVEDILOL 3.125 MG TAB PO SCH (21:22)
[2020-09-06 22:00] VITALS: BP 134/63
--- NOTE | 2020-09-06 23:30 | NUR ---
Patient Oxygen saturation Patient oxygen saturation trending at 86-89% RR21, HR 64bpm. patient denies pain or distress.Patient is alert and awake. HOB elevated and Patient oxygen increased from 8l to 10l Oxymizer. Patient oxygen saturation continues to trend at 88-90%. Patient placed on 15 l nonrebreather oxygen saturation 93% rr 20 denies sob distress or pain. Patient continues to be on continuos oxygen saturation monitoring. Call light within reach and bed in low position.
--- NOTE | 2020-09-07 00:09 | NUR ---
patient oxygenation patient oxygen saturation 99% via 15l nonrebreather. Titrated patient oxygen to 10l Oxymizer patient saturation 94% denies sob distress or pain. 0029 patient oxygen saturation 94% denies sob distress or pain
[2020-09-07 00:36] VITALS: BP 134/63
[2020-09-07 05:00] VITALS: BP 133/73
[2020-09-07] MEDS: BUDESONIDE (INHALATION) 0.5 MG/2 ML NEB NEB SCH ×2 (06:05→20:36)
[2020-09-07] MEDS: IPRATROPIUM BROM 0.5 MG/2.5ML INH SOL NEB SCH ×3 (06:05→20:36)
--- NOTE | 2020-09-07 06:14 | NUR ---
Patient oxygen titrated to 8l Oxymizer patient oxygen saturation 93% patient tolerating well. Denies sob distress or pain. RT at bedside to give breathing treatment.
[2020-09-07] MEDS: ACCU-CHEK COMFORT CURVE STRIP VI SCH ×4 (06:16→22:24)
[2020-09-07] MEDS: InsuLIN REG 1unit/0.01ml Soln (100units/ml) SC SCH ×4 (06:16→22:24)
[2020-09-07] MEDS: SUCRALFATE 1 GM/10 ML ORAL SUSP PO SCH ×4 (06:16→22:17)
--- NOTE | 2020-09-07 07:16 | NUR ---
Report given to dayshift rn patient denies sob distress or pain
[2020-09-07 07:38] LABS: Calcium 8.6 mg/dL (8.5-10.1)
[2020-09-07 07:40] LABS: BUN/Creatinine Ratio 35.1
[2020-09-07 09:00] VITALS: BP 113/81
[2020-09-07] MEDS: CHOLECALCIFEROL (VITD3) 2,000 UNIT CAP PO SCH (09:06)
[2020-09-07] MEDS: cefTRIAXone 1GM/50ML D5W 50 ML IV SCH (09:06)
[2020-09-07] MEDS: ENOXAPARIN SOD 40 MG/0.4 ML SYRINGE SC SCH ×2 (09:06→22:17)
[2020-09-07] MEDS: DexAMETHasone SOD PHOS 10MG/1ML VIAL INJ IV SCH (09:06)
[2020-09-07] MEDS: ZINC SULFATE 220mg CAP or TAB PO SCH (09:07)
[2020-09-07] MEDS: AMIODARONE HCL 200 MG TAB PO SCH (09:07)
[2020-09-07] MEDS: ASPirin 81 mg TAB PO SCH (09:07)
[2020-09-07] MEDS: FUROSEMIDE 40 MG TAB PO SCH (09:08)
[2020-09-07] MEDS: ISOSORBIDE DINITRATE 10 MG TAB PO SCH (09:08)
[2020-09-07] MEDS: FAMOTIDINE 20 MG TAB PO SCH (09:08)
[2020-09-07] MEDS: AZITHROMYCIN 250 MG TAB PO SCH (09:08)
[2020-09-07] MEDS: ASCORBIC ACID 500 MG TAB PO SCH ×2 (09:08→22:18)
[2020-09-07] MEDS: POTASSIUM CHL 20 Meq TABLET PO SCH (09:09)
[2020-09-07] MEDS: CARVEDILOL 3.125 MG TAB PO SCH ×2 (09:10→22:21)
--- NOTE | 2020-09-07 12:33 | NUR ---
Nutrition Followup Notes WT: 83.6 kg Pt is positive for COVID. Pt is with a CCHO 75g 2 gm na ground diet, with adequate PO of 90% x 2 days per RN doc Est Energy needs: 5562-8673 (17-20 kcal/kgBW), Est Protein needs: 90-99 gms/day (1.0-1.1 gm/kgBW). Will continue to monitor and reassess prn. LABS: BUN 52 H CREAT 1.48 H GLU 126 H, Alb 2.6 L GI: Pt had 1 BM on 09/06 per RN doc BS: 19 low risk. Refer to wound assessment report for further details. PES: 1) Obesity r/t energy intake in excess of energy needs aeb BMI of 32.9 kg/m2 2) Altered nutrition related lab values r/t current medical condition aeb elev RFTs, low GFR, hypocalcemia Comments Will continue to monitor PO intake, skin status, pertinent labs and weight trends. Will f/u in 3-5 days 1) Refer to CDE on DC. 2) Continue current plan of care
[2020-09-07 13:00] VITALS: BP 118/47
--- NOTE | 2020-09-07 15:08 | NUR ---
Medicare IM Patient is on the covid unit and is covid positive. Ronan LANDEROS has been provided with IM for patient to sign and place in chart. Addendum: 09/07/20 at 1509 by Billie FOLEY Amended: Links added.
[2020-09-07 17:00] VITALS: BP 132/59
[2020-09-07] MEDS: TAMSULOSIN HYDROCHLORIDE 0.4 MG CAP PO SCH (17:49)
--- NOTE | 2020-09-07 18:39 | NUR ---
Titrated patients O2 to 7 L Oxymizer patients O2 saturation is 94%
--- NOTE | 2020-09-07 19:19 | NUR ---
Opening Shift Note Assumed care of patient, awake and alert. No S/S of distress/SOB or pain. HR 71 oxygen saturation 95% on 10 l oxymizer. Patient on continuos oxygen monitoring.Instructed on POC and to call for assist PRN, will continue to monitor for changes Q1hr and PRN. Bed in low position and call light within reach. Fall precautions in place
[2020-09-07 22:00] VITALS: BP 115/52
[2020-09-07] MEDS: ATORVASTATIN 20 MG TAB PO SCH (22:18)
--- NOTE | 2020-09-07 22:21 | NUR ---
Patient educated on how to use Incentive Spirometer patient verbalized understanding
--- NOTE | 2020-09-07 22:21 | NUR ---
Optifoam to scarum placed as preventative. Patient sacrum noted to be red skin intact. Patient encourage to reposition q2hrs as tolerated.
[2020-09-08 06:23] VITALS: BP 133/83
[2020-09-08] MEDS: BUDESONIDE (INHALATION) 0.5 MG/2 ML NEB NEB SCH ×2 (06:42→21:34)
[2020-09-08] MEDS: IPRATROPIUM BROM 0.5 MG/2.5ML INH SOL NEB SCH ×3 (06:42→21:34)
[2020-09-08] MEDS: SUCRALFATE 1 GM/10 ML ORAL SUSP PO SCH ×4 (06:44→21:58)
[2020-09-08] MEDS: InsuLIN REG 1unit/0.01ml Soln (100units/ml) SC SCH ×4 (06:50→22:08)
[2020-09-08] MEDS: ACCU-CHEK COMFORT CURVE STRIP VI SCH ×4 (06:50→22:06)
--- NOTE | 2020-09-08 07:19 | NUR ---
Report given to dayshift rn patient denies sob distress or pain
[2020-09-08] MEDS: ASPirin 81 mg TAB PO SCH (10:50)
[2020-09-08] MEDS: DexAMETHasone SOD PHOS 10MG/1ML VIAL INJ IV SCH (10:50)
[2020-09-08] MEDS: AMIODARONE HCL 200 MG TAB PO SCH (10:50)
[2020-09-08] MEDS: ZINC SULFATE 220mg CAP or TAB PO SCH (10:50)
[2020-09-08] MEDS: POTASSIUM CHL 20 Meq TABLET PO SCH (10:51)
[2020-09-08] MEDS: CARVEDILOL 3.125 MG TAB PO SCH ×2 (10:51→22:05)
[2020-09-08] MEDS: CHOLECALCIFEROL (VITD3) 2,000 UNIT CAP PO SCH (10:52)
[2020-09-08] MEDS: ASCORBIC ACID 500 MG TAB PO SCH ×2 (10:52→22:06)
[2020-09-08] MEDS: ENOXAPARIN SOD 40 MG/0.4 ML SYRINGE SC SCH ×2 (10:52→22:06)
[2020-09-08] MEDS: FAMOTIDINE 20 MG TAB PO SCH (10:52)
[2020-09-08] MEDS: ISOSORBIDE DINITRATE 10 MG TAB PO SCH (10:54)
[2020-09-08] MEDS: FUROSEMIDE 40 MG TAB PO SCH (10:54)
[2020-09-08 12:41] VITALS: BP 118/72
[2020-09-08 16:37] VITALS: BP 150/69
[2020-09-08] MEDS: TAMSULOSIN HYDROCHLORIDE 0.4 MG CAP PO SCH (17:22)
--- NOTE | 2020-09-08 19:20 | NUR ---
OPENING SHIFT NOTE Assumed care of patient who is Arabic speaker, alert and oriented, currently on 10L Oxymizer with no S/S of distress or SOB noted at this time. Patient denies any pain at this time. POC discussed with patient, all questions answered, patient verbalized understanding. Mendes is draining clear yellow urine, no kinks in tubing, hanging to the lowest part of the bed draining by gravity. Sacrum is reddened, optifoam applied, patient is encouraged to reposition q2hr. Bed locked in lowest position, side rails up x2. Call light within reach, encouraged to call for assistance as needed. Will continue to monitor PRN/Q1hr.
[2020-09-08] MEDS: ATORVASTATIN 20 MG TAB PO SCH (22:06)
[2020-09-08 22:10] VITALS: BP 133/69
[2020-09-08] MEDS ORDERED: SODIUM CHLORIDE 0.9% 1,000 ML IV SCH (22:30)
[2020-09-08] MEDS ORDERED: hydrALAZINE HCL 20 MG/ML VL IV PRN (22:45)
[2020-09-09 05:15] VITALS: BP 125/60
[2020-09-09] MEDS: FUROSEMIDE 40 MG TAB PO SCH ×2 (06:02→17:22)
[2020-09-09] MEDS: BUDESONIDE (INHALATION) 0.5 MG/2 ML NEB NEB SCH ×2 (06:05→21:30)
[2020-09-09] MEDS: IPRATROPIUM BROM 0.5 MG/2.5ML INH SOL NEB SCH ×3 (06:05→21:30)
[2020-09-09] MEDS: InsuLIN REG 1unit/0.01ml Soln (100units/ml) SC SCH ×4 (06:36→22:32)
[2020-09-09] MEDS: ACCU-CHEK COMFORT CURVE STRIP VI SCH ×4 (06:36→22:00)
[2020-09-09] MEDS: SUCRALFATE 1 GM/10 ML ORAL SUSP PO SCH ×4 (07:03→22:25)
--- NOTE | 2020-09-09 07:18 | NUR ---
CARE ENDORSED TO DAY SHIFT RN
[2020-09-09 08:49] VITALS: BP 124/59
[2020-09-09] MEDS: DexAMETHasone SOD PHOS 10MG/1ML VIAL INJ IV SCH (09:49)
[2020-09-09] MEDS: ASPirin 81 mg TAB PO SCH (09:50)
[2020-09-09] MEDS: ZINC SULFATE 220mg CAP or TAB PO SCH (09:53)
[2020-09-09] MEDS: AMIODARONE HCL 200 MG TAB PO SCH (09:53)
[2020-09-09] MEDS: CARVEDILOL 3.125 MG TAB PO SCH ×2 (09:54→22:26)
[2020-09-09] MEDS: ISOSORBIDE DINITRATE 10 MG TAB PO SCH (09:55)
[2020-09-09] MEDS: POTASSIUM CHL 20 Meq TABLET PO SCH (09:55)
[2020-09-09] MEDS: ASCORBIC ACID 500 MG TAB PO SCH ×2 (09:56→22:26)
[2020-09-09] MEDS: ENOXAPARIN SOD 40 MG/0.4 ML SYRINGE SC SCH ×2 (09:56→22:27)
[2020-09-09] MEDS: FAMOTIDINE 20 MG TAB PO SCH (09:56)
[2020-09-09] MEDS: CHOLECALCIFEROL (VITD3) 2,000 UNIT CAP PO SCH (09:56)
[2020-09-09 12:29] VITALS: BP 132/63
[2020-09-09 17:11] VITALS: BP 122/53
[2020-09-09] MEDS: TAMSULOSIN HYDROCHLORIDE 0.4 MG CAP PO SCH (17:22)
[2020-09-09 22:00] VITALS: BP 124/54
[2020-09-09] MEDS: ATORVASTATIN 20 MG TAB PO SCH (22:26)
[2020-09-10 02:56] VITALS: BP 124/54
[2020-09-10 05:00] VITALS: BP 125/51
[2020-09-10] MEDS: BUDESONIDE (INHALATION) 0.5 MG/2 ML NEB NEB SCH ×2 (05:58→21:26)
[2020-09-10] MEDS: IPRATROPIUM BROM 0.5 MG/2.5ML INH SOL NEB SCH ×3 (05:58→21:26)
[2020-09-10] MEDS: InsuLIN REG 1unit/0.01ml Soln (100units/ml) SC SCH ×4 (06:01→22:10)
[2020-09-10] MEDS: ACCU-CHEK COMFORT CURVE STRIP VI SCH ×4 (06:01→22:07)
[2020-09-10] MEDS: FUROSEMIDE 40 MG TAB PO SCH ×2 (06:04→17:45)
[2020-09-10] MEDS: SUCRALFATE 1 GM/10 ML ORAL SUSP PO SCH ×4 (06:04→22:14)
--- NOTE | 2020-09-10 07:03 | NUR ---
Care endorsed to AM RN, no SOB or distress. Pt resting in bed.
[2020-09-10 07:50] LABS: Basophils # (auto) 0 10 ^3/uL (0-0.2); Basophils % (auto) 0.1 % (0.0-2.0); Eosinophils # (auto) 0.1 10 ^3/uL (0-0.8); Eosinophils % (auto) 0.5 % (0.0-7.0); Hematocrit 46.9 % (41.0-53.0); Hemoglobin 15.4 g/dL (13.5-17.5); Lymphocytes # (auto) 0.8 10 ^3/uL (0.4-5.4); Lymphocytes % (auto) 7.1 % (10.0-50.0); Mean Corpuscular Hemoglobin 29.2 pg (28.0-32.0); Mean Corpuscular Hgb Conc. 32.9 g/dL (32.0-36.0); Mean Corpuscular Volume 88.8 fL (80.0-100.0); Monocytes # (auto) 0.7 10 ^3/uL (0-1.3); Monocytes % (auto) 6.3 % (0.0-12.0); Neutrophils # (auto) 9.9 10 ^3/uL (1.6-8.6); Platelet Count (auto) 270 10^3/uL (140-450); Red Blood Cells 5.28 10^6/uL (4.5-5.90); Red Cell Distribution Width 16.4 % (11.8-14.3); White Blood Cell 11.5 10^3/uL (4.4-10.8)
[2020-09-10 08:13] LABS: Potassium 4.1 mmol/L (3.5-5.1)
[2020-09-10 08:23] LABS: BUN/Creatinine Ratio 36.1; Calcium 8.6 mg/dL (8.5-10.1)
[2020-09-10 09:09] VITALS: BP 140/65
[2020-09-10] MEDS: DexAMETHasone SOD PHOS 10MG/1ML VIAL INJ IV SCH (09:57)
[2020-09-10] MEDS: ASPirin 81 mg TAB PO SCH (09:57)
[2020-09-10] MEDS: ZINC SULFATE 220mg CAP or TAB PO SCH (09:57)
[2020-09-10] MEDS: AMIODARONE HCL 200 MG TAB PO SCH (09:58)
[2020-09-10] MEDS: POTASSIUM CHL 20 Meq TABLET PO SCH (09:59)
[2020-09-10] MEDS: FAMOTIDINE 20 MG TAB PO SCH (09:59)
[2020-09-10] MEDS: ISOSORBIDE DINITRATE 10 MG TAB PO SCH (09:59)
[2020-09-10] MEDS: CARVEDILOL 3.125 MG TAB PO SCH ×2 (09:59→22:14)
[2020-09-10] MEDS: CHOLECALCIFEROL (VITD3) 2,000 UNIT CAP PO SCH (10:00)
[2020-09-10] MEDS: ENOXAPARIN SOD 40 MG/0.4 ML SYRINGE SC SCH ×2 (10:00→22:15)
[2020-09-10] MEDS: ASCORBIC ACID 500 MG TAB PO SCH ×2 (10:00→22:14)
--- NOTE | 2020-09-10 10:01 | NUR ---
REGARDING SKIN: OPTIFOAM APPLIED TO PATIENTS SACRUM. SKIN TO SACRUM BLANCHABLE REDNESS. ENCOURAGED TO TURN. PATIENT POSITIONED TO LEFT SIDE.
--- NOTE | 2020-09-10 11:57 | NUR ---
Ajith DOUGLASS AT BEDSIDE.
--- NOTE | 2020-09-10 12:35 | NUR ---
HATFIELD CATHETER REMOVED PER M.D. ORDERS. PATIENT TOLERATED WELL. URINAL PLACED AT BEDSIDE.
[2020-09-10 13:00] VITALS: BP 119/60
--- NOTE | 2020-09-10 13:28 | NUR ---
Nutrition Followup Notes WT: 82.6 kg Pt is positive for COVID. Pt is with a CCHO 75g/ 2gm Na diet, with adequate PO of 80% x 2 days per RN doc Est Energy needs: 4079-8102 (17-20 kcal/kgBW), Est Protein needs: 90-99 gms/day (1.0-1.1 gm/kgBW). Will continue to monitor and reassess prn. LABS: BUN 44 H, GLU 121 H, Alb 2.6 L GI: Pt had 1 BM on 09/06 per RN doc BS: 19 low risk. Refer to wound assessment report for further details. PES: 1) Obesity r/t energy intake in excess of energy needs aeb BMI of 32.9 kg/m2 2) Altered nutrition related lab values r/t current medical condition aeb elev RFTs, low GFR, hypocalcemia Comments Will continue to monitor PO intake, skin status, pertinent labs and weight trends. Will f/u in 3-5 days 1) Refer to CDE on DC. 2) Continue current plan of care
--- NOTE | 2020-09-10 15:54 | NUR ---
PATIENT URINATED 150MLS OF CLEAR YELLOW URINE.
[2020-09-10 17:00] VITALS: BP 111/56
[2020-09-10] MEDS: TAMSULOSIN HYDROCHLORIDE 0.4 MG CAP PO SCH (17:42)
[2020-09-10 22:00] VITALS: BP 104/53
[2020-09-10] MEDS: ATORVASTATIN 20 MG TAB PO SCH (22:14)
--- NOTE | 2020-09-11 00:40 | NUR ---
Dr. Chao Wallace by bedside. Aware of elevated BUN and Cr. New orders for repeat covid inhouse test. Addendum: 09/11/20 at 0403 by TREMAYNE STEPHENS RN RN Disregard Note. Clarification.
[2020-09-11 05:00] VITALS: BP 112/57
[2020-09-11] MEDS: IPRATROPIUM BROM 0.5 MG/2.5ML INH SOL NEB SCH ×3 (05:45→22:11)
[2020-09-11] MEDS: BUDESONIDE (INHALATION) 0.5 MG/2 ML NEB NEB SCH ×2 (05:45→22:11)
[2020-09-11] MEDS: ACCU-CHEK COMFORT CURVE STRIP VI SCH ×4 (06:13→22:26)
[2020-09-11] MEDS: InsuLIN REG 1unit/0.01ml Soln (100units/ml) SC SCH ×4 (06:13→22:24)
[2020-09-11] MEDS: FUROSEMIDE 40 MG TAB PO SCH ×2 (06:13→17:47)
[2020-09-11] MEDS: SUCRALFATE 1 GM/10 ML ORAL SUSP PO SCH ×4 (06:13→22:24)
--- NOTE | 2020-09-11 06:31 | NUR ---
Pt activity Pt urinated throughout the night using urinal. No bladder distention or difficultly. Pt able to assist in turning and repositioning in bed. Still assisted turning pt q2 hours due to redness on sacrum.
[2020-09-11 09:00] VITALS: BP 145/64
--- NOTE | 2020-09-11 09:11 | NUR ---
PATIENT HAD LARGE BM. PATIENT CLEANED UP. SKIN TO SACRUM BLANCHABLE RED. OPTIFOAM PLACED AND PATIENT TURNED FOR COMFORT. BED IN LOWEST LOCKED POSITION WITH CALL LIGHT WITHIN REACH.
[2020-09-11] MEDS: FAMOTIDINE 20 MG TAB PO SCH (10:00)
[2020-09-11] MEDS: ASCORBIC ACID 500 MG TAB PO SCH ×2 (10:00→22:25)
[2020-09-11] MEDS: CHOLECALCIFEROL (VITD3) 2,000 UNIT CAP PO SCH (10:00)
[2020-09-11] MEDS: ZINC SULFATE 220mg CAP or TAB PO SCH (11:01)
[2020-09-11] MEDS: DexAMETHasone SOD PHOS 10MG/1ML VIAL INJ IV SCH (11:01)
[2020-09-11] MEDS: AMIODARONE HCL 200 MG TAB PO SCH (11:01)
[2020-09-11] MEDS: ASPirin 81 mg TAB PO SCH (11:01)
[2020-09-11] MEDS: POTASSIUM CHL 20 Meq TABLET PO SCH (11:03)
[2020-09-11] MEDS: ENOXAPARIN SOD 40 MG/0.4 ML SYRINGE SC SCH ×2 (11:04→22:25)
[2020-09-11] MEDS: CARVEDILOL 3.125 MG TAB PO SCH ×2 (11:07→22:25)
[2020-09-11] MEDS: ISOSORBIDE DINITRATE 10 MG TAB PO SCH (11:12)
[2020-09-11 13:00] VITALS: BP 109/61
[2020-09-11 17:00] VITALS: BP 129/66
[2020-09-11] MEDS: TAMSULOSIN HYDROCHLORIDE 0.4 MG CAP PO SCH (17:46)
--- NOTE | 2020-09-11 19:00 | NUR ---
NEW OPTIFOAM PLACED ON PATIENT SACRUM. SKIN TO AREA BLANCHABLE RED. WILL CONTINUE TO TURN PATIENT Q2HR.
[2020-09-11 22:00] VITALS: BP 124/54
[2020-09-11] MEDS: ATORVASTATIN 20 MG TAB PO SCH (22:25)
[2020-09-12 05:00] VITALS: BP 120/57
[2020-09-12] MEDS: BUDESONIDE (INHALATION) 0.5 MG/2 ML NEB NEB SCH ×2 (05:50→22:00)
[2020-09-12] MEDS: IPRATROPIUM BROM 0.5 MG/2.5ML INH SOL NEB SCH ×3 (05:50→22:00)
[2020-09-12] MEDS: SUCRALFATE 1 GM/10 ML ORAL SUSP PO SCH ×4 (05:56→22:24)
[2020-09-12] MEDS: FUROSEMIDE 40 MG TAB PO SCH ×2 (05:57→19:06)
[2020-09-12] MEDS: InsuLIN REG 1unit/0.01ml Soln (100units/ml) SC SCH ×4 (06:02→22:17)
[2020-09-12] MEDS: ACCU-CHEK COMFORT CURVE STRIP VI SCH ×4 (06:08→22:11)
--- NOTE | 2020-09-12 06:34 | NUR ---
New IV placed 22g Left Wrist. Total attempts 2. Previous LFA IV 22g removed. Pressure dressing placed. Pt tolerated well. No injury or complaints.
[2020-09-12 09:00] VITALS: BP 134/65
[2020-09-12] MEDS: ASPirin 81 mg TAB PO SCH (09:36)
[2020-09-12] MEDS: ZINC SULFATE 220mg CAP or TAB PO SCH (09:36)
[2020-09-12] MEDS: DexAMETHasone SOD PHOS 10MG/1ML VIAL INJ IV SCH (09:36)
[2020-09-12] MEDS: AMIODARONE HCL 200 MG TAB PO SCH (09:37)
[2020-09-12] MEDS: CARVEDILOL 3.125 MG TAB PO SCH ×2 (09:37→22:25)
[2020-09-12] MEDS: ASCORBIC ACID 500 MG TAB PO SCH ×2 (09:38→22:24)
[2020-09-12] MEDS: POTASSIUM CHL 20 Meq TABLET PO SCH (09:38)
[2020-09-12] MEDS: ISOSORBIDE DINITRATE 10 MG TAB PO SCH (09:38)
[2020-09-12] MEDS: FAMOTIDINE 20 MG TAB PO SCH (09:38)
[2020-09-12] MEDS: CHOLECALCIFEROL (VITD3) 2,000 UNIT CAP PO SCH (09:38)
[2020-09-12] MEDS: ENOXAPARIN SOD 40 MG/0.4 ML SYRINGE SC SCH ×2 (09:39→22:24)
--- NOTE | 2020-09-12 11:15 | NUR ---
at bedside Dr. Parker at bedside informing patient on POC to discharge to a SNF tomorrow on 09/13/20 for rehabilitation. Patient agrees with POC.
[2020-09-12 13:00] VITALS: BP 110/53
[2020-09-12 17:00] VITALS: BP 143/58
[2020-09-12] MEDS: TAMSULOSIN HYDROCHLORIDE 0.4 MG CAP PO SCH (19:05)
[2020-09-12] MEDS: ATORVASTATIN 20 MG TAB PO SCH (22:24)
[2020-09-13 00:57] VITALS: BP 127/57
[2020-09-13] MEDS: BUDESONIDE (INHALATION) 0.5 MG/2 ML NEB NEB SCH (05:52)
[2020-09-13] MEDS: IPRATROPIUM BROM 0.5 MG/2.5ML INH SOL NEB SCH (05:52)
[2020-09-13 06:00] VITALS: BP 125/67
[2020-09-13 06:32] LABS: Potassium 4.1 mmol/L (3.5-5.1)
[2020-09-13 06:38] LABS: BUN/Creatinine Ratio 34.2; Calcium 8.9 mg/dL (8.5-10.1)
[2020-09-13] MEDS: ACCU-CHEK COMFORT CURVE STRIP VI SCH ×3 (07:05→17:05)
[2020-09-13] MEDS: SUCRALFATE 1 GM/10 ML ORAL SUSP PO SCH ×3 (07:05→17:05)
[2020-09-13] MEDS: FUROSEMIDE 40 MG TAB PO SCH ×2 (07:05→18:48)
[2020-09-13] MEDS: InsuLIN REG 1unit/0.01ml Soln (100units/ml) SC SCH ×3 (07:06→18:48)
[2020-09-13 08:40] VITALS: BP 105/40
[2020-09-13] MEDS ORDERED: DexAMETHasone 4 MG TAB PO SCH (10:00)
[2020-09-13] MEDS: CARVEDILOL 3.125 MG TAB PO SCH (11:48)
[2020-09-13] MEDS: ZINC SULFATE 220mg CAP or TAB PO SCH (11:48)
[2020-09-13] MEDS: ISOSORBIDE DINITRATE 10 MG TAB PO SCH (11:48)
[2020-09-13] MEDS: ASPirin 81 mg TAB PO SCH (11:48)
[2020-09-13] MEDS: POTASSIUM CHL 20 Meq TABLET PO SCH (11:48)
[2020-09-13] MEDS: ENOXAPARIN SOD 40 MG/0.4 ML SYRINGE SC SCH (11:48)
[2020-09-13] MEDS: FAMOTIDINE 20 MG TAB PO SCH (11:48)
[2020-09-13] MEDS: CHOLECALCIFEROL (VITD3) 2,000 UNIT CAP PO SCH (11:48)
[2020-09-13] MEDS: ASCORBIC ACID 500 MG TAB PO SCH (11:48)
[2020-09-13 12:16] VITALS: BP 107/71
[2020-09-13] MEDS: AMIODARONE HCL 200 MG TAB PO SCH (12:51)
--- NOTE | 2020-09-13 12:53 | NUR ---
Nutrition Followup Notes WT: 80.8 kg Pt is positive for COVID. Pt is with a CCHO 75g/ 2gm Na diet, with adequate PO of 81% x 4 meals per RN doc Est Energy needs: 7596-4270 (17-20 kcal/kgBW), Est Protein needs: 90-99 gms/day (1.0-1.1 gm/kgBW). Will continue to monitor and reassess prn. LABS: BUN 52 H, Creat 1.52 H, GLU 154 H, Alb 2.6 L GI: Pt had 1 BM today per RN doc BS: 19 low risk. Refer to wound assessment report for further details. PES: 1) Obesity r/t energy intake in excess of energy needs aeb BMI of 32.9 kg/m2 2) Altered nutrition related lab values r/t current medical condition aeb elev RFTs, low GFR, hypocalcemia Comments Will continue to monitor PO intake, skin status, pertinent labs and weight trends. Will f/u in 3-5 days 1) Refer to CDE on DC. 2) Continue current plan of care
--- NOTE | 2020-09-13 13:29 | NUR ---
Patient has orders for discharge to SNF 09/13/2020, Per T[facility] ([facility] requesting patient to be on 4 -5 L n/c to be accepted. Informed Geno HALL. Per Sydnie, ([facility]), requesting patient to have recent Covid test (last test 08/23/2020) Informed Geno HALL. [facility] has accepted patient. Geno HALL notify
--- NOTE | 2020-09-13 13:46 | NUR ---
In house COVID-19 swab collected In house COVID-19 swab collected and taken to lab at this time.
--- NOTE | 2020-09-13 15:52 | NUR ---
Reassessment Patient was accepted to [facility], patient room is [address]. Garnica is the accepting MD. SW faxed to [facility] to [facility] and transportation was arrange. typing pool supervisor time is 6:30 pm 09/13/2020
--- NOTE | 2020-09-13 15:59 | NUR ---
Authorization number for [facility] [id number], Authorization for transportation is [id number]
--- NOTE | 2020-09-13 16:11 | NUR ---
RT NOTE PT IS NOT IN SINGLE PT ROOM. PT GOT MOVED TO A SHARED ROOM. UNABLE TO ADMINISTER AEROSOLIZED MED NEB TX AT THIS TIME. RAFAEL MONTILLA IS AWARE. PT SHOWS NO SIGNS OR SYMPTOMS OF RESPIRATORY DISTRESS AT THIS TIME.
[2020-09-13 17:03] VITALS: BP 132/66
--- NOTE | 2020-09-13 18:45 | NUR ---
DC packet/education provided Discharge packet and education provided to patient at this time. IV line removed with catheter fully intact, pressure dressing applied. MRSA swab collected and sent to lab. Scheduled pickup time 1830, patient awaiting pickup. Will endorse DC to LUIS RN.
[2020-09-13] MEDS: TAMSULOSIN HYDROCHLORIDE 0.4 MG CAP PO SCH (18:48)
--- NOTE | 2020-09-13 19:37 | NUR ---
Handoff report given to [facility] Called [facility] at and spoke with Deya HALL. Handoff report provided at this time. Deya informed patient is still awaiting to be picked up by transportation. RN made aware scheduled pickup time was at 1830.
--- NOTE | 2020-09-13 21:20 | NUR ---
DISCHARGE Discharge instructions given as ordered by day shift RN and reinforced by this RN. All questions and concerns addressed. Patient verbalized understanding. IV removed by day shift RN. Tele box removed and returned to ICU by dayshift RN. Report was given to Deya HALL at 1937 by Geno HALL. Patient transported via stretcher with all personal belongings. Patient's caregiver was notified of patient's transfer by this RN. No distress noted upon time of departure.
== END 2020-09-13 21:20 | DRG 177 ==
LOC: ER 13:18 → EDBD 13:18 → TELE 13:19 → TELE-WESTW 21:07 → TELE-EAST 08-23 14:04 → DOU IN ICU 08-28 12:12 → TELE-EAST 09-06 06:46 → EAST 09-13 10:45
PROVIDERS: ADMIT Hospitalist; ATTEND Internal Medicine
PROC: XW033E5 Introduction of Remdesivir Anti-infective into Peripheral Vein, Percutaneous Approach, New Technology Group 5 (ICD-10-PCS; 2020-08-25)
PROC: XW13325 Transfusion of Convalescent Plasma (Nonautologous) into Peripheral Vein, Percutaneous Approach, New Technology Group 5 (ICD-10-PCS; principal; 2020-08-26)
PROC: 5A0955A Assistance with Respiratory Ventilation, Greater than 96 Consecutive Hours, High Flow/Velocity Cannula (ICD-10-PCS; 2020-08-28)
DX: U07.1 COVID-19 (principal); J12.89 Other viral pneumonia; J96.21 Acute and chronic respiratory failure with hypoxia; I50.41 Acute combined systolic (congestive) and diastolic (congestive) heart failure; N17.0 Acute kidney failure with tubular necrosis; J44.1 Chronic obstructive pulmonary disease with (acute) exacerbation; I13.0 Hypertensive heart and chronic kidney disease with heart failure and stage 1 through stage 4 chronic kidney disease, or unspecified chronic kidney disease; J44.0 Chronic obstructive pulmonary disease with (acute) lower respiratory infection; E86.0 Dehydration; N18.30 Chronic kidney disease, stage 3 unspecified; K52.9 Noninfective gastroenteritis and colitis, unspecified; E66.01 Morbid (severe) obesity due to excess calories; N40.0 Benign prostatic hyperplasia without lower urinary tract symptoms; I48.91 Unspecified atrial fibrillation; K21.9 Gastro-esophageal reflux disease without esophagitis; E11.40 Type 2 diabetes mellitus with diabetic neuropathy, unspecified; E78.5 Hyperlipidemia, unspecified; K29.00 Acute gastritis without bleeding; E11.22 Type 2 diabetes mellitus with diabetic chronic kidney disease; I25.10 Atherosclerotic heart disease of native coronary artery without angina pectoris; M19.90 Unspecified osteoarthritis, unspecified site; Z79.51 Long term (current) use of inhaled steroids; Z79.899 Other long term (current) drug therapy; Z83.3 Family history of diabetes mellitus; Z87.11 Personal history of peptic ulcer disease; Z90.49 Acquired absence of other specified parts of digestive tract; Z68.29 Body mass index [BMI] 29.0-29.9, adult
CPT/HCPCS: 36415; 36600; 71045; 76705; 80048; 80053; 80061; 80307; 81001; 82728; 82805; 82962; 83036; 83615; 83690; 83880; 84484; 85007; 85025; 85027; 85379; 85610; 85730; 86141; 86677; 86803; 86850; 86900; 86901; 87040; 87081; 87086; 87340; 93306; 93970; 94640; 97110; 97116; 97530; C9113; G0378; J0696; J1100; J1815; J2405; J3490

== ENCOUNTER 2023-03-03 10:04 | Inpatient (IN) | payer OTHER, MEDICAID ==
[~2023-03-03] VITALS: Ht 165.1 cm; Wt 84.0 kg
[~2023-03-03 10:04] MED LIST changes: -ALBU0.084 NEB; +ALBUAER3 IN; -ASPI-394 PO; +ASPI-498 PO; -CARV12.544 PO; +CARV3.1240 PO; +FLUT1AER6 IN; -FLUT250M2 IN; -FLUT250M2 INH; +GEMF-19 PO; -GEMF600T7 PO; +ISOS1TAB37 PO; -ISOS20TA49 PO; -LISI2.5T47 PO; -METF-489 PO; +METF-869 PO; +OMEP-260 PO; -OMEP20TA44 PO; -TAMS0.4C36 PO
[2023-03-03] MEDS ORDERED: cefTRIAXone 1GM/50ML D5W 50 ML IV ONE (10:45)
[2023-03-03] MEDS ORDERED: ACETAMINOPHEN 500 MG TAB PO ONE (10:45)
[2023-03-03 11:04] LABS: Basophils # (auto) 0.1 10 ^3/uL (0-0.2); Basophils % (auto) 0.6 % (0.0-2.0); Eosinophils # (auto) 0 10 ^3/uL (0-0.8); Eosinophils % (auto) 0.3 % (0.0-7.0); Hematocrit 37.2 % (41.0-53.0); Hemoglobin 12.4 g/dL (13.5-17.5); Lymphocytes # (auto) 1.3 10 ^3/uL (0.4-5.4); Lymphocytes % (auto) 11.1 % (10.0-50.0); Mean Corpuscular Hemoglobin 28.3 pg (28.0-32.0); Mean Corpuscular Hgb Conc. 33.3 g/dL (32.0-36.0); Mean Corpuscular Volume 85.1 fL (80.0-100.0); Monocytes # (auto) 1.1 10 ^3/uL (0-1.3); Monocytes % (auto) 10.1 % (0.0-12.0); Neutrophils # (auto) 8.9 10 ^3/uL (1.6-8.6); Neutrophils % (auto) 77.9 % (37.0-80.0); Red Blood Cells 4.37 10^6/uL (4.5-5.90); White Blood Cell 11.4 10^3/uL (4.4-10.8)
[2023-03-03 11:07] LABS: Red Cell Distribution Width 22.3 % (11.8-14.3)
[2023-03-03 11:40] LABS: Urine Bacteria NONE SEEN /hpf (None Seen); Urine Blood Negative /uL (Negative); Urine Specific Gravity 1.014 (1.001-1.035); Urine WBC 1 /hpf (0 - 3)
[2023-03-03] MEDS ORDERED: FUROSEMIDE 40 MG/4 ML VIAL IV ONE (12:15)
[2023-03-03 13:11] LABS: Albumin 3.6 g/dL (3.4-5.0); Calcium 8.8 mg/dL (8.5-10.1); Potassium 4.7 mmol/L (3.5-5.1)
[2023-03-03 13:15] LABS: Bilirubin, Total 1.2 mg/dL (0.2-1.0); Total Protein 7.7 g/dL (6.4-8.2)
[2023-03-03] MEDS ORDERED: DEXTROSE (50%) 50ML SYRG IV PRN (14:00)
[2023-03-03] MEDS ORDERED: NITROGLYCERIN 0.4 MG SL TAB SL PRN (14:00)
[2023-03-03] MEDS ORDERED: ALBUTEROL SULF 2.5 MG/0.5ML(0.5%) NEB SOLN NEB PRN (14:00)
[2023-03-03] MEDS ORDERED: MORPHINE SULFATE INJ 2 MG/ml SYRG IV PRN (14:00)
[2023-03-03] MEDS ORDERED: PANTOPRAZOLE 40 MG/10 ML VIAL INJ IV ONE (14:00)
[2023-03-03 15:27] LABS: Cholesterol 146 mg/dL (< 200)
[2023-03-03 15:31] LABS: HDL Cholesterol 19 mg/dL (40-59); LDL Cholesterol 101 mg/dL (< 100); Triglycerides 137 mg/dL (< 150)
[2023-03-03] MEDS: ALBUTEROL SULF 2.5 MG/0.5ML(0.5%) NEB SOLN NEB SCH ×3 (16:35→23:21)
[2023-03-03] MEDS: IPRATROPIUM BROM 0.5 MG/2.5ML INH SOL NEB SCH ×3 (16:36→23:21)
[2023-03-03] MEDS ORDERED: SODIUM CHLORIDE 0.9% 500 ML IV ONE (16:45)
[2023-03-03] MEDS: ACCU-CHEK COMFORT CURVE STRIP VI SCH ×2 (17:22→23:03)
[2023-03-03] MEDS: InsuLIN REG 1unit/0.01ml Soln (100units/ml) SC SCH ×2 (17:22→23:03)
[2023-03-03] MEDS: ACETAMINOPHEN 325 MG TAB PO PRN (20:49)
[2023-03-03] MEDS: CARVEDILOL 3.125 MG TAB PO SCH (23:15)
[2023-03-04 02:16] VITALS: BP 124/85
[2023-03-04] MEDS: ALBUTEROL SULF 2.5 MG/0.5ML(0.5%) NEB SOLN NEB SCH ×6 (02:29→22:11)
[2023-03-04] MEDS: IPRATROPIUM BROM 0.5 MG/2.5ML INH SOL NEB SCH ×6 (02:29→22:11)
[2023-03-04 06:09] LABS: Basophils # (auto) 0 10 ^3/uL (0-0.2); Basophils % (auto) 0.3 % (0.0-2.0); Eosinophils # (auto) 0 10 ^3/uL (0-0.8); Eosinophils % (auto) 0.4 % (0.0-7.0); Hematocrit 38.4 % (41.0-53.0); Hemoglobin 12.5 g/dL (13.5-17.5); Lymphocytes # (auto) 1.4 10 ^3/uL (0.4-5.4); Lymphocytes % (auto) 12.7 % (10.0-50.0); Mean Corpuscular Hgb Conc. 32.6 g/dL (32.0-36.0); Monocytes # (auto) 1.2 10 ^3/uL (0-1.3); Neutrophils # (auto) 8.4 10 ^3/uL (1.6-8.6); Neutrophils % (auto) 75.6 % (37.0-80.0); Nucleated Red Blood Cells % 0.1 %; Red Blood Cells 4.46 10^6/uL (4.5-5.90); White Blood Cell 11.1 10^3/uL (4.4-10.8)
[2023-03-04 06:11] LABS: Red Cell Distribution Width 22.4 % (11.8-14.3)
[2023-03-04 06:27] LABS: Potassium 4.1 mmol/L (3.5-5.1)
[2023-03-04 06:37] LABS: Albumin 3.2 g/dL (3.4-5.0); BUN/Creatinine Ratio 21.1 (10.0-20.0); Bilirubin, Total 1.4 mg/dL (0.2-1.0); Calcium 8.8 mg/dL (8.5-10.1)
[2023-03-04] MEDS: InsuLIN REG 1unit/0.01ml Soln (100units/ml) SC SCH ×4 (06:38→21:45)
[2023-03-04] MEDS: ACCU-CHEK COMFORT CURVE STRIP VI SCH ×4 (06:38→21:46)
[2023-03-04] MEDS ORDERED: cefTRIAXone 1GM/50ML D5W 50 ML IV SCH (09:00)
[2023-03-04] MEDS ORDERED: ENOXAPARIN SOD 40 MG/0.4 ML SYRINGE SC SCH (10:00)
[2023-03-04] MEDS ORDERED: AZITHROMYCIN 500MG/ 250ML 250 ML IV SCH (10:00)
[2023-03-04] MEDS ORDERED: ISOSORBIDE DINITRATE 10 MG TAB PO SCH (10:00)
[2023-03-04] MEDS: PANTOPRAZOLE 40 MG/10 ML VIAL INJ IV SCH (10:17)
[2023-03-04] MEDS: ASPirin-EC 81 mg tab PO SCH (10:19)
[2023-03-04] MEDS: CARVEDILOL 3.125 MG TAB PO SCH (10:19)
[2023-03-04] MEDS: CHOLECALCIFEROL (VITD3) 2,000 UNIT CAP/TAB PO SCH (10:19)
[2023-03-04] MEDS: NOREPINEPHRINE 8 MG/250ML KIT 250 ML IV SCH (14:15)
[2023-03-04] MEDS ORDERED: SODIUM CHLORIDE 0.9% 500 ML IV ONE (14:15)
[2023-03-04] MEDS: LINEZOLID 600MG/300ML 300 ML IV SCH (21:45)
[2023-03-04] MEDS: ENOXAPARIN SOD 80 MG/0.8ML SYRINGE SC SCH (21:47)
[2023-03-04] MEDS: CEFEPIME 2 GM in SODIUM CHL 0.9% 50 ML IV SCH (23:45)
[2023-03-05] MEDS: IPRATROPIUM BROM 0.5 MG/2.5ML INH SOL NEB SCH ×6 (02:50→22:28)
[2023-03-05] MEDS: ALBUTEROL SULF 2.5 MG/0.5ML(0.5%) NEB SOLN NEB SCH ×6 (02:50→22:28)
[2023-03-05 06:05] LABS: Basophils # (auto) 0 10 ^3/uL (0-0.2); Basophils % (auto) 0.3 % (0.0-2.0); Eosinophils # (auto) 0.1 10 ^3/uL (0-0.8); Eosinophils % (auto) 0.8 % (0.0-7.0); Hemoglobin 11.5 g/dL (13.5-17.5); Lymphocytes # (auto) 1.3 10 ^3/uL (0.4-5.4); Lymphocytes % (auto) 15.5 % (10.0-50.0); Mean Corpuscular Hemoglobin 28.6 pg (28.0-32.0); Mean Corpuscular Hgb Conc. 32.9 g/dL (32.0-36.0); Mean Corpuscular Volume 86.7 fL (80.0-100.0); Monocytes # (auto) 1.3 10 ^3/uL (0-1.3); Monocytes % (auto) 15.5 % (0.0-12.0); Neutrophils # (auto) 5.5 10 ^3/uL (1.6-8.6); Neutrophils % (auto) 67.9 % (37.0-80.0); Nucleated Red Blood Cells % 0.1 %; Red Blood Cells 4.04 10^6/uL (4.5-5.90); White Blood Cell 8.1 10^3/uL (4.4-10.8)
[2023-03-05] MEDS: ACCU-CHEK COMFORT CURVE STRIP VI SCH ×4 (06:19→21:15)
[2023-03-05] MEDS: InsuLIN REG 1unit/0.01ml Soln (100units/ml) SC SCH ×4 (06:19→21:15)
[2023-03-05 06:20] LABS: Potassium 4.3 mmol/L (3.5-5.1)
[2023-03-05 06:22] LABS: Red Cell Distribution Width 22.1 % (11.8-14.3)
[2023-03-05 06:28] LABS: Albumin 2.9 g/dL (3.4-5.0); BUN/Creatinine Ratio 20.9 (10.0-20.0); Bilirubin, Total 1.2 mg/dL (0.2-1.0); Calcium 8.6 mg/dL (8.5-10.1); Total Protein 7.5 g/dL (6.4-8.2)
[2023-03-05] MEDS: ENOXAPARIN SOD 80 MG/0.8ML SYRINGE SC SCH ×2 (10:33→22:59)
[2023-03-05] MEDS: ASPirin-EC 81 mg tab PO SCH (10:33)
[2023-03-05] MEDS: CHOLECALCIFEROL (VITD3) 2,000 UNIT CAP/TAB PO SCH (10:33)
[2023-03-05] MEDS: CEFEPIME 2 GM in SODIUM CHL 0.9% 50 ML IV SCH ×2 (10:33→22:59)
[2023-03-05] MEDS: PANTOPRAZOLE 40 MG/10 ML VIAL INJ IV SCH (10:33)
[2023-03-05] MEDS: methylPREDNISolone SOD SUCC 40 MG/ML VL IV SCH (10:34)
[2023-03-05] MEDS: LINEZOLID 600MG/300ML 300 ML IV SCH ×2 (12:40→21:01)
[2023-03-05] MEDS: ACETAMINOPHEN 325 MG TAB PO PRN (13:02)
[2023-03-05] MEDS: NOREPINEPHRINE 8 MG/250ML KIT 250 ML IV SCH (14:15)
[2023-03-05] MEDS ORDERED: FUROSEMIDE 20 MG TAB PO ONE (16:00)
[2023-03-05 16:30] VITALS: BP 132/70
[2023-03-05 17:50] VITALS: BP 132/70
[2023-03-05] MEDS: METOPROLOL TARTRATE 25 MG TAB PO SCH (21:24)
[2023-03-05 22:00] VITALS: BP 117/56
[2023-03-06] MEDS: ALBUTEROL SULF 2.5 MG/0.5ML(0.5%) NEB SOLN NEB SCH ×6 (02:28→21:56)
[2023-03-06] MEDS: IPRATROPIUM BROM 0.5 MG/2.5ML INH SOL NEB SCH ×6 (02:28→21:56)
[2023-03-06 05:00] VITALS: BP 110/59
[2023-03-06] MEDS: InsuLIN REG 1unit/0.01ml Soln (100units/ml) SC SCH ×4 (06:03→22:14)
[2023-03-06] MEDS: ACCU-CHEK COMFORT CURVE STRIP VI SCH ×4 (06:03→22:12)
[2023-03-06 06:11] LABS: Basophils # (auto) 0 10 ^3/uL (0-0.2); Basophils % (auto) 0.2 % (0.0-2.0); Eosinophils # (auto) 0.1 10 ^3/uL (0-0.8); Eosinophils % (auto) 1.4 % (0.0-7.0); Hematocrit 33.1 % (41.0-53.0); Hemoglobin 11.2 g/dL (13.5-17.5); Lymphocytes # (auto) 0.8 10 ^3/uL (0.4-5.4); Lymphocytes % (auto) 11.7 % (10.0-50.0); Mean Corpuscular Hgb Conc. 33.8 g/dL (32.0-36.0); Mean Corpuscular Volume 85.8 fL (80.0-100.0); Monocytes # (auto) 0.9 10 ^3/uL (0-1.3); Monocytes % (auto) 12.4 % (0.0-12.0); Neutrophils # (auto) 5.2 10 ^3/uL (1.6-8.6); Neutrophils % (auto) 74.3 % (37.0-80.0); Nucleated Red Blood Cells % 0.1 %; Red Blood Cells 3.86 10^6/uL (4.5-5.90)
[2023-03-06 06:28] LABS: BUN/Creatinine Ratio 16.2 (10.0-20.0); Calcium 8.9 mg/dL (8.5-10.1); Potassium 3.9 mmol/L (3.5-5.1)
[2023-03-06 09:00] VITALS: BP 110/52
[2023-03-06] MEDS: methylPREDNISolone SOD SUCC 40 MG/ML VL IV SCH (09:15)
[2023-03-06] MEDS: ENOXAPARIN SOD 80 MG/0.8ML SYRINGE SC SCH ×2 (09:16→22:15)
[2023-03-06] MEDS: ASPirin-EC 81 mg tab PO SCH (09:16)
[2023-03-06] MEDS: LINEZOLID 600MG/300ML 300 ML IV SCH ×2 (09:16→21:52)
[2023-03-06] MEDS: CHOLECALCIFEROL (VITD3) 2,000 UNIT CAP/TAB PO SCH (09:16)
[2023-03-06] MEDS: PANTOPRAZOLE 40 MG/10 ML VIAL INJ IV SCH (09:16)
[2023-03-06] MEDS: METOPROLOL TARTRATE 25 MG TAB PO SCH ×2 (09:17→21:57)
[2023-03-06] MEDS: CEFEPIME 2 GM in SODIUM CHL 0.9% 50 ML IV SCH ×2 (11:27→22:12)
[2023-03-06] MEDS ORDERED: FUROSEMIDE 20 MG TAB PO ONE (11:45)
[2023-03-06 13:00] VITALS: BP 106/63
[2023-03-06 17:00] VITALS: BP 108/54
[2023-03-06] MEDS: predniSONE 20 MG TAB PO SCH (17:10)
[2023-03-06] MEDS: ACETYLCYSTEINE 10 %(100MG/ML) SOL 4ML NEB SCH ×2 (18:12→23:36)
[2023-03-06 22:00] VITALS: BP 139/58
[2023-03-06] MEDS: DOCUSATE SOD 100 MG CAP PO SCH (22:11)
[2023-03-07 00:41] VITALS: BP 139/58
[2023-03-07] MEDS: IPRATROPIUM BROM 0.5 MG/2.5ML INH SOL NEB SCH ×6 (02:06→22:17)
[2023-03-07] MEDS: ALBUTEROL SULF 2.5 MG/0.5ML(0.5%) NEB SOLN NEB SCH ×6 (02:06→22:17)
[2023-03-07 05:00] VITALS: BP 126/60
[2023-03-07] MEDS: ACETYLCYSTEINE 10 %(100MG/ML) SOL 4ML NEB SCH ×2 (05:43→14:08)
[2023-03-07] MEDS: InsuLIN REG 1unit/0.01ml Soln (100units/ml) SC SCH ×4 (06:17→21:13)
[2023-03-07] MEDS: ACCU-CHEK COMFORT CURVE STRIP VI SCH ×4 (06:17→21:12)
[2023-03-07 06:59] LABS: Potassium 4.1 mmol/L (3.5-5.1)
[2023-03-07 07:05] LABS: Albumin 2.8 g/dL (3.4-5.0); BUN/Creatinine Ratio 17.1 (10.0-20.0); Bilirubin, Total 0.7 mg/dL (0.2-1.0); Calcium 8.8 mg/dL (8.5-10.1); Total Protein 7.6 g/dL (6.4-8.2)
[2023-03-07 08:48] VITALS: BP 129/64
[2023-03-07] MEDS: PANTOPRAZOLE 40 MG/10 ML VIAL INJ IV SCH (08:57)
[2023-03-07] MEDS: DOCUSATE SOD 100 MG CAP PO SCH ×2 (08:57→21:10)
[2023-03-07] MEDS: CHOLECALCIFEROL (VITD3) 2,000 UNIT CAP/TAB PO SCH (08:57)
[2023-03-07] MEDS: ENOXAPARIN SOD 80 MG/0.8ML SYRINGE SC SCH ×2 (08:57→21:12)
[2023-03-07] MEDS: LINEZOLID 600MG/300ML 300 ML IV SCH ×2 (08:57→21:06)
[2023-03-07] MEDS: predniSONE 20 MG TAB PO SCH (08:57)
[2023-03-07] MEDS: ASPirin-EC 81 mg tab PO SCH (08:57)
[2023-03-07] MEDS: METOPROLOL TARTRATE 25 MG TAB PO SCH ×2 (08:58→21:11)
[2023-03-07] MEDS: CEFEPIME 2 GM in SODIUM CHL 0.9% 50 ML IV SCH ×2 (11:47→22:50)
[2023-03-07 13:00] VITALS: BP 120/48
[2023-03-07] MEDS ORDERED: FUROSEMIDE 20 MG TAB PO ONE (13:15)
[2023-03-07 16:46] VITALS: BP 127/69
[2023-03-07 22:00] VITALS: BP 135/67
[2023-03-08] MEDS: IPRATROPIUM BROM 0.5 MG/2.5ML INH SOL NEB SCH ×5 (02:17→18:28)
[2023-03-08] MEDS: ALBUTEROL SULF 2.5 MG/0.5ML(0.5%) NEB SOLN NEB SCH ×5 (02:17→18:28)
[2023-03-08 05:00] VITALS: BP 132/81
[2023-03-08 06:03] LABS: BUN/Creatinine Ratio 20.8 (10.0-20.0); Calcium 9.2 mg/dL (8.5-10.1)
[2023-03-08] MEDS: InsuLIN REG 1unit/0.01ml Soln (100units/ml) SC SCH ×3 (06:22→17:57)
[2023-03-08] MEDS: ACCU-CHEK COMFORT CURVE STRIP VI SCH ×3 (06:22→17:56)
[2023-03-08 06:25] LABS: Hematocrit 33.6 % (41.0-53.0); Hemoglobin 11.3 g/dL (13.5-17.5); Mean Corpuscular Hemoglobin 29.1 pg (28.0-32.0); Mean Corpuscular Hgb Conc. 33.6 g/dL (32.0-36.0); Mean Corpuscular Volume 86.5 fL (80.0-100.0); Red Blood Cells 3.88 10^6/uL (4.5-5.90); White Blood Cell 6.9 10^3/uL (4.4-10.8)
[2023-03-08 06:32] LABS: Red Cell Distribution Width 22.4 % (11.8-14.3)
[2023-03-08 06:33] LABS: Basophils % (manual) 0 (0.0-2.0); Blast Cells 0; Eosinophils % (manual) 0 (0-7); Metamyelocytes % 0; Myelocytes % 0; Promyelocytes % 0; Reactive Lymphocytes 0
[2023-03-08] MEDS ORDERED: LEVO500T31 PO (08:03)
[2023-03-08] MEDS ORDERED: PRED20TA2 PO (08:03)
[2023-03-08 08:29] LABS: Band Neutrophils % (manual) 2; Lymphocytes % (manual) 21 (10.0-50.0); Monocytes % (manual) 11 (0-12)
[2023-03-08 08:52] VITALS: BP 132/71
[2023-03-08] MEDS: DOCUSATE SOD 100 MG CAP PO SCH (09:38)
[2023-03-08] MEDS: predniSONE 20 MG TAB PO SCH (09:38)
[2023-03-08] MEDS: ENOXAPARIN SOD 80 MG/0.8ML SYRINGE SC SCH (09:38)
[2023-03-08] MEDS: LINEZOLID 600MG/300ML 300 ML IV SCH (09:38)
[2023-03-08] MEDS: PANTOPRAZOLE 40 MG/10 ML VIAL INJ IV SCH (09:38)
[2023-03-08] MEDS: CHOLECALCIFEROL (VITD3) 2,000 UNIT CAP/TAB PO SCH (09:38)
[2023-03-08] MEDS: ASPirin-EC 81 mg tab PO SCH (09:38)
[2023-03-08] MEDS: METOPROLOL TARTRATE 25 MG TAB PO SCH (09:39)
[2023-03-08] MEDS: CEFEPIME 2 GM in SODIUM CHL 0.9% 50 ML IV SCH (12:32)
[2023-03-08 12:47] VITALS: BP 128/71
[2023-03-08 15:58] VITALS: BP 136/56
[2023-03-08 17:08] VITALS: BP 127/69
== END 2023-03-08 20:50 | disposition home health service (06) | DRG 871 ==
LOC: ER 10:04 → TELE 13:56 → TELE-WESTW 03-05 17:58
PROVIDERS: ADMIT Nurse Practitioner Family; ATTEND Nurse Practitioner Acute Care
PROC: 5A0935A Assistance with Respiratory Ventilation, Less than 24 Consecutive Hours, High Flow/Velocity Cannula (ICD-10-PCS; principal; 2023-03-04)
DX: A41.9 Sepsis, unspecified organism (principal); I50.23 Acute on chronic systolic (congestive) heart failure; R65.21 Severe sepsis with septic shock; J96.21 Acute and chronic respiratory failure with hypoxia; J15.6 Pneumonia due to other Gram-negative bacteria; I13.0 Hypertensive heart and chronic kidney disease with heart failure and stage 1 through stage 4 chronic kidney disease, or unspecified chronic kidney disease; J44.0 Chronic obstructive pulmonary disease with (acute) lower respiratory infection; I48.20 Chronic atrial fibrillation, unspecified; Z20.822 Contact with and (suspected) exposure to COVID-19; I25.10 Atherosclerotic heart disease of native coronary artery without angina pectoris; N18.32 Chronic kidney disease, stage 3b; E78.5 Hyperlipidemia, unspecified; E11.22 Type 2 diabetes mellitus with diabetic chronic kidney disease; K21.9 Gastro-esophageal reflux disease without esophagitis; Z90.49 Acquired absence of other specified parts of digestive tract; Z83.3 Family history of diabetes mellitus
CPT/HCPCS: 36415; 36600; 71045; 80048; 80053; 80061; 81001; 82805; 82962; 83036; 83605; 83735; 83880; 84443; 84484; 85007; 85025; 85027; 85379; 87040; 87426; 87804; 93005; 93306; 94640; 96361; 96365; 96375; 97110; 97116; 97163; 97530; C9113; G0378; J0696; J1815

== ENCOUNTER 2023-03-20 16:02 | Inpatient (IN) | payer OTHER, MEDICAID ==
[~2023-03-20] VITALS: Ht 167.6 cm; Wt 101.1 kg
[~2023-03-20 16:02] MED LIST changes: +AMIO200T33 PO; +APIX2.5T PO; -ASPI-498 PO; +FLUO10TA18 PO; +FLUT1AER3 INH; +FUR20T PO; -GEMF-19 PO; +GEMF-66 PO; +LOS25T PO; -OMEP-260 PO; +OMEP1CAP70 PO
[2023-03-20 17:49] LABS: Albumin 3.3 g/dL (3.4-5.0); Calcium 8.6 mg/dL (8.5-10.1); Magnesium 2.7 mg/dL (1.6-2.6); Potassium 5.5 mmol/L (3.5-5.1)
[2023-03-20 17:53] LABS: BUN/Creatinine Ratio 21.3 (10.0-20.0); Bilirubin, Total 0.8 mg/dL (0.2-1.0); Total Protein 6.8 g/dL (6.4-8.2)
[2023-03-20] MEDS ORDERED: SODIUM ZIRCONIUM CYCL 10 GM PAK PO ONE (18:30)
[2023-03-20] MEDS ORDERED: ALBUTEROL SULF 2.5 MG/0.5ML(0.5%) NEB SOLN NEB ONE (18:30)
[2023-03-20] MEDS ORDERED: DexAMETHasone SOD PHOS 10MG/1ML VIAL INJ IV ONE (18:30)
[2023-03-20] MEDS ORDERED: InsuLIN REG 1unit/0.01ml Soln (100units/ml) IV ONE (18:30)
[2023-03-20] MEDS ORDERED: IPRATROPIUM BROM 0.5 MG/2.5ML INH SOL NEB ONE (18:30)
[2023-03-20] MEDS ORDERED: DEXTROSE (50%) 50ML SYRG IV ONE (18:30)
[2023-03-20] MEDS ORDERED: CALCIUM GLUC 1,000mg/50ml-NS 50 ML IV ONE (18:30)
[2023-03-20 18:31] LABS: Hemoglobin 11.6 g/dL (13.5-17.5); Mean Corpuscular Hemoglobin 29.1 pg (28.0-32.0); Mean Corpuscular Hgb Conc. 32.2 g/dL (32.0-36.0); Mean Corpuscular Volume 90.3 fL (80.0-100.0); Red Blood Cells 3.98 10^6/uL (4.5-5.90); White Blood Cell 12.6 10^3/uL (4.4-10.8)
[2023-03-20 18:32] LABS: Red Cell Distribution Width 23.3 % (11.8-14.3)
[2023-03-20 18:34] LABS: Basophils % (manual) 0 (0.0-2.0); Blast Cells 0; Metamyelocytes % 0; Myelocytes % 0; Promyelocytes % 0; Reactive Lymphocytes 0
[2023-03-20 19:18] LABS: Band Neutrophils % (manual) 5; Eosinophils % (manual) 1 (0-7); Lymphocytes % (manual) 10 (10.0-50.0); Monocytes % (manual) 14 (0-12)
[2023-03-20] MEDS ORDERED: FUROSEMIDE 40 MG/4 ML VIAL IV ONE (21:00)
[2023-03-20] MEDS ORDERED: MORPHINE SULFATE INJ 2 MG/ml SYRG IV PRN (21:00)
[2023-03-20] MEDS ORDERED: ALBUMIN 25% 50 ML IV ONE (21:00)
[2023-03-20] MEDS ORDERED: IPRATROPIUM BROM 0.5 MG/2.5ML INH SOL NEB PRN (21:00)
[2023-03-20] MEDS ORDERED: ALBUTEROL SULF 2.5 MG/0.5ML(0.5%) NEB SOLN NEB PRN (21:00)
[2023-03-20] MEDS ORDERED: DEXTROSE (50%) 50ML SYRG IV PRN (21:00)
[2023-03-20] MEDS ORDERED: ONDANSETRON HCL 4 MG/2 ML VIAL IV PRN (21:00)
[2023-03-20] MEDS ORDERED: NITROGLYCERIN 0.4 MG SL TAB SL PRN (21:00)
[2023-03-20] MEDS ORDERED: ACETAMINOPHEN 325 MG TAB PO PRN (21:00)
[2023-03-20 21:12] VITALS: BP 97/53
[2023-03-20] MEDS: ACCU-CHEK COMFORT CURVE STRIP VI SCH (22:00)
[2023-03-20] MEDS ORDERED: DEXTROSE 10% 250 ML Bag IV ONE (22:00)
[2023-03-20] MEDS: InsuLIN REG 1unit/0.01ml Soln (100units/ml) SC SCH (22:00)
[2023-03-21] MEDS: APIXABAN 2.5 MG TAB PO SCH ×3 (01:29→23:22)
[2023-03-21] MEDS ORDERED: FUROSEMIDE 20 MG/2 ML VIAL IV SCH (06:00)
[2023-03-21 07:05] LABS: Basophils # (auto) 0 10 ^3/uL (0-0.2); Basophils % (auto) 0.1 % (0.0-2.0); Eosinophils # (auto) 0 10 ^3/uL (0-0.8); Hematocrit 32.6 % (41.0-53.0); Hemoglobin 10.9 g/dL (13.5-17.5); Lymphocytes # (auto) 0.8 10 ^3/uL (0.4-5.4); Lymphocytes % (auto) 10.5 % (10.0-50.0); Mean Corpuscular Hemoglobin 29.5 pg (28.0-32.0); Mean Corpuscular Hgb Conc. 33.3 g/dL (32.0-36.0); Mean Corpuscular Volume 88.6 fL (80.0-100.0); Monocytes # (auto) 0.1 10 ^3/uL (0-1.3); Monocytes % (auto) 1.4 % (0.0-12.0); Neutrophils # (auto) 6.8 10 ^3/uL (1.6-8.6); Nucleated Red Blood Cells % 0.1 %; Red Blood Cells 3.69 10^6/uL (4.5-5.90); Red Cell Distribution Width 22.6 % (11.8-14.3); White Blood Cell 7.7 10^3/uL (4.4-10.8)
[2023-03-21 07:07] LABS: Albumin 3.3 g/dL (3.4-5.0); Potassium 5.2 mmol/L (3.5-5.1)
[2023-03-21 07:11] LABS: BUN/Creatinine Ratio 24.9 (10.0-20.0); Bilirubin, Total 1.1 mg/dL (0.2-1.0)
[2023-03-21] MEDS: ACCU-CHEK COMFORT CURVE STRIP VI SCH ×4 (07:59→23:15)
[2023-03-21] MEDS: InsuLIN REG 1unit/0.01ml Soln (100units/ml) SC SCH ×4 (08:00→23:28)
[2023-03-21] MEDS ORDERED: LOSARTAN POTASSIUM 25 MG TAB PO SCH (10:00)
[2023-03-21] MEDS ORDERED: FUROSEMIDE 20 MG TAB PO SCH (10:00)
[2023-03-21] MEDS ORDERED: CARVEDILOL 3.125 MG TAB PO SCH (10:00)
[2023-03-21] MEDS ORDERED: ISOSORBIDE MONONITRATE ER 60 MG TAB PO SCH (10:00)
[2023-03-21] MEDS: AMIODARONE HCL 200 MG TAB PO SCH (10:42)
[2023-03-21] MEDS ORDERED: FUROSEMIDE 40 MG/4 ML VIAL IV ONE (12:30)
[2023-03-21 15:02] LABS: Urine Bacteria FEW /hpf (None Seen); Urine Blood Negative /uL (Negative); Urine WBC 1 /hpf (0 - 3)
[2023-03-21] MEDS ORDERED: FUROSEMIDE 40 MG/4 ML VIAL IV SCH (18:00)
[2023-03-21 22:58] VITALS: BP 122/53
[2023-03-22 04:57] VITALS: BP 119/69
[2023-03-22 06:15] LABS: Basophils # (auto) 0 10 ^3/uL (0-0.2); Basophils % (auto) 0.2 % (0.0-2.0); Eosinophils # (auto) 0 10 ^3/uL (0-0.8); Hematocrit 34.6 % (41.0-53.0); Hemoglobin 11.5 g/dL (13.5-17.5); Lymphocytes % (auto) 8.2 % (10.0-50.0); Mean Corpuscular Hemoglobin 29.2 pg (28.0-32.0); Mean Corpuscular Hgb Conc. 33.2 g/dL (32.0-36.0); Mean Corpuscular Volume 87.9 fL (80.0-100.0); Monocytes % (auto) 8.2 % (0.0-12.0); Neutrophils # (auto) 10.4 10 ^3/uL (1.6-8.6); Neutrophils % (auto) 83.4 % (37.0-80.0); Red Blood Cells 3.94 10^6/uL (4.5-5.90); Red Cell Distribution Width 22.6 % (11.8-14.3); White Blood Cell 12.5 10^3/uL (4.4-10.8)
[2023-03-22] MEDS: ACCU-CHEK COMFORT CURVE STRIP VI SCH ×4 (06:18→21:19)
[2023-03-22] MEDS: InsuLIN REG 1unit/0.01ml Soln (100units/ml) SC SCH ×4 (06:20→21:26)
[2023-03-22 06:26] LABS: BUN/Creatinine Ratio 36.1 (10.0-20.0); Calcium 9.1 mg/dL (8.5-10.1)
[2023-03-22 09:00] VITALS: BP 107/50
[2023-03-22] MEDS: APIXABAN 2.5 MG TAB PO SCH ×2 (10:23→21:18)
[2023-03-22] MEDS: AMIODARONE HCL 200 MG TAB PO SCH (10:23)
[2023-03-22] MEDS: FUROSEMIDE 40 MG TAB PO SCH (10:23)
[2023-03-22 12:39] VITALS: BP 121/58
[2023-03-22 17:00] VITALS: BP 97/47
[2023-03-22 23:24] VITALS: BP 117/48
[2023-03-23 05:00] VITALS: BP 126/64
[2023-03-23 06:00] LABS: Basophils # (auto) 0 10 ^3/uL (0-0.2); Basophils % (auto) 0.3 % (0.0-2.0); Eosinophils # (auto) 0.1 10 ^3/uL (0-0.8); Eosinophils % (auto) 1.2 % (0.0-7.0); Hematocrit 38.6 % (41.0-53.0); Hemoglobin 12.8 g/dL (13.5-17.5); Lymphocytes # (auto) 1.1 10 ^3/uL (0.4-5.4); Lymphocytes % (auto) 10.3 % (10.0-50.0); Mean Corpuscular Hemoglobin 29.5 pg (28.0-32.0); Mean Corpuscular Hgb Conc. 33.1 g/dL (32.0-36.0); Mean Corpuscular Volume 88.9 fL (80.0-100.0); Monocytes # (auto) 1.2 10 ^3/uL (0-1.3); Neutrophils # (auto) 7.9 10 ^3/uL (1.6-8.6); Neutrophils % (auto) 76.2 % (37.0-80.0); Red Blood Cells 4.34 10^6/uL (4.5-5.90); White Blood Cell 10.3 10^3/uL (4.4-10.8)
[2023-03-23 06:01] LABS: Calcium 9.2 mg/dL (8.5-10.1); Potassium 4.5 mmol/L (3.5-5.1); Red Cell Distribution Width 22.7 % (11.8-14.3)
[2023-03-23] MEDS: InsuLIN REG 1unit/0.01ml Soln (100units/ml) SC SCH ×4 (06:39→22:50)
[2023-03-23] MEDS: ACCU-CHEK COMFORT CURVE STRIP VI SCH ×4 (06:40→22:48)
[2023-03-23 08:00] VITALS: BP 107/43
[2023-03-23] MEDS: APIXABAN 2.5 MG TAB PO SCH ×2 (10:25→22:50)
[2023-03-23] MEDS: FUROSEMIDE 40 MG TAB PO SCH (10:25)
[2023-03-23] MEDS: AMIODARONE HCL 200 MG TAB PO SCH (10:25)
[2023-03-23 13:14] VITALS: BP_SYST 121; BP_SYST 130; BP_DIAS 51; BP_DIAS 81
[2023-03-23 16:41] VITALS: BP 111/52
[2023-03-23] MEDS: FUROSEMIDE 40 MG/4 ML VIAL IV SCH (18:28)
[2023-03-23 22:00] VITALS: BP 117/53
[2023-03-24 05:00] VITALS: BP 105/49
[2023-03-24 06:09] LABS: Hematocrit 38.4 % (41.0-53.0); Hemoglobin 12.8 g/dL (13.5-17.5); Mean Corpuscular Hemoglobin 29.4 pg (28.0-32.0); Mean Corpuscular Hgb Conc. 33.3 g/dL (32.0-36.0); Mean Corpuscular Volume 88.5 fL (80.0-100.0); Red Blood Cells 4.33 10^6/uL (4.5-5.90); White Blood Cell 9.4 10^3/uL (4.4-10.8)
[2023-03-24 06:23] LABS: Calcium 8.7 mg/dL (8.5-10.1); Potassium 3.9 mmol/L (3.5-5.1)
[2023-03-24 06:25] LABS: BUN/Creatinine Ratio 28.7 (10.0-20.0)
[2023-03-24 06:26] LABS: Basophils % (manual) 0 (0.0-2.0); Blast Cells 0; Eosinophils % (manual) 0 (0-7); Promyelocytes % 0; Reactive Lymphocytes 0
[2023-03-24] MEDS: ACCU-CHEK COMFORT CURVE STRIP VI SCH ×4 (06:28→22:32)
[2023-03-24] MEDS: InsuLIN REG 1unit/0.01ml Soln (100units/ml) SC SCH ×4 (06:30→22:43)
[2023-03-24 09:00] VITALS: BP 102/92
[2023-03-24] MEDS ORDERED: IPRATROPIUM BROM 0.5 MG/2.5ML INH SOL NEB PRN (11:00)
[2023-03-24] MEDS ORDERED: IPRATROPIUM BROM 0.5 MG/2.5ML INH SOL NEB ONE (11:00)
[2023-03-24] MEDS: FUROSEMIDE 40 MG/4 ML VIAL IV SCH (11:11)
[2023-03-24] MEDS: AMIODARONE HCL 200 MG TAB PO SCH (11:11)
[2023-03-24] MEDS: APIXABAN 2.5 MG TAB PO SCH ×2 (11:11→22:32)
[2023-03-24 13:00] VITALS: BP 122/54
[2023-03-24 14:52] LABS: Band Neutrophils % (manual) 8; Lymphocytes % (manual) 14 (10.0-50.0); Metamyelocytes % 1; Monocytes % (manual) 10 (0-12); Myelocytes % 1
[2023-03-24 17:00] VITALS: BP 127/89
[2023-03-24 20:43] VITALS: BP 127/89
[2023-03-24 22:00] VITALS: BP 115/54
[2023-03-25 05:00] VITALS: BP 112/60
[2023-03-25] MEDS: InsuLIN REG 1unit/0.01ml Soln (100units/ml) SC SCH ×2 (06:38→11:30)
[2023-03-25] MEDS: ACCU-CHEK COMFORT CURVE STRIP VI SCH ×2 (06:38→11:30)
[2023-03-25 06:49] LABS: Albumin 3.2 g/dL (3.4-5.0); Calcium 8.8 mg/dL (8.5-10.1); Potassium 3.6 mmol/L (3.5-5.1)
[2023-03-25 06:54] LABS: BUN/Creatinine Ratio 28.6 (10.0-20.0); Bilirubin, Total 0.7 mg/dL (0.2-1.0); Total Protein 7.7 g/dL (6.4-8.2)
[2023-03-25 09:00] VITALS: BP 108/62
[2023-03-25] MEDS: APIXABAN 2.5 MG TAB PO SCH (10:46)
[2023-03-25] MEDS: AMIODARONE HCL 200 MG TAB PO SCH (10:46)
[2023-03-25] MEDS: FUROSEMIDE 40 MG/4 ML VIAL IV SCH (10:46)
[2023-03-25 12:00] VITALS: BP 97/54
[2023-03-25 17:00] VITALS: BP 100/50
[2023-03-25 17:41] VITALS: BP 108/62
== END 2023-03-25 18:54 | disposition home or self-care (01) | DRG 308 ==
LOC: ER 16:02 → EDBD 16:02 → TELE 22:52 → TELE-WESTW 03-21 21:46
PROVIDERS: ADMIT Nurse Practitioner; ATTEND Internal Medicine
DX: I49.5 Sick sinus syndrome (principal); I50.43 Acute on chronic combined systolic (congestive) and diastolic (congestive) heart failure; N17.0 Acute kidney failure with tubular necrosis; J96.21 Acute and chronic respiratory failure with hypoxia; I13.0 Hypertensive heart and chronic kidney disease with heart failure and stage 1 through stage 4 chronic kidney disease, or unspecified chronic kidney disease; D68.69 Other thrombophilia; J44.0 Chronic obstructive pulmonary disease with (acute) lower respiratory infection; J44.9 Chronic obstructive pulmonary disease, unspecified; D64.9 Anemia, unspecified; N18.32 Chronic kidney disease, stage 3b; I95.9 Hypotension, unspecified; E87.5 Hyperkalemia; I48.91 Unspecified atrial fibrillation; E11.22 Type 2 diabetes mellitus with diabetic chronic kidney disease; I25.10 Atherosclerotic heart disease of native coronary artery without angina pectoris; E66.01 Morbid (severe) obesity due to excess calories; K21.9 Gastro-esophageal reflux disease without esophagitis; E78.5 Hyperlipidemia, unspecified; D63.1 Anemia in chronic kidney disease; Z79.01 Long term (current) use of anticoagulants; Z87.11 Personal history of peptic ulcer disease; Z83.3 Family history of diabetes mellitus; Z90.49 Acquired absence of other specified parts of digestive tract; Z68.35 Body mass index [BMI] 35.0-35.9, adult
CPT/HCPCS: 36415; 71045; 80048; 80053; 81001; 82962; 83605; 83735; 83880; 84484; 85007; 85025; 85027; 87081; 93005; 94640; 96365; 96375; 97110; 97116; 97163; 97530; G0378; J1100; J1815

== ENCOUNTER 2023-04-05 14:41 | Inpatient (IN) | payer OTHER, MEDICAID ==
[~2023-04-05] VITALS: Ht 165.1 cm; Wt 88.6 kg
[~2023-04-05 14:41] MED LIST changes: +levoFLOXacin 500MG 100 ML IV ONE
[2023-04-05] MEDS ORDERED: DexAMETHasone INJECTION 10 MG in D5W 5% 50 ML IV ONE (15:15)
[2023-04-05] MEDS ORDERED: IPRATROPIUM BROM 0.5 MG/2.5ML INH SOL NEB ONE (15:15)
[2023-04-05] MEDS ORDERED: ALBUTEROL SULF 2.5 MG/0.5ML(0.5%) NEB SOLN NEB ONE (15:15)
[2023-04-05 15:41] LABS: Albumin 2.9 g/dL (3.4-5.0); Calcium 8.7 mg/dL (8.5-10.1); Magnesium 1.8 mg/dL (1.6-2.6); Potassium 4.5 mmol/L (3.5-5.1)
[2023-04-05] MEDS ORDERED: AZITHROMYCIN 500MG/ 250ML 250 ML IV ONE (15:45)
[2023-04-05 15:46] LABS: BUN/Creatinine Ratio 17.5 (10.0-20.0); Bilirubin, Total 0.7 mg/dL (0.2-1.0); Total Protein 7.7 g/dL (6.4-8.2)
[2023-04-05 16:00] LABS: Hematocrit 34.2 % (41.0-53.0); Hemoglobin 11.4 g/dL (13.5-17.5); Mean Corpuscular Hemoglobin 30.3 pg (28.0-32.0); Mean Corpuscular Hgb Conc. 33.2 g/dL (32.0-36.0); Mean Corpuscular Volume 91.1 fL (80.0-100.0); Red Blood Cells 3.75 10^6/uL (4.5-5.90); White Blood Cell 6.5 10^3/uL (4.4-10.8)
[2023-04-05 16:03] LABS: Lactic Acid w/Reflex 2.4 mmol/L (0.4-2.0)
[2023-04-05 16:09] LABS: Red Cell Distribution Width 21.8 % (11.8-14.3)
[2023-04-05 16:11] LABS: Band Neutrophils % (manual) 0; Basophils % (manual) 0 (0.0-2.0); Blast Cells 0; Eosinophils % (manual) 0 (0-7); Metamyelocytes % 0; Myelocytes % 0; Promyelocytes % 0; Reactive Lymphocytes 0
[2023-04-05 16:39] LABS: Lymphocytes % (manual) 28 (10.0-50.0); Monocytes % (manual) 15 (0-12)
[2023-04-05] MEDS ORDERED: MORPHINE SULFATE INJ 2 MG/ml SYRG IV PRN (18:15)
[2023-04-05] MEDS ORDERED: IPRATROPIUM BROM 0.5 MG/2.5ML INH SOL NEB PRN (18:15)
[2023-04-05] MEDS ORDERED: DOCUSATE SOD 100 MG CAP PO PRN (18:15)
[2023-04-05] MEDS ORDERED: ONDANSETRON HCL 4 MG/2 ML VIAL IV PRN (18:15)
[2023-04-05] MEDS ORDERED: POTASSIUM CHL 20MEQ/100ML 100 ML IV SCH (18:15)
[2023-04-05] MEDS ORDERED: ALBUTEROL SULF 2.5 MG/0.5ML(0.5%) NEB SOLN NEB PRN (18:15)
[2023-04-05] MEDS ORDERED: levoFLOXacin 500MG 100 ML IV ONE (19:15)
[2023-04-05] MEDS: APIXABAN 2.5 MG TAB PO SCH (23:00)
[2023-04-05] MEDS: CARVEDILOL 3.125 MG TAB PO SCH (23:02)
[2023-04-05] MEDS: methylPREDNISolone SOD SUCC 40 MG/ML VL IV SCH (23:02)
[2023-04-05] MEDS: AMIODARONE HCL 200 MG TAB PO SCH (23:02)
[2023-04-06 01:52] VITALS: BP 99/51
[2023-04-06 05:44] LABS: Potassium 4.6 mmol/L (3.5-5.1)
[2023-04-06 05:55] LABS: Albumin 2.6 g/dL (3.4-5.0); BUN/Creatinine Ratio 21.5 (10.0-20.0); Bilirubin, Total 0.6 mg/dL (0.2-1.0); Calcium 9.1 mg/dL (8.5-10.1); Total Protein 7.1 g/dL (6.4-8.2)
[2023-04-06] MEDS: methylPREDNISolone SOD SUCC 40 MG/ML VL IV SCH (06:35)
[2023-04-06] MEDS ORDERED: DEXTROSE (50%) 50ML SYRG IV PRN (07:00)
[2023-04-06] MEDS: ACCU-CHEK COMFORT CURVE STRIP VI SCH ×3 (07:00→17:20)
[2023-04-06] MEDS ORDERED: DexAMETHasone SOD PHOS 10MG/1ML VIAL INJ IV ONE (07:30)
[2023-04-06] MEDS: InsuLIN REG 1unit/0.01ml Soln (100units/ml) SC SCH ×3 (07:44→17:20)
[2023-04-06 08:51] LABS: Basophils # (auto) 0.2 10 ^3/uL (0-0.2); Basophils % (auto) 4.2 % (0.0-2.0); Eosinophils # (auto) 0 10 ^3/uL (0-0.8); Eosinophils % (auto) 0.3 % (0.0-7.0); Hematocrit 33.5 % (41.0-53.0); Hemoglobin 10.9 g/dL (13.5-17.5); Lymphocytes # (auto) 0.9 10 ^3/uL (0.4-5.4); Lymphocytes % (auto) 20.1 % (10.0-50.0); Mean Corpuscular Hemoglobin 30.1 pg (28.0-32.0); Mean Corpuscular Hgb Conc. 32.4 g/dL (32.0-36.0); Mean Corpuscular Volume 92.8 fL (80.0-100.0); Monocytes # (auto) 0.1 10 ^3/uL (0-1.3); Neutrophils # (auto) 3.3 10 ^3/uL (1.6-8.6); Neutrophils % (auto) 73.4 % (37.0-80.0); Nucleated Red Blood Cells % 0.1 %; Red Blood Cells 3.61 10^6/uL (4.5-5.90); Red Cell Distribution Width 21.7 % (11.8-14.3); White Blood Cell 4.5 10^3/uL (4.4-10.8)
[2023-04-06] MEDS: Fluticasone-Umeclidinium-Vilan (Trelegy Ellipta 100-62.5-25 Mcg/I IN SCH (10:00)
[2023-04-06] MEDS ORDERED: levoFLOXacin 250MG 50 ML IV SCH (10:00)
[2023-04-06] MEDS ORDERED: FUROSEMIDE 20 MG/2 ML VIAL IV SCH ×2 (10:00→18:00)
[2023-04-06] MEDS ORDERED: ISOSORBIDE DINITRATE 10 MG TAB PO SCH (10:00)
[2023-04-06] MEDS: PANTOPRAZOLE 40 MG/10 ML VIAL INJ IV SCH (10:30)
[2023-04-06] MEDS: AMIODARONE HCL 200 MG TAB PO SCH (10:31)
[2023-04-06] MEDS: GEMFIBROZIL 600 MG TAB PO SCH (10:31)
[2023-04-06] MEDS: CHOLECALCIFEROL (VITD3) 2,000 UNIT CAP/TAB PO SCH (10:31)
[2023-04-06] MEDS: CARVEDILOL 3.125 MG TAB PO SCH (10:34)
[2023-04-06] MEDS: APIXABAN 2.5 MG TAB PO SCH (10:35)
[2023-04-06] MEDS: LOSARTAN POTASSIUM 25 MG TAB PO SCH (10:35)
[2023-04-06] MEDS: FLUoxetine HCL 10 MG CAP PO SCH (10:37)
[2023-04-06] MEDS ORDERED: DOXYCYCLINE 100 MG TAB/CAP PO ONE (11:00)
[2023-04-06] MEDS ORDERED: cefTRIAXone 1GM/50ML D5W 50 ML IV ONE (11:00)
[2023-04-06] MEDS ORDERED: ALBUMIN 25% 100 ML IV ONE (11:45)
[2023-04-06] MEDS ORDERED: SODIUM CHLORIDE 0.9% 250 ML IV ONE (15:45)
[2023-04-06] MEDS: DexAMETHasone SOD PHOS 10MG/1ML VIAL INJ IV SCH (16:11)
[2023-04-06] MEDS: DOBUTamine 1000MCG/ML 250 ML IV SCH ×2 (17:19→17:22)
[2023-04-06] MEDS ORDERED: ASPI-325 PO (17:48)
[2023-04-06] MEDS ORDERED: CHOL20TA PO (17:48)
[2023-04-06] MEDS ORDERED: ALBU108A5 INH (17:48)
[2023-04-06] MEDS ORDERED: LORA-483 PO (17:48)
[2023-04-06] MEDS ORDERED: AMIO200T13 PO (17:48)
[2023-04-06] MEDS ORDERED: PRED20TA2 PO (17:48)
[2023-04-06] MEDS ORDERED: LEVA1AER PO (17:48)
[2023-04-06] MEDS ORDERED: MONT-8 PO (17:48)
[2023-04-06 18:48] LABS: Creatinine, Urine 57 mg/dL (30.0-125.0); Sodium Urine 22 mmol/L (40-220)
[2023-04-06 19:55] VITALS: BP 91/52
[2023-04-06] MEDS ORDERED: AMIO200T33 PO (20:47)
[2023-04-06 22:55] VITALS: BP 94/44
[2023-04-07] MEDS: APIXABAN 2.5 MG TAB PO SCH ×3 (00:01→21:07)
[2023-04-07] MEDS: AMIODARONE HCL 200 MG TAB PO SCH ×3 (00:01→21:06)
[2023-04-07] MEDS: DOXYCYCLINE 100 MG TAB/CAP PO SCH ×3 (00:01→21:07)
[2023-04-07] MEDS: InsuLIN REG 1unit/0.01ml Soln (100units/ml) SC SCH ×5 (00:04→21:16)
[2023-04-07 05:00] VITALS: BP 103/50
[2023-04-07] MEDS: DOBUTamine 1000MCG/ML 250 ML IV SCH (05:09)
[2023-04-07] MEDS ORDERED: ALBUMIN 25% 50 ML IV ONE (05:15)
[2023-04-07 06:14] LABS: Basophils # (auto) 0 10 ^3/uL (0-0.2); Basophils % (auto) 0.1 % (0.0-2.0); Eosinophils # (auto) 0 10 ^3/uL (0-0.8); Hematocrit 29.2 % (41.0-53.0); Hemoglobin 9.9 g/dL (13.5-17.5); Lymphocytes # (auto) 0.8 10 ^3/uL (0.4-5.4); Lymphocytes % (auto) 7.7 % (10.0-50.0); Mean Corpuscular Hemoglobin 30.4 pg (28.0-32.0); Mean Corpuscular Hgb Conc. 33.9 g/dL (32.0-36.0); Mean Corpuscular Volume 89.6 fL (80.0-100.0); Monocytes # (auto) 0.8 10 ^3/uL (0-1.3); Monocytes % (auto) 7.1 % (0.0-12.0); Neutrophils # (auto) 9.1 10 ^3/uL (1.6-8.6); Neutrophils % (auto) 85.1 % (37.0-80.0); Nucleated Red Blood Cells % 0.1 %; Red Blood Cells 3.26 10^6/uL (4.5-5.90); White Blood Cell 10.8 10^3/uL (4.4-10.8)
[2023-04-07 06:31] LABS: Red Cell Distribution Width 21.2 % (11.8-14.3)
[2023-04-07 06:42] LABS: Calcium 8.9 mg/dL (8.5-10.1); Magnesium 2.1 mg/dL (1.6-2.6); Potassium 4.3 mmol/L (3.5-5.1)
[2023-04-07] MEDS: ACCU-CHEK COMFORT CURVE STRIP VI SCH ×5 (06:51→21:10)
[2023-04-07 09:00] VITALS: BP 85/43
[2023-04-07] MEDS ORDERED: ALBUMIN 25% 100 ML IV ONE (09:00)
[2023-04-07] MEDS: Fluticasone-Umeclidinium-Vilan (Trelegy Ellipta 100-62.5-25 Mcg/I IN SCH (10:00)
[2023-04-07] MEDS: LOSARTAN POTASSIUM 25 MG TAB PO SCH (10:00)
[2023-04-07] MEDS ORDERED: DexAMETHasone SOD PHOS 10MG/1ML VIAL INJ IV SCH (10:00)
[2023-04-07] MEDS: CHOLECALCIFEROL (VITD3) 2,000 UNIT CAP/TAB PO SCH (12:10)
[2023-04-07] MEDS: FLUoxetine HCL 10 MG CAP PO SCH (12:10)
[2023-04-07] MEDS: GEMFIBROZIL 600 MG TAB PO SCH (12:10)
[2023-04-07] MEDS: DexAMETHasone SOD PHOS 10MG/1ML VIAL INJ IV SCH (12:13)
[2023-04-07] MEDS: cefTRIAXone 1GM/50ML D5W 50 ML IV SCH (12:14)
[2023-04-07] MEDS: PANTOPRAZOLE 40 MG/10 ML VIAL INJ IV SCH (12:38)
[2023-04-07 13:00] VITALS: BP 89/38
[2023-04-07 17:00] VITALS: BP 100/50
[2023-04-07 22:00] VITALS: BP 113/59
[2023-04-08 05:00] VITALS: BP 105/53
[2023-04-08] MEDS: InsuLIN REG 1unit/0.01ml Soln (100units/ml) SC SCH ×4 (06:20→21:40)
[2023-04-08] MEDS: ACCU-CHEK COMFORT CURVE STRIP VI SCH ×4 (06:21→21:34)
[2023-04-08 06:22] LABS: Basophils # (auto) 0 10 ^3/uL (0-0.2); Eosinophils # (auto) 0 10 ^3/uL (0-0.8); Hematocrit 32.4 % (41.0-53.0); Hemoglobin 10.7 g/dL (13.5-17.5); Lymphocytes # (auto) 0.5 10 ^3/uL (0.4-5.4); Lymphocytes % (auto) 5.6 % (10.0-50.0); Mean Corpuscular Hemoglobin 30.4 pg (28.0-32.0); Mean Corpuscular Volume 92.1 fL (80.0-100.0); Monocytes # (auto) 0.5 10 ^3/uL (0-1.3); Monocytes % (auto) 6.2 % (0.0-12.0); Neutrophils # (auto) 7.4 10 ^3/uL (1.6-8.6); Neutrophils % (auto) 88.2 % (37.0-80.0); Nucleated Red Blood Cells % 0.2 %; Red Blood Cells 3.52 10^6/uL (4.5-5.90); Red Cell Distribution Width 20.9 % (11.8-14.3); White Blood Cell 8.4 10^3/uL (4.4-10.8)
[2023-04-08 06:55] LABS: BUN/Creatinine Ratio 24.8 (10.0-20.0); Calcium 8.6 mg/dL (8.5-10.1); Potassium 4.2 mmol/L (3.5-5.1)
[2023-04-08 09:00] VITALS: BP 111/84
[2023-04-08] MEDS: AMIODARONE HCL 200 MG TAB PO SCH ×2 (09:11→21:32)
[2023-04-08] MEDS: DOXYCYCLINE 100 MG TAB/CAP PO SCH ×2 (09:11→21:32)
[2023-04-08] MEDS: APIXABAN 2.5 MG TAB PO SCH ×2 (09:11→21:32)
[2023-04-08] MEDS: cefTRIAXone 1GM/50ML D5W 50 ML IV SCH (09:11)
[2023-04-08] MEDS: GEMFIBROZIL 600 MG TAB PO SCH (09:11)
[2023-04-08] MEDS: CHOLECALCIFEROL (VITD3) 2,000 UNIT CAP/TAB PO SCH (09:11)
[2023-04-08] MEDS: FLUoxetine HCL 10 MG CAP PO SCH (09:11)
[2023-04-08] MEDS: DexAMETHasone SOD PHOS 10MG/1ML VIAL INJ IV SCH (09:12)
[2023-04-08] MEDS: Fluticasone-Umeclidinium-Vilan (Trelegy Ellipta 100-62.5-25 Mcg/I IN SCH (09:13)
[2023-04-08] MEDS: PANTOPRAZOLE 40 MG/10 ML VIAL INJ IV SCH (09:13)
[2023-04-08] MEDS: LOSARTAN POTASSIUM 25 MG TAB PO SCH (10:00)
[2023-04-08 13:00] VITALS: BP 153/51
[2023-04-08 17:00] VITALS: BP 129/56
[2023-04-08 22:00] VITALS: BP 120/64
[2023-04-08 23:32] VITALS: BP 129/56
[2023-04-09 05:00] VITALS: BP 115/68
[2023-04-09] MEDS: ACCU-CHEK COMFORT CURVE STRIP VI SCH ×3 (06:10→17:00)
[2023-04-09] MEDS: InsuLIN REG 1unit/0.01ml Soln (100units/ml) SC SCH ×3 (06:10→17:00)
[2023-04-09 08:45] VITALS: BP 132/70
[2023-04-09] MEDS: cefTRIAXone 1GM/50ML D5W 50 ML IV SCH (09:32)
[2023-04-09] MEDS: AMIODARONE HCL 200 MG TAB PO SCH (09:32)
[2023-04-09] MEDS: LOSARTAN POTASSIUM 25 MG TAB PO SCH (09:34)
[2023-04-09] MEDS: DOXYCYCLINE 100 MG TAB/CAP PO SCH (09:34)
[2023-04-09] MEDS: GEMFIBROZIL 600 MG TAB PO SCH (09:34)
[2023-04-09] MEDS: APIXABAN 2.5 MG TAB PO SCH (09:34)
[2023-04-09] MEDS: PANTOPRAZOLE 40 MG/10 ML VIAL INJ IV SCH (09:35)
[2023-04-09] MEDS: CHOLECALCIFEROL (VITD3) 2,000 UNIT CAP/TAB PO SCH (09:35)
[2023-04-09] MEDS: DexAMETHasone SOD PHOS 10MG/1ML VIAL INJ IV SCH (09:38)
[2023-04-09] MEDS: FLUoxetine HCL 10 MG CAP PO SCH (09:40)
[2023-04-09] MEDS: Fluticasone-Umeclidinium-Vilan (Trelegy Ellipta 100-62.5-25 Mcg/I IN SCH (11:25)
[2023-04-09 13:00] VITALS: BP 113/59
[2023-04-09 16:47] VITALS: BP 138/67
== END 2023-04-09 18:49 | disposition hospice, home (50) | DRG 177 ==
LOC: ER 14:41 → TELE 18:14 → TELE-WESTW 04-06 19:00
PROVIDERS: ADMIT Nurse Practitioner Family; ATTEND Internal Medicine
PROC: 05HB33Z Insertion of Infusion Device into Right Basilic Vein, Percutaneous Approach (ICD-10-PCS; principal; 2023-04-06)
PROC: B54MZZA Ultrasonography of Right Upper Extremity Veins, Guidance (ICD-10-PCS; 2023-04-06)
DX: J69.0 Pneumonitis due to inhalation of food and vomit (principal); E43 Unspecified severe protein-calorie malnutrition; J96.21 Acute and chronic respiratory failure with hypoxia; I50.43 Acute on chronic combined systolic (congestive) and diastolic (congestive) heart failure; J44.0 Chronic obstructive pulmonary disease with (acute) lower respiratory infection; N17.9 Acute kidney failure, unspecified; D68.69 Other thrombophilia; E87.29 Other acidosis; J45.901 Unspecified asthma with (acute) exacerbation; J44.1 Chronic obstructive pulmonary disease with (acute) exacerbation; I11.0 Hypertensive heart disease with heart failure; R79.89 Other specified abnormal findings of blood chemistry; I48.91 Unspecified atrial fibrillation; E11.9 Type 2 diabetes mellitus without complications; E78.5 Hyperlipidemia, unspecified; I50.82 Biventricular heart failure; D64.9 Anemia, unspecified; I25.10 Atherosclerotic heart disease of native coronary artery without angina pectoris; Z90.49 Acquired absence of other specified parts of digestive tract; Z68.32 Body mass index [BMI] 32.0-32.9, adult
CPT/HCPCS: 36415; 36600; 71045; 71250; 80048; 80053; 82570; 82805; 82962; 83036; 83605; 83690; 83735; 83880; 84300; 84484; 85007; 85025; 85027; 85379; 87081; 93005; 94640; 96365; 96366; 96368; 96375; C9113; G0378; J0696; J1100; J1815; J1956; J7060; P9047